=== PATIENT | female | born 1970 | race Caucasian/White ===

== ENCOUNTER 2017-10-27 02:42 | Inpatient (IN) | payer MEDICAID, MEDICARE, OTHER ==
--- NOTE | 2017-10-27 02:48 | ED PDOC ---
Arrival/HPI - General Time Seen by Provider: 10/27/17 02:43 Historian: Patient, Family (Daughter) - History of Present Illness Narrative History of Present Illness (Text): 10/27/17 02:47 Breanna Cruz is a 47 year old female, whose past medical history includes alcoholic cirrhosis, lupus, TIPS s/p hepatic encephalopathy, and seizure disorder, who presents to the Emergency department via EMS with altered mental status. Daughter states she noted patient to be altered this morning with associated weakness and reports patient has presented similarly in the past when her ammonia level becomes elevated. Daughter states patient was last seen normal at 17:00 yesterday. Daughter states patient is on the liver transplant list at [facility] and regularly takes lactulose. Patient reports neck pain. Limited HPI and ROS secondary to patient's altered mental status. PMD: Dr. Dori Guzmán Time/Duration: Other (today) Symptom Onset: Gradual Symptom Course: Unchanged Activities at Onset: Light Context: Home Past Medical History - Provider Review Nursing Documentation Reviewed: Yes - Infectious Disease Hx of Infectious Diseases: None - Tetanus Immunization Tetanus Immunization: Unknown - Cardiac Hx Cardiac Disorders: Yes Hx Hypertension: Yes - Pulmonary Hx Respiratory Disorders: No - Neurological Hx Neurological Disorder: Yes Hx Seizures: Yes - HEENT Hx HEENT Disorder: No - Renal Hx Renal Disorder: No - Endocrine/Metabolic Hx Endocrine Disorders: Yes Hx Systemic Lupus Erythematosus: Yes - Hematological/Oncological Hx Blood Disorders: No - Integumentary Hx Dermatological Disorder: No - Musculoskeletal/Rheumatological Hx Musculoskeletal Disorders: Yes Hx Falls: Yes - Gastrointestinal Hx Gastrointestinal Disorders: Yes Hx Liver Failure: Yes (on transplant list) - Genitourinary/Gynecological Hx Genitourinary Disorders: No - Psychiatric Hx Psychophysiologic Disorder: Yes Hx Anxiety: Yes Hx Substance Use: (unknown) - Past Surgical History Past Surgical History: No Previous - Surgical History Hx Orthopedic Surgery: Yes - Anesthesia Hx Anesthesia: Yes Hx Anesthesia Reactions: No Hx Malignant Hyperthermia: No - Suicidal Assessment Feels Threatened In Home Enviroment: No Family/Social History - Physician Review Nursing Documentation Reviewed: Yes Family/Social History: Unknown Family HX Smoking Status: Former Smoker Hx Alcohol Use: (unknown) Hx Substance Use: (unknown) Hx Substance Use Treatment: No Allergies/Home Meds Allergies/Adverse Reactions: Allergies No Known Allergies Allergy (Verified 10/27/17 02:47) Home Medications: Home Meds Medication Instructions Recorded Confirmed Rifaximin [Xifaxan] 550 mg PO BID 07/28/14 10/27/17 Calcium/Vitamin D [Oyster Shell 1 tab PO ACBD 10/27/17 10/27/17 Calcium/Vitamin D 500 mg-200 IU] Folic Acid 1 mg PO DAILY 10/27/17 10/27/17 Furosemide [Lasix] 20 mg PO DAILY 10/27/17 10/27/17 Hydroxychloroquine Sulfate 200 mg PO BID 10/27/17 10/27/17 Isoniazid [Niazid] 300 mg PO DAILY 10/27/17 10/27/17 Spironolactone [Aldactone] 50 mg PO DAILY 10/27/17 10/27/17 hydrOXYzine HCl [Atarax] 25 mg PO DAILY 10/27/17 10/27/17 Review of Systems - Review of Systems Systems not reviewed;Unavailable: Altered Mental Status Musculoskeletal: Neck Pain Neurological: Other (+altered mental status, +weakness) Physical Exam - Physical Exam Physical Exam Limitations: Altered Mental Status Vital Signs Reviewed: Yes Vital Signs Temp Pulse Resp BP Pulse Ox 10/27/17 05:44 72 17 126/72 100 10/27/17 04:48 78 18 95 10/27/17 04:10 84 17 138/87 95 10/27/17 02:43 98.3 F 79 18 115/76 94 L Temperature: Afebrile Blood Pressure: Normal Pulse: Regular Respiratory Rate: Normal Appearance: Positive for: Non-Toxic Pain Distress: None Mental Status: Positive for: other (Drowsy) Finger Stick Blood Glucose: 81 - Systems Exam Head: Present: Atraumatic, Normocephalic Pupils: Present: PERRL Extroacular Muscles: Present: EOMI Conjunctiva: Present: Normal Mouth: Present: Moist Mucous Membranes Neck: Present: Normal Range of Motion. No: Meningeal Signs, MIDLINE TENDERNESS , Paraspinal Tenderness Respiratory/Chest: Present: Clear to Auscultation, Good Air Exchange. No: Respiratory Distress, Accessory Muscle Use Cardiovascular: Present: Regular Rate and Rhythm, Normal S1, S2. No: Murmurs Abdomen: Present: Normal Bowel Sounds. No: Tenderness, Distention, Peritoneal Signs Back: No: CVA Tenderness, Midline Tenderness, Paraspinal Tenderness Upper Extremity: Present: NORMAL PULSES, Neurovascularly Intact, Capillary Refill < 2s, Other (Weakness in bilateral upper extremities). No: Cyanosis, Edema, Tenderness, Swelling, Erythema, Deformity Lower Extremity: Present: Other (Weakness in bilateral lower extremities). No: Edema, CALF TENDERNESS, Cyanosis Neurological: Present: GCS=15, CN II-XII Intact, Other (Weakness in all extremities) Skin: Present: Warm, Dry, Normal Color. No: Rashes Psychiatric: No: Alert (Drowsy) Medical Decision Making ED Course and Treatment: 10/27/17 03:04 Impression: 47 year old female presents to the Emergency department via EMS with an altered mental status and weakness. Plan: -- CT Head -- EKG, -- CXR -- Labs, ammonia level, alcohol level, cardiac enzymes, blood cultures -- Urinalysis, Urine Cultures, Urine Drug Screen -- Reassess and disposition Prior Visits: Notes and results from previous visits were reviewed. Patient was last seen in the emergency department on 01/05/14 for seizures. Patient was discharged home. Progress Notes: 10/27/17 03:55 Reviewed EKG, NSR at 76 bpm. Possible left atrial enalrgement. No acute changes. 10/27/17 04:27 CT Head shows: Brain: Mild atrophy. 4.7 x 1.4 x 2.7 cm hemorrhage within/about right basal ganglia. Mild surrounding edema. Grossly preserved moreira-white matter differentiation. Ventricles: No hydrocephalus. Minimal amount of hemorrhage within ventricle. Midline shift: None. Bones/joints: No acute fracture. Deformity of left mandibular condyle with subluxation of temporomandibular joint. Soft tissues: Unremarkable. Sinuses: No acute sinusitis. Mastoid air cells: No mastoid effusion. Orbits: Unremarkable as visualized. IMPRESSION: 1. Intraparenchymal hemorrhage, likely hypertensive. 2. Incidental/non-acute findings are described above. 10/27/17 04:[address] Mccall, neurosurgeon, who is aware and agrees with plan. States not a surgical case, he will consult. 10/27/17 04:[address] Quintana, service desk analyst, who is aware and agrees to evaluate pt for ICU admission. Pt will be admitted to ICU for intracerebral bleed under the hospitalist service. - Critical Care Critical Care Minutes: 30 minutes (management of intracerebral bleed) - Lab Interpretations Microbiology Results: Microbiology Results 10/27/17 03:45 Blood-Venous Blood Culture - Preliminary NO GROWTH AFTER 48 HOURS 10/27/17 03:25 Blood-Venous Blood Culture - Preliminary NO GROWTH AFTER 48 HOURS Lab Results: 10/27/17 03:45 10/27/17 03:45 Lab Results 10/27/17 04:50: Blood Type O POSITIVE, Antibody Screen Negative, BBK History Checked Patient has bt 10/27/17 03:45: Acetaminophen < 10.0 L 10/27/17 03:45: Alcohol, Quantitative < 10 10/27/17 03:45: Sodium 141, Potassium 4.1, Chloride 108 H, Carbon Dioxide 26, Anion Gap 11, BUN 12, Creatinine 0.6 L, Est GFR ( Amer) > 60, Est GFR ( Non-Af Amer) > 60, Random Glucose 81, Calcium 8.4, Phosphorus 4.1, Magnesium 1.7 , Total Bilirubin 3.3 H, AST 111 H, ALT 56, Alkaline Phosphatase 297 H, Lactate Dehydrogenase 1174 H, Total Creatine Kinase 141, Troponin I < 0.01, Total Protein 7.4, Albumin 2.4 L, Globulin 5.0, Albumin/Globulin Ratio 0.5 L 10/27/17 03:45: PT 20.5 H, INR 1.76 H, APTT 46.7 H 10/27/17 03:45: WBC 2.9 L*, RBC 2.87 L, Hgb 9.9 L, Hct 30.4 L, MCV 105.9 H, MCH 34.5, MCHC 32.6, RDW 19.7 H, Plt Count 118 L, MPV 9.3, Gran % 45.2 L, Lymph % ( Auto) 30.2, [place] % (Auto) 19.8 H, Eos % (Auto) 3.1, Baso % (Auto) 1.7, Gran # 1.30 L, Lymph # (Auto) 0.9 L, [place] # (Auto) 0.6, Eos # (Auto) 0.1, Baso # (Auto ) 0.05 10/27/17 02:15: Ammonia 45 H I have reviewed the lab results: Yes - RAD Interpretation Radiology Orders: 10/27/17 02:49 HEAD W/O CONTRAST [CT] Stat 10/27/17 02:50 CHEST TWO VIEWS (PA/LAT) [RAD] Stat [employer] Rental Clerk: Radiologist - EKG Interpretation Interpreted by ED Physician: Yes Type: 12 lead EKG - Medication Orders Current Medication Orders: Albuterol/Ipratropium (Duoneb 3 Mg/0.5 Mg (3 Ml) Ud) 3 ml IH [id number] PRN PRN Reason: Shortness of Breath Folic Acid (Folic Acid) 1 mg PO DAILY [facility] Last Admin: 10/29/17 09:17 Dose: 1 mg Sodium Chloride (Sodium Chloride 0.9%) 1,000 mls @ 100 mls/hr IV .Q10H SARKIS Last Admin: 10/28/17 12:19 Dose: 100 mls/hr eMAR Start Stop Document 10/28/17 12:19 MB (Rec: 10/28/17 12:20 MB ADMIN-PC) Intravenous Solution Start Date 10/28/17 Start Time 03:00 Ibuprofen (Motrin Tab) 400 mg PO Q6H PRN PRN Reason: Headache Last Admin: 10/29/17 09:17 Dose: 400 mg Lactulose (Enulose) 20 gm PO Q6H SARKIS Last Admin: 10/29/17 09:18 Dose: 20 gm Multivitamins/Minerals (Therapeutic-M Tab) 1 tab PO 0800 SARKIS Last Admin: 10/29/17 09:17 Dose: 1 tab Pantoprazole Sodium (Protonix Ec Tab) 40 mg PO DAILY [facility] Last Admin: 10/29/17 09:17 Dose: 40 mg Rifaximin (Xifaxan) 550 mg PO BID SARKIS PRN Reason: Protocol Last Admin: 10/28/17 18:45 Dose: 550 mg Discontinued Medications Acetaminophen (Tylenol 325mg Tab) 325 mg PO STAT STA Stop: 10/28/17 18:23 Last Admin: 10/28/17 18:42 Dose: 325 mg MAR Pain/Vitals Document 10/28/17 18:42 MB (Rec: 10/28/17 18:43 MB ADMIN-PC) Pain Reassessment Is This A Pain ReAssessment? Yes Sleep Is patient sleeping during reassessment? No Presence of Pain Presence of Pain Yes Pain Scale Used Pain Scale Used 5 Location Pain Location Body Gear Generator Set Up Operator Description Constant Scale Used Numeric Pain Behavior Moaning Crying Irritability Withdrawal from Touch Aggravating Factors ADL's Changing Position Alleviating Factors Medication Levetiracetam (Keppra 500mg Ivpb) 500 mg in 100 mls @ 460 mls/hr IV Q12 SARKIS Last Admin: 10/28/17 10:09 Dose: 460 mls/hr eMAR Start Stop Document 10/28/17 10:09 MB (Rec: 10/28/17 10:10 MB ADMIN-PC) Intravenous Solution Start Date 10/28/17 Start Time 10:10 End Date 10/28/17 End time 10:40 Total Infusion Time 30 Phytonadione 10 mg/ Sodium (Chloride) 51 mls @ 100 mls/hr IV ONCE ONE Stop: 10/27/17 09:19 Last Admin: 10/27/17 09:18 Dose: 100 mls/hr eMAR Start Stop Document 10/27/17 09:18 GLI (Rec: 10/27/17 09:19 GLI ADMIN-PC) Intravenous Solution Start Date 10/27/17 Start Time 09:19 End Date 18 Lactulose (Generlac) 200 gm NC BID SARKIS Lactulose (Enulose) 20 gm PO HS SARKIS Last Admin: 10/27/17 23:09 Dose: 20 gm Magnesium Oxide (Mag-Ox) 400 mg PO STAT STA Stop: 10/28/17 15:20 Last Admin: 10/28/17 15:36 Dose: 400 mg Morphine Sulfate (Morphine) 1 mg IVP ONCE ONE Stop: 10/28/17 07:08 Last Admin: 10/28/17 19:02 Dose: Not Given Non-Admin Reason: BP Parameters Not Met MAR Pain Assessment Document 10/28/17 19:02 MB (Rec: 10/28/17 19:02 MB ADMIN-PC) Pain Reassessment Is this a pain reassessment? Yes Sleep Is patient sleeping during reassessment? Yes Morphine Sulfate (Morphine) 1 mg IVP ONCE ONE Stop: 10/28/17 10:16 Last Admin: 10/28/17 19:02 Dose: Not Given Non-Admin Reason: BP Parameters Not Met MAR Pain Assessment Document 10/28/17 19:02 MB (Rec: 10/28/17 19:02 MB ADMIN-PC) Pain Reassessment Is this a pain reassessment? Yes Sleep Is patient sleeping during reassessment? Yes Pantoprazole Sodium (Protonix Inj) 40 mg IVP DAILY SARKIS Last Admin: 10/28/17 10:10 Dose: 40 mg IVP Administration Document 10/28/17 10:10 MB (Rec: 10/28/17 10:10 MB ADMIN-PC) Charges for Administration # of IVP Administrations 1 NIHSS Scale ([place]) Time Performed: 02:48 - How Severe is the Stoke Baseline Level of Consciousness: 1=Drowsy LOC to Questions: 2=Neither correct LOC to commands: 1=Obeys one correctly Best Gaze: 0=Normal Visual: 0=No visual loss Facial: 1=Minor asymmetry Motor Arm - Left: 3=No effort against gravity (falls immediately) Motor Arm - Right: 0=No drift Motor Leg - Left: 3=No effort against gravity (falls immediately) Motor Leg - Right: 0=No drift Limb Ataxia: 2=Present both Sensory: 1=Mild to moderate loss Best Language: 1=Mild to moderate aphasia Dysarthia: 1=Mild to moderate slurring Extinction & Inattention (Neglect): 1=Partial neglect (mild hillary-attention) Score: 17 Risk Level: Mod/Sev Stroke Risk rTPA Inclusion/Exclusion - Refusal of Treatment Patient Refused Treatment: No - Inclusion Criteria for Altepase Patient is 18 years or Older: Yes The Clinical Diagnosis of Ischemic Stroke That is Causing a Potentially Disabling Neurological Deficit: Yes Time of Onset is Well Established to be Less Than 270 Minute Before Treatment Would Begin: No Risk/Benefit Discussed With Patient/Family Member Present: Yes - Exclusion Criteria for Altepase Uncontrolled Hypertension at Time of Treatment (Systolic BP above 185 or Diastolic BP above 110 mmHg): No Active Internal Bleeding: No Known Bleeding Diathesis Including but Not Limited to: Platelets Below 100,000/ mm,PTT Above 40 sec After Heparin Use, Current Use of Oral Anitcoagulant With INR Greater Than 1.7 or PT Greater Than 15 secs: Yes Evidence of an Intracranial Hemorrhage: Yes Evidence of Major Acute Infarct With Signs Greater Than 1/3 MCA Territory: Yes Suspicion of Subarachnoid Hemorrhage on Pretreatment Evaluation Even if CT Head Negative For Hemorrhage: No - Warning to TPA With Conditions Following Conditions Weighed Against Anticipated Benefit: No - Scribe Statement The provider has reviewed the documentation as recorded by the Wilfredo Berg training under Fransisca Cody All medical record entries made by the Nicoletteibmundo were at my direction and personally dictated by me. I have reviewed the chart and agree that the record accurately reflects my personal performance of the history, physical exam, medical decision making, and the department course for this patient. I have also personally directed, reviewed, and agree with the discharge instructions and disposition. Disposition/Present on Arrival - Present on Arrival Any Indicators Present on Arrival: No History of DVT/PE: No History of Uncontrolled Diabetes: No Urinary Catheter: No History Surgical Site Infection Following: None - Disposition Have Diagnosis and Disposition been Completed?: Yes Diagnosis: Intracerebral hemorrhage Disposition: HOSPITALIZED Disposition Time: 05:00 Patient Problems: Current Active Problems Problem Status Onset Intracerebral hemorrhage Acute Condition: CRITICAL
[2017-10-27 03:58] LABS: BASO # 0.05 K/mm3 (0.0-2.0); BASO % 1.7 % (0.0-3.0); EOS # 0.1 (0.0-0.7); EOS % 3.1 % (1.5-5.0); GRAN # 1.3 (1.4-6.5); GRAN % 45.2 % (50.0-68.0); HEMOGLOBIN 9.9 g/dL (12.0-16.0); LYMPH # 0.9 (1.2-3.4); LYMPH % 30.2 % (22.0-35.0); MEAN CELL VOLUME 105.9 fl (80.0-105.0); MEAN CORPUSCULAR HEMOGLOBIN 34.5 pg (25.0-35.0); MEAN CORPUSCULAR HGB CONC 32.6 g/dl (31.0-37.0); MEAN PLATELET VOLUME 9.3 fl (7.0-11.0); MONO # 0.6 (0.1-0.6); MONO % 19.8 % (1.0-6.0); RBC 2.87 10^6/uL (3.5-6.1); RED CELL DISTRIBUTION WIDTH 19.7 % (11.5-14.5)
[2017-10-27 04:00] LABS: WHITE BLOOD COUNT 2.9 10^3/ul (4.5-11.0)
[2017-10-27 04:09] LABS: ALB/GLOB RATIO 0.5 (1.1-1.8); ALBUMIN 2.4 g/dL (3.0-4.8); ALT/SGPT 56 U/L (7-56); AST/SGOT 111 U/L (14-36); BLOOD UREA NITROGEN 12 mg/dL (7-21); CALCIUM 8.4 mg/dL (8.4-10.5); GFR AFRICAN-AMERICAN > 60; GFR NON-AFRICAN AMERICAN > 60; MAGNESIUM 1.7 mg/dL (1.7-2.2)
--- NOTE | 2017-10-27 04:18 | CT ---
EXAM: CT Head Without Intravenous Contrast CLINICAL HISTORY: 47 years old, female; Signs and symptoms; Altered mental status/memory loss; Additional info: AMS TECHNIQUE: Axial computed tomography images of the head/brain without intravenous contrast. All CT scans at this facility use one or more dose reduction techniques, viz.: automated exposure control; ma/kV adjustment per patient size (including targeted exams where dose is matched to indication; i.e. head); or iterative reconstruction technique. Coronal and sagittal reformatted images were created and reviewed. COMPARISON: No relevant prior studies available. FINDINGS: Brain: Mild atrophy. 4.7 x 1.4 x 2.7 cm hemorrhage within/about right basal ganglia. Mild surrounding edema. Grossly preserved moreira-white matter differentiation. Ventricles: No hydrocephalus. Bones/joints: No acute fracture. Deformity of left mandibular condyle with subluxation of temporomandibular joint. Soft tissues: Unremarkable. Sinuses: No acute sinusitis. Mastoid air cells: No mastoid effusion. Orbits: Unremarkable as visualized. IMPRESSION: 1. Intraparenchymal hemorrhage, likely hypertensive. 2. Incidental/non-acute findings are described above.
[2017-10-27 04:20] LABS: TROPONIN I < 0.01 ng/mL
[2017-10-27 05:15] LABS: INR 1.76 (0.93-1.08); PARTIAL THROMBOPLASTIN TIME 46.7 Seconds (25.1-36.5); PROTHROMBIN TIME 20.5 SECONDS (9.4-12.5)
[2017-10-27] MEDS ORDERED: Labetalol 5 mg/ml Inj 20ML IV PRN (06:12)
[2017-10-27] MEDS ORDERED: Lactulose 10 gm/15 ml (Rectal Use) PR ONE (06:20)
--- NOTE | 2017-10-27 06:29 | CP.PCM.HP ---
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 As per patient's daughter they last saw patient well at 4:30 pm. At 1:30 am, when daughter checked on patient patient was slumped on the sofa, and was not responding. Daughter was able to arouse patient, patient was able to say she wanted to void, however when patient tried to get up , her left upper and lower extremities were weak. Upon, evaluating patient in the ED, patient was arousable, denies headache. Patient was voluntary moving her right upper upper and lower extremities. Unable to obtain detail ROS due to mental status. In the ED, patient had CT head revealing right basal ganglia hemorrhage. PMHx: As above PSHx: tips, left knee replacement FMHx: family history of htn Social: former heavy drinker, been sober for 6 years, former tobacco abuse, no illicit drug use. Lives with her kids and boy friend Home meds: as per chart. Present on Admission - Present on Admission Any Indicators Present on Admission: No History of DVT/PE: No History of Uncontrolled Diabetes: No Urinary Catheter: No Decubitus Ulcer Present: No History Surgical Site Infection Following: None Review of Systems - Review of Systems Systems not reviewed;Unavailable: Uncooperative Review of Systems: Unable to obtain detail ROS due to mental status. Past Patient History - Infectious Disease Hx of Infectious Diseases: None - Tetanus Immunizations Tetanus Immunization: Unknown - Past Medical History & Family History Past Medical History?: Yes - Past Social History Smoking Status: Former Smoker Alcohol: Other (former heavy drinker) Drugs: Denies Home Situation {Lives}: With Family - CARDIAC Hx Cardiac Disorders: Yes Hx Hypertension: Yes - PULMONARY Hx Respiratory Disorders: No - NEUROLOGICAL Hx Neurological Disorder: Yes Hx Seizures: Yes - HEENT Hx HEENT Problems: No - RENAL Hx Chronic Kidney Disease: No - ENDOCRINE/METABOLIC Hx Endocrine Disorders: Yes Hx Systemic Lupus Erythematosus: Yes - HEMATOLOGICAL/ONCOLOGICAL Hx Blood Disorders: No - INTEGUMENTARY Hx Dermatological Problems: No - MUSCULOSKELETAL/RHEUMATOLOGICAL Hx Musculoskeletal Disorders: Yes Hx Falls: Yes - GASTROINTESTINAL Hx Gastrointestinal Disorders: Yes Hx Liver Failure: Yes (on transplant list) - GENITOURINARY/GYNECOLOGICAL Hx Genitourinary Disorders: No - PSYCHIATRIC Hx Psychophysiologic Disorder: Yes Hx Anxiety: Yes Hx Substance Use: (unknown) - SURGICAL HISTORY Hx Orthopedic Surgery: Yes - ANESTHESIA Hx Anesthesia: Yes Hx Anesthesia Reactions: No Hx Malignant Hyperthermia: No Meds Allergies/Adverse Reactions: Allergies Allergy/AdvReac Type Severity Reaction Status Date / Time No Known Allergies Allergy Verified 10/27/17 02:47 Physical Exam - Constitutional Appears: No Acute Distress - Head Exam Head Exam: ATRAUMATIC, NORMAL INSPECTION, NORMOCEPHALIC - Eye Exam Eye Exam: EOMI, Normal appearance, PERRL, Scleral icterus Pupil Exam: NORMAL ACCOMODATION, PERRL - ENT Exam ENT Exam: Mucous Membranes Moist - Neck Exam Neck exam: Positive for: Normal Inspection - Respiratory Exam Respiratory Exam: Clear to Auscultation Bilateral, NORMAL BREATHING PATTERN. absent: Rales, Rhonchi, Wheezes, Respiratory Distress, Stridor - Cardiovascular Exam Cardiovascular Exam: REGULAR RHYTHM, RRR, +S1, +S2. absent: Diastolic murmur, Gallop, Irregular Rhythm, JVD, Rubs, Systolic Murmur - GI/Abdominal Exam GI & Abdominal Exam: Normal Bowel Sounds, Soft, Tenderness (diffuse ). absent: Diminished Bowel Sounds, Distended, Firm, Guarding, Rebound, Rigid Additional comments: no fluid wave. - Extremities Exam Extremities exam: Positive for: normal inspection. Negative for: pedal edema, tenderness - Back Exam Back exam: NORMAL INSPECTION - Neurological Exam Neurological exam: Oriented x3 Additional comments: Sleepy but arousable, a&ox3 Left upper and lower extremities with flaccid paralysis. Able to earth mover toes on the left, and right 5/5 motor strength on the right upper and lower extremities left sided neglect right sided facial drooping GCS 15 - Psychiatric Exam Psychiatric exam: Agitated - Skin Skin Exam: Dry, Intact, Warm Results - Vital Signs Recent Vital Signs: Last Vital Signs Temp 98.3 F 10/27/17 02:43 Pulse 72 10/27/17 05:44 Resp 17 10/27/17 05:44 BP 126/72 10/27/17 05:44 Pulse Ox 100 10/27/17 05:44 - Labs Result Diagrams: 10/27/17 03:45 10/27/17 03:45 Labs: Laboratory Results - last 24 hr 10/27/17 10/27/17 10/27/17 02:15 03:45 03:45 WBC 2.9 L* RBC 2.87 L Hgb 9.9 L Hct 30.4 L MCV 105.9 H MCH 34.5 MCHC 32.6 RDW 19.7 H Plt Count 118 L MPV 9.3 Gran % 45.2 L Lymph % (Auto) 30.2 Hand % (Auto) 19.8 H Eos % (Auto) 3.1 Baso % (Auto) 1.7 Gran # 1.30 L Lymph # (Auto) 0.9 L Hand # (Auto) 0.6 Eos # (Auto) 0.1 Baso # (Auto) 0.05 PT 20.5 H INR 1.76 H APTT 46.7 H Sodium Potassium Chloride Carbon Dioxide Anion Gap BUN Creatinine Est GFR ( Amer) Est GFR (Non-Af Amer) Random Glucose Calcium Phosphorus Magnesium Total Bilirubin AST ALT Alkaline Phosphatase Ammonia 45 H Lactate Dehydrogenase Total Creatine Kinase Troponin I Total Protein Albumin Globulin Albumin/Globulin Ratio Acetaminophen Alcohol, Quantitative 10/27/17 10/27/17 10/27/17 03:45 03:45 03:45 WBC RBC Hgb Hct MCV MCH MCHC RDW Plt Count MPV Gran % Lymph % (Auto) Hand % (Auto) Eos % (Auto) Baso % (Auto) Gran # Lymph # (Auto) Hand # (Auto) Eos # (Auto) Baso # (Auto) PT INR APTT Sodium 141 Potassium 4.1 Chloride 108 H Carbon Dioxide 26 Anion Gap 11 BUN 12 Creatinine 0.6 L Est GFR ( Amer) > 60 Est GFR (Non-Af Amer) > 60 Random Glucose 81 Calcium 8.4 Phosphorus 4.1 Magnesium 1.7 Total Bilirubin 3.3 H AST 111 H ALT 56 Alkaline Phosphatase 297 H Ammonia Lactate Dehydrogenase 1174 H Total Creatine Kinase 141 Troponin I < 0.01 Total Protein 7.4 Albumin 2.4 L Globulin 5.0 Albumin/Globulin Ratio 0.5 L Acetaminophen < 10.0 L Alcohol, Quantitative < 10 Assessment & Plan - Assessment and Plan (Free Text) Assessment: 47 Y/O with history of decompensated liver cirrhosis and seizures due to etoh admitted with right basal ganglia hemorrhage. Plan: Neurology - Right basal ganglia hemorrhage likely due to coagulopathy induced by cirrhotic liver INR 1.76, will give 2 units of ffp, and check INR post transfusion Neurosurgery was contact, patient is not surgical candidate Neurology is consult Neuro checks/seizure precaution Head of bed elevation above 45 degrees swallow eval PT/OT Keep SBP between 120-130 - h/o seizure disorder- will resume keppra - h/o hepatic encephalopathy - ammonia is elevated, rectal lactulose to titrate bowel movement to 2-3x per day. Cardio- stable, BP management as above Pulm: stable, supplemental ogygen prn ID: No sepsis at this time, will monitor Was on isonazid for tb prophylaxis, will hold it due to npo status. GI- decompensated liver cirrhosis with elevated T bili compared to previous ( from 2 years ago), no signs of ascites on exam, will obtain abdominal u/s due to abdominal tenderness on exam Meld score 17. NPO pending swallow eval, protonix for gi prophylaxis. Endo- will maintain glucose between 80-110 Renal- stable, will continue to monitor Heme- chronic leukopenia likely due to lupus drug, will monitor for now Chronic anemia- h/h stable, will continue to monitor Lupus drug on hold DVT prophylaxis: scds Patient seen, examined and case discussed with Dr Quintana. - Date & Time Date: 10/27/17 Time: 06:50 NIHSS Stroke Scale 3 - Date/Time Evaluation Performed Date Performed: 10/27/17 Time Performed: 06:05 When Was NIHSS Performed: Baseline - How Severe is the Stroke Level of Consciousness: 1=Drowsy LOC to Questions: 0=Both comments correct LOC to commands: 0=Obeys both correctly Visual: 0=No visual loss Facial: 0=Normal Motor Arm - Left: 4=No movement Motor Arm - Right: 0=No drift Motor Leg - Left: 3=No effort against gravity (falls immediately) Motor Leg - Right: 0=No drift Limb Ataxia: 1=Present Upper or Lower Sensory: 1=Mild to moderate loss Best Language: 0=No aphasia Dysarthia: 0=Normal articulation Extinction & Inattention (Neglect): 1=Partial neglect (mild hillary-attention) Severity Of Stroke: 5-15 = Moderate Stroke <Edmundo Quintana Q - Last Filed: 10/27/17 06:59> Results - Vital Signs Recent Vital Signs: Last Vital Signs Temp 98.4 F 10/27/17 06:48 Pulse 73 10/27/17 06:40 Resp 16 10/27/17 06:40 BP 138/67 10/27/17 06:18 Pulse Ox 100 10/27/17 06:40 - Labs Result Diagrams: 10/27/17 03:45 10/27/17 03:45 Labs: Laboratory Results - last 24 hr 10/27/17 06:15 Urine Opiates Screen Negative Urine Methadone Screen Negative Ur Barbiturates Screen Negative Ur Phencyclidine Scrn Negative Ur Amphetamines Screen Negative U Benzodiazepines Scrn Negative U Oth Cocaine Metabols Negative U Cannabinoids Screen Negative Attending/Attestation - Attestation I have personally seen and examined this patient.: Yes I have fully participated in the care of the patient.: Yes I have reviewed all pertinent clinical information: Yes Notes (Text): 10/27/17 06:58 I agree with the above mentioned note and exam by the resident with the addition /exception of the followin47 y/o female with a PMHx Alcoholic liver cirrhosis, s/p TIPS, seizure disorder secondary to Etoh abuse and SLE presented to the ED via EMS secondary to altered mental status. CT of the head found to have a right basal ganglia bleed with mild edema, no midline shift. Prelim read approximates the size at 4.7x1.4x2.7cm. Patient was AAOx3 during my examination, however did appear slightly lethargic but was able to protect her airway saturating 96% on room air. 5/5 strength RUE/RLE; 0/5 strength LUE, 1/5 strength LLE; sensation intact I discussed the case with Dr. Le in the ED who stated he spoke with Dr. Mccall (NeuroSx) who stated that the patient is not a surgical candidate and recommended to reverse her elevated INR and maintain normotension. Neuro consult placed Awaiting FFP transfusion (already ordered); will repeat PT/INR after FFP is administered Elevated Ammonia; will give lactulose enema given that she will be NPO until she passes a swallow eval. All labs and images available thus far have been reviewed personally total time of care: 45 minutes
[2017-10-27 06:55] LABS: BARBITURATES, UR NEGATIVE (NEGATIVE); BENZODIAZEPINES, UR NEGATIVE (NEGATIVE); OPIATES, UR NEGATIVE (NEGATIVE); PHENCYCLIDINE, UR NEGATIVE (NEGATIVE)
[2017-10-27 07:23] LABS: URINE BILIRUBIN SMALL (NEGATIVE); URINE BLOOD SMALL (NEGATIVE); URINE GLUCOSE (UA) NEGATIVE (NEGATIVE); URINE LEUKOCYTE ESTERASE TRACE Leu/uL (NEGATIVE); URINE NITRATE NEGATIVE (NEGATIVE); URINE PROTEIN TRACE mg/dL (<30 mg/dL)
[2017-10-27 07:27] LABS: URINE APPEARANCE CLEAR (CLEAR); URINE COLOR YELLOW (YELLOW)
[2017-10-27 07:45] LABS: URINE AMORPHOUS SEDIMENT FEW; URINE BACTERIA MANY (NEG)
--- NOTE | 2017-10-27 08:08 | CP.CCUPN ---
<VanessaZaheer - Last Filed: 10/27/17 13:53> CCU Subjective - Physician Review Subjective (Free Text): Zaheer Mendez PGY [address] Arita Patient was seen and examined at bedside in ICU. Patient is arousable but wants to sleep. She is able to move her right side with ease but L leg with more difficulty and L arm none. ROS was limited due to patient's status and unwillingness for exam. Patient's daughter states that the patient's entire medical care is at [facility] and provides a number for "Caryl, the patient's coordinator" [phone]. Daughter states that she was told patient can be transferred once medically stable. A call was made to Caryl but with no response and no voicemail was left. Transfer services @ [phone] were also called and they stated that transfer would be to hepatology but that it would not be fit to transfer from ICU to hepatology The information was relayed to the daughter. CCU Objective - Vital Signs / Intake & Output Vital Signs (Last 4 hours): Vital Signs Temp Pulse Resp BP Pulse Ox 10/27/17 08:00 72 15 100 10/27/17 07:59 73 20 113/72 100 10/27/17 07:50 69 17 98 10/27/17 07:40 70 22 100 10/27/17 07:30 77 25 H 100 10/27/17 07:28 73 30 H 122/61 100 10/27/17 07:20 82 47 H 100 10/27/17 07:10 71 35 H 100 10/27/17 07:00 77 22 100 10/27/17 06:59 75 17 122/67 100 10/27/17 06:50 74 18 100 10/27/17 06:48 98.4 F 10/27/17 06:40 73 16 100 10/27/17 06:36 74 13 100 10/27/17 06:18 97.9 F 78 17 138/67 100 10/27/17 05:44 72 17 126/72 100 - Physical Exam Physical Exam Limitations: Positive for: Clinical Condition, Uncooperative Head: Positive for: Atraumatic, Normocephalic Pupils: Positive for: PERRL Conjunctiva: Positive for: Icteric Ears: Positive for: Normal Mouth: Positive for: Moist Mucous Membranes Pharnyx: Positive for: Normal Nose (Internal): Positive for: Normal Inspection Neck: Positive for: Normal Range of Motion. Negative for: Meningeal Signs, MIDLINE TENDERNESS, Paraspinal Tenderness Respiratory/Chest: Positive for: Clear to Auscultation, Good Air Exchange, Other (on NC 2L). Negative for: Respiratory Distress, Accessory Muscle Use, Wheezes, Rales, Rhonchi Cardiovascular: Positive for: Regular Rate and Rhythm, Normal S1, S2. Negative for: Murmurs Abdomen: Positive for: Normal Bowel Sounds, Mass/Organomegaly (hepatomegaly). Negative for: Tenderness, Distention, Peritoneal Signs Back: Negative for: CVA Tenderness, Midline Tenderness, Paraspinal Tenderness Upper Extremity: Positive for: NORMAL PULSES, Neurovascularly Intact, Capillary Refill < 2s, Other (Weakness in bilateral upper extremities). Negative for: Cyanosis, Edema, Tenderness, Swelling, Erythema, Deformity Lower Extremity: Positive for: Other (Weakness in bilateral lower extremities). Negative for: Edema, CALF TENDERNESS, Cyanosis Neurological: Positive for: GCS=15, CN II-XII Intact, Other (Weakness in all extremities) Skin: Positive for: Warm, Dry. Negative for: Rashes, Normal Color Psychiatric: Negative for: Alert (Drowsy) - Medications Active Medications: Active Medications Generic Name Dose Route Start Last Admin Trade Name Freq PRN Reason Stop Dose Admin Levetiracetam 500 mg in 100 mls @ 460 mls/hr 10/27/17 10:00 Keppra 500mg Ivpb IV Q12 SARKIS Lactulose 200 gm 10/27/17 10:00 Generlac CA BID SARKIS Pantoprazole Sodium 40 mg 10/27/17 10:00 Protonix Inj IVP DAILY SRAKIS - Patient Studies Lab Studies: Lab Studies 10/27/17 10/27/17 Range/Units 06:15 06:15 Urine Color Yellow (YELLOW) Urine Appearance Clear (CLEAR) Urine pH 7.0 (4.7-8.0) Ur Specific [place] 1.015 (1.005-1.035) Urine Protein Trace H (<30 mg/dL) mg/dL Urine Glucose (UA) Negative (NEGATIVE) mg/dL Urine Ketones Negative (NEGATIVE) mg/dL Urine Blood Small H (NEGATIVE) Urine Nitrate Negative (NEGATIVE) Urine Bilirubin Small H (NEGATIVE) Urine Urobilinogen 1.0 H (<1 E.U./dL) E.U./dL Ur Leukocyte Esterase Trace H (NEGATIVE) Simran/uL Urine RBC 2 - 5 (0-2) /hpf Urine WBC 1 - 3 (0-6) /hpf Ur Epithelial Cells 3 - 4 (0-5) /hpf Amorphous Sediment Few Urine Bacteria Many (NEG) Urine Opiates Screen Negative (NEGATIVE) Urine Methadone Screen Negative (NEGATIVE) Ur Barbiturates Screen Negative (NEGATIVE) Ur Phencyclidine Scrn Negative (NEGATIVE) Ur Amphetamines Screen Negative (NEGATIVE) U Benzodiazepines Scrn Negative (NEGATIVE) U Oth Cocaine Metabols Negative (NEGATIVE) U Cannabinoids Screen Negative (NEGATIVE) Laboratory Results - last 24 hr 10/27/17 10/27/17 06:15 06:15 Urine Color Yellow Urine Appearance Clear Urine pH 7.0 Ur Specific [place] 1.015 Urine Protein Trace H Urine Glucose (UA) Negative Urine Ketones Negative Urine Blood Small H Urine Nitrate Negative Urine Bilirubin Small H Urine Urobilinogen 1.0 H Ur Leukocyte Esterase Trace H Urine RBC 2 - 5 Urine WBC 1 - 3 Ur Epithelial Cells 3 - 4 Amorphous Sediment Few Urine Bacteria Many Urine Opiates Screen Negative Urine Methadone Screen Negative Ur Barbiturates Screen Negative Ur Phencyclidine Scrn Negative Ur Amphetamines Screen Negative U Benzodiazepines Scrn Negative U Oth Cocaine Metabols Negative U Cannabinoids Screen Negative Fingerstick Blood Sugar Results: 81 Review of Systems - Review of Systems Systems not reviewed;Unavailable: Uncooperative Critical Care Progress Note - Extremities/Vascular Does the Patient have a Central Venous Catheter?: No Does the Patient need a Central Venous Catheter?: No - Prophylaxis GI Prophylaxis GI: PPI - Prophylaxis DVT Prophylaxis DVT: SCDs - Nutrition Nutrition: Nutrition Category Date Time Status NPO Diet [DIET] Diets 10/27/17 Breakfast Ordered Assessment/Plan - Assessment and Plan (Free Text) Assessment: 47 y/o F with pmh of liver cirrhosis and seizures due to etoh admitted with left sided weakness found to have right basal ganglia hemorrhage on CT. Plan: Neuro: - Right basal ganglia hemorrhage likely due to coagulopathy induced by cirrhotic liver vs poorly controlled htn - Neurosurgery has seen pt (Dr. Mccall); pt not surgical candidate - Neurology is consulted; rec no need for hypertonic saline or steroids at this time, will repeat CT Head - Neuro checks - seizure precautions - aspiration precautions - Head of bed elevated above 45 degrees - Formal swallow eval recommending altered GI/dypshagia diet and monitoring while on PO intake; will advanced diet - PT/OT eval - Keep SBP b/w 140-160 - h/o seizure disorder- continue keppra ivp - h/o hepatic encephalopathy- ammonia is elevated at 45; rifaximin and lactulose started Cardio: stable - maintain MAP >65 mmHg - BP management as above to maintain cerebral perfusion Pulm: - Stable on O2 NC - monitor for signs of hypoxemia or neural changes ID: - No signs sepsis at this time, will monitor - cont to monitor for fevers or signs of infections GI: - decompensated liver cirrhosis with elevated t bili (3.3) - ABD US shows cirrhosis of liver with TIPS in place; no evidence of ascites - diet advanced from NPO - Protonix for GI ppx Endo - Maintain glucose between 80-110 as per NICE trial Renal: - Stable BUN/Cr; will continue to monitor Heme: - INR is elevated at 1.76, pt received 2 units of ffp, recheck INR post infusion - Chronic leukopenia likely due to lupus drug - Chronic macrocytic anemia- h/h stable - check vit B12 and folate DIET: mechanically altered dysphagia diet w/ thin liquids GI ppx: protonix DVT ppx: SCDs Dispo: Good prognosis; transfer to med/surg after FFP and swallow eval Patient was seen, examined and discussed with attending, Dr. Juan J Mendez PGY1 Pager # [phone] <Martinez Arita - Last Filed: 10/28/17 15:11> CCU Objective - Vital Signs / Intake & Output Intake and Output (Last 8hrs): Intake & Output 10/28/17 10/28/17 10/28/17 06:59 14:59 22:59 Intake Total 1514 Output Total 125 Balance 1389 Intake: IV 900 Left Hand 900 Oral 80 Blood Product 534 Output: Urine 125 Urine, Voided 125 Other: # Bowel Movements 0 - Medications Active Medications: Active Medications Generic Name Dose Route Start Last Admin Trade Name Freq PRN Reason Stop Dose Admin Albuterol/Ipratropium 3 ml 10/28/17 12:45 Duoneb 3 Mg/0.5 Mg (3 Ml) Ud IH [id number] PRN Shortness of Breath Folic Acid 1 mg 10/29/17 10:00 Folic Acid PO DAILY SARKIS Sodium Chloride 1,000 mls @ 100 mls/hr 10/27/17 17:30 10/28/17 12:19 Sodium Chloride 0.9% IV 100 mls/hr .Q10H SARKIS Administration Lactulose 20 gm 10/28/17 13:15 10/28/17 14:44 Enulose PO 20 gm Q6H SARKIS Administration Multivitamins/Minerals 1 tab 10/29/17 08:00 Therapeutic-M Tab PO 0800 SARKIS Pantoprazole Sodium 40 mg 10/29/17 10:00 Protonix Ec Tab PO DAILY SARKIS Rifaximin 550 mg 10/27/17 12:00 10/28/17 10:11 Xifaxan PO 550 mg BID SARKIS Administration Protocol - Patient Studies Lab Studies: Microbiology Studies 10/27/17 06:15 Urine Culture - Final Urine,Clean Catch 10-50,000 CFU/ML. MULTIPLE SPECIES. PROBABLE CONTAMINATION. Lab Studies 10/28/17 10/28/17 10/28/17 Range/Units 12:00 05:30 05:30 WBC (4.5-11.0) 10^3/ul RBC (3.5-6.1) 10^6/uL Hgb (12.0-16.0) g/dL Hct (36.0-48.0) % MCV (80.0-105.0) fl MCH (25.0-35.0) pg MCHC (31.0-37.0) g/dl RDW (11.5-14.5) % Plt Count (120.0-450.0) 10^3/uL MPV (7.0-11.0) fl Gran % (50.0-68.0) % Lymph % (Auto) (22.0-35.0) % Cobb % (Auto) (1.0-6.0) % Eos % (Auto) (1.5-5.0) % Baso % (Auto) (0.0-3.0) % Gran # (1.4-6.5) Lymph # (Auto) (1.2-3.4) Cobb # (Auto) (0.1-0.6) Eos # (Auto) (0.0-0.7) Baso # (Auto) (0.0-2.0) K/mm3 Neutrophils % (Manual) (50.0-70.0) % Lymphocytes % (Manual) (22.0-35.0) % Monocytes % (Manual) (1.0-6.0) % Eosinophils % (Manual) (0.0-3.0) % Nucleated RBC % % Platelet Evaluation (NORMAL) Poikilocytosis (manual Anisocytosis (manual) Microcytosis (manual) Macrocytosis (manual) Schistocytes PT 16.8 H (9.4-12.5) SECONDS INR 1.45 H (0.93-1.08) Sodium 142 (132-148) mmol/L Potassium 3.6 (3.6-5.0) mmol/L Chloride 109 H (98-107) mmol/L Carbon Dioxide 25 (21-33) mmol/L Anion Gap 11 (10-20) BUN 13 (7-21) mg/dL Creatinine 0.6 L (0.7-1.2) mg/dl Est GFR ( Amer) > 60 Est GFR (Non-Af Amer) > 60 Random Glucose 69 L (70-110) mg/dL Calcium 8.2 L (8.4-10.5) mg/dL Total Bilirubin 2.9 H (0.2-1.3) mg/dL AST 77 H D (14-36) U/L ALT 41 (7-56) U/L Alkaline Phosphatase 154 H D (38-126) U/L Ammonia 97 H (9-33) umol/L Total Protein 6.5 (5.8-8.3) g/dL Albumin 2.3 L (3.0-4.8) g/dL Globulin 4.3 gm/dL Albumin/Globulin Ratio 0.5 L (1.1-1.8) 10/28/17 10/27/17 Range/Units 05:30 22:29 WBC 3.4 L (4.5-11.0) 10^3/ul RBC 2.32 L (3.5-6.1) 10^6/uL Hgb 7.9 L D (12.0-16.0) g/dL Hct 24.8 L (36.0-48.0) % MCV 106.9 H (80.0-105.0) fl MCH 34.1 (25.0-35.0) pg MCHC 31.9 (31.0-37.0) g/dl RDW 20.6 H (11.5-14.5) % Plt Count 111 L (120.0-450.0) 10^3/uL MPV 9.1 (7.0-11.0) fl Gran % 31.6 L (50.0-68.0) % Lymph % (Auto) 44.3 H (22.0-35.0) % Cobb % (Auto) 21.1 H (1.0-6.0) % Eos % (Auto) 2.1 (1.5-5.0) % Baso % (Auto) 0.9 (0.0-3.0) % Gran # 1.06 L (1.4-6.5) Lymph # (Auto) 1.5 (1.2-3.4) Cobb # (Auto) 0.7 H (0.1-0.6) Eos # (Auto) 0.1 (0.0-0.7) Baso # (Auto) 0.03 (0.0-2.0) K/mm3 Neutrophils % (Manual) 45 L (50.0-70.0) % Lymphocytes % (Manual) 31 (22.0-35.0) % Monocytes % (Manual) 17 H (1.0-6.0) % Eosinophils % (Manual) 7 H (0.0-3.0) % Nucleated RBC % 1 % Platelet Evaluation Low (NORMAL) Poikilocytosis (manual 1+ Anisocytosis (manual) 1+ Microcytosis (manual) Slight Macrocytosis (manual) 1+ Schistocytes Slight PT 19.1 H (9.4-12.5) SECONDS INR 1.66 H (0.93-1.08) Sodium (132-148) mmol/L Potassium (3.6-5.0) mmol/L Chloride (98-107) mmol/L Carbon Dioxide (21-33) mmol/L Anion Gap (10-20) BUN (7-21) mg/dL Creatinine (0.7-1.2) mg/dl Est GFR ( Amer) Est GFR (Non-Af Amer) Random Glucose (70-110) mg/dL Calcium (8.4-10.5) mg/dL Total Bilirubin (0.2-1.3) mg/dL AST (14-36) U/L ALT (7-56) U/L Alkaline Phosphatase (38-126) U/L Ammonia (9-33) umol/L Total Protein (5.8-8.3) g/dL Albumin (3.0-4.8) g/dL Globulin gm/dL Albumin/Globulin Ratio (1.1-1.8) Laboratory Results - last 24 hr 10/27/17 10/28/17 10/28/17 22:29 05:30 05:30 WBC 3.4 L RBC 2.32 L Hgb 7.9 L D Hct 24.8 L MCV 106.9 H MCH 34.1 MCHC 31.9 RDW 20.6 H Plt Count 111 L MPV 9.1 Gran % 31.6 L Lymph % (Auto) 44.3 H Cobb % (Auto) 21.1 H Eos % (Auto) 2.1 Baso % (Auto) 0.9 Gran # 1.06 L Lymph # (Auto) 1.5 Cobb # (Auto) 0.7 H Eos # (Auto) 0.1 Baso # (Auto) 0.03 Neutrophils % (Manual) 45 L Lymphocytes % (Manual) 31 Monocytes % (Manual) 17 H Eosinophils % (Manual) 7 H Nucleated RBC % 1 Platelet Evaluation Low Poikilocytosis (manual 1+ Anisocytosis (manual) 1+ Microcytosis (manual) Slight Macrocytosis (manual) 1+ Schistocytes Slight PT 19.1 H INR 1.66 H Sodium 142 Potassium 3.6 Chloride 109 H Carbon Dioxide 25 Anion Gap 11 BUN 13 Creatinine 0.6 L Est GFR ( Amer) > 60 Est GFR (Non-Af Amer) > 60 Random Glucose 69 L Calcium 8.2 L Total Bilirubin 2.9 H AST 77 H D ALT 41 Alkaline Phosphatase 154 H D Ammonia Total Protein 6.5 Albumin 2.3 L Globulin 4.3 Albumin/Globulin Ratio 0.5 L 10/28/17 10/28/17 05:30 12:00 WBC RBC Hgb Hct MCV MCH MCHC RDW Plt Count MPV Gran % Lymph % (Auto) Cobb % (Auto) Eos % (Auto) Baso % (Auto) Gran # Lymph # (Auto) Cobb # (Auto) Eos # (Auto) Baso # (Auto) Neutrophils % (Manual) Lymphocytes % (Manual) Monocytes % (Manual) Eosinophils % (Manual) Nucleated RBC % Platelet Evaluation Poikilocytosis (manual Anisocytosis (manual) Microcytosis (manual) Macrocytosis (manual) Schistocytes PT 16.8 H INR 1.45 H Sodium Potassium Chloride Carbon Dioxide Anion Gap BUN Creatinine Est GFR ( Amer) Est GFR (Non-Af Amer) Random Glucose Calcium Total Bilirubin AST ALT Alkaline Phosphatase Ammonia 97 H Total Protein Albumin Globulin Albumin/Globulin Ratio Critical Care Progress Note - Nutrition Nutrition: Nutrition Category Date Time Status Dysphagia/Modified Consistency Diet [DIET] Diets 10/27/17 Lunch Ordered Attending/Attestation - Attestation I have personally seen and examined this patient.: Yes I have fully participated in the care of the patient.: Yes I have reviewed all pertinent clinical information: Yes Notes (Text): 10/28/17 15:10 47 yo female with ICH. Maintian euvolemia, euglycemia, normothermia and 02sat> 90. BPs 140-160. repeat CTH today. DVT/GI prophylaxis ccm time 40 min
[2017-10-27 08:38] LABS: INR 1.89 (0.93-1.08)
[2017-10-27 08:48] LABS: IRON 70 ug/dL (45-180)
[2017-10-27] MEDS ORDERED: Phytonadione 10 MG in Sodium Chloride 0.9% 50 ML IV ONE (08:49)
[2017-10-27 08:52] VITALS: BMI 26.1
[2017-10-27 08:58] LABS: % IRON SATURATION 21 % (20-55); TOTAL IRON BINDING CAPACITY 328 ug/dL (265-497)
[2017-10-27] MEDS ORDERED: Phytonadione 10 mg/ml Inj (Adult) ONE (09:19)
[2017-10-27] MEDS: levETIRAcetam 500mg IVPB 500 MG/100 ML BAG IV SCH ×2 (09:36→23:01)
[2017-10-27] MEDS ORDERED: Lactulose 10 gm/15 ml (Rectal Use) PR SCH ×2 (10:00)
--- NOTE | 2017-10-27 10:03 | RAD ---
HISTORY: ams COMPARISON: Portable chest 06/06/2014. TECHNIQUE: Chest PA and lateral FINDINGS: Is unable to raise her arms for the lateral view limiting that view significantly. LUNGS: No definitive infiltrate is appreciated bilaterally. PLEURA: No significant pleural effusion identified. No pneumothorax apparent. CARDIOVASCULAR: Cardiomegaly is not excluded. No pulmonary vascular derangement appreciable. OSSEOUS STRUCTURES: No significant abnormalities. VISUALIZED UPPER ABDOMEN: Normal. OTHER FINDINGS: None. IMPRESSION: No definitive infiltrate, pleural effusion or pneumothorax bilaterally. Interval cardiomegaly is suggested. Clinically correlate further.
--- NOTE | 2017-10-27 10:33 | US ---
HISTORY: Abdominal pain COMPARISON: None. TECHNIQUE: Grayscale imaging was performed. FINDINGS: LIVER: Measures 12.2 cm. Cirrhotic liver with TIPS in place. No mass. No intrahepatic bile duct dilatation. GALLBLADDER: There are no gallstones, wall thickening or pericholecystic fluid. The sonographic Nunes's sign is negative the COMMON BILE DUCT: Measures 4.5 mm. No stones. No dilatation. PANCREAS: Unremarkable as visualized. No mass. No ductal dilatation. RIGHT KIDNEY: Measures 10.3cm. Normal echogenicity. No calculus, mass, or hydronephrosis. LEFT KIDNEY: Measures 12.1cm. Normal echogenicity. No calculus, mass, or hydronephrosis. There is a 2.8 x 2.4 x 2.0 cm simple in the lower pole. SPLEEN: Normal in size and contour. No mass. AORTA: No aneurysmal dilatation. IVC: Unremarkable. OTHER FINDINGS: None. IMPRESSION: Cirrhosis of liver with TIPS in place. No evidence of significant ascites.
--- NOTE | 2017-10-27 10:35 | CARD ---
APPROVED REPORT EKG Measurement Heart [id number] <Conclusion> Normal sinus rhythm LVH by voltage NSSTW changes Mildly prolonged QTc No change
[2017-10-27 12:08] LABS: FERRITIN 36.6 ng/mL
--- NOTE | 2017-10-27 13:50 | CP.PCM.CON ---
History of Present Illness - History of Present Illness History of Present Illness: Mrs. Cruz is a 47-year-old woman with a past medical history of alcoholic liver cirrhosis, s/p TIPS, currently on liver transplant list, history of hepatic encephalopathy, seizure disorder, SLE, who was found yesterday with left side weakness, and somnolence. She was brought to the ED, and a CT scan of the head showed a right basal ganglia intraparenchymal hemorrage, without midline shift or significant edema. The patient is currently in the ICU and she continues to be somnolent. She is able to converse and follow commands. She admitted to a headache. With repeat stimulation, she became irritable and uncooperative. Review of Systems - Review of Systems Systems not reviewed;Unavailable: Altered Mental Status, Uncooperative All systems: reviewed and no additional remarkable complaints except Past Patient History - Infectious Disease Hx of Infectious Diseases: None - Tetanus Immunizations Tetanus Immunization: Unknown - Past Medical History & Family History Past Medical History?: Yes - Past Social History Smoking Status: Light Smoker < 10 Cigarettes Daily - CARDIAC Hx Cardiac Disorders: Yes Hx Hypertension: Yes - PULMONARY Hx Respiratory Disorders: No - NEUROLOGICAL Hx Neurological Disorder: Yes HX Cerebrovascular Accident: Yes Hx Seizures: Yes - HEENT Hx HEENT Problems: No - RENAL Hx Chronic Kidney Disease: No - ENDOCRINE/METABOLIC Hx Endocrine Disorders: Yes Hx Systemic Lupus Erythematosus: Yes - HEMATOLOGICAL/ONCOLOGICAL Hx Blood Disorders: No - INTEGUMENTARY Hx Dermatological Problems: No - MUSCULOSKELETAL/RHEUMATOLOGICAL Hx Falls: Yes - GASTROINTESTINAL Hx Gastrointestinal Disorders: Yes Hx Liver Failure: Yes (on transplant list) - GENITOURINARY/GYNECOLOGICAL Hx Genitourinary Disorders: No - PSYCHIATRIC Hx Psychophysiologic Disorder: Yes Hx Anxiety: Yes - SURGICAL HISTORY Hx Orthopedic Surgery: Yes - ANESTHESIA Hx Anesthesia: Yes Hx Anesthesia Reactions: No Hx Malignant Hyperthermia: No Meds Allergies/Adverse Reactions: Allergies Allergy/AdvReac Type Severity Reaction Status Date / Time No Known Allergies Allergy Verified 10/27/17 02:47 - Medications Medications: Current Medications Levetiracetam (Keppra 500mg Ivpb) 500 mg in 100 mls @ 460 mls/hr IV Q12 SARKIS Last Admin: 10/27/17 09:36 Dose: 460 mls/hr Lactulose (Enulose) 20 gm PO HS SARKIS Pantoprazole Sodium (Protonix Inj) 40 mg IVP DAILY [facility] Last Admin: 10/27/17 09:36 Dose: 40 mg Rifaximin (Xifaxan) 550 mg PO BID SARKIS PRN Reason: Protocol Physical Exam - Constitutional Appears: Combative, Confused, Chronically Ill - Head Exam Head Exam: ATRAUMATIC, NORMAL INSPECTION, NORMOCEPHALIC - Eye Exam Eye Exam: EOMI, Normal appearance, PERRL, Scleral icterus - ENT Exam ENT Exam: Mucous Membranes Moist, Normal Exam - Neck Exam Neck exam: Positive for: Normal Inspection - Respiratory Exam Respiratory Exam: Clear to Auscultation Bilateral, NORMAL BREATHING PATTERN - Cardiovascular Exam Cardiovascular Exam: REGULAR RHYTHM, +S1, +S2 - GI/Abdominal Exam GI & Abdominal Exam: Normal Bowel Sounds, Soft. absent: Tenderness - Rectal Exam Rectal Exam: Deferred - Extremities Exam Extremities exam: Positive for: normal inspection - Back Exam Back exam: NORMAL INSPECTION - Neurological Exam Neurological exam: Altered, CN II-XII Intact Additional comments: Somnolent, left facial droop, left arm proximal strength is 3/5, distal is 1/5; left leg is 2/5 proximal and distal. Reflexes are brisk on the left C5/6 and L3 /4 with upgoing plantar responses. Right side is normal in strength, sensation and reflexes with downgoing plantar response. NIHSS= 10 - Psychiatric Exam Psychiatric exam: Agitated - Skin Skin Exam: Dry, Intact, Normal Color, Warm Results - Vital Signs Recent Vital Signs: Last Vital Signs Temp 98.4 F 10/27/17 12:45 Pulse 76 10/27/17 13:00 Resp 23 10/27/17 13:00 BP 124/68 10/27/17 12:59 Pulse Ox 100 10/27/17 13:00 - Labs Result Diagrams: 10/27/17 03:45 10/27/17 03:45 Labs: Laboratory Results - last 24 hr 10/27/17 10/27/17 10/27/17 06:15 06:15 08:00 PT 22.0 H INR 1.89 H Iron TIBC % Saturation Ferritin Vitamin B12 Urine Color Yellow Urine Appearance Clear Urine pH 7.0 Ur Specific [place] 1.015 Urine Protein Trace H Urine Glucose (UA) Negative Urine Ketones Negative Urine Blood Small H Urine Nitrate Negative Urine Bilirubin Small H Urine Urobilinogen 1.0 H Ur Leukocyte Esterase Trace H Urine RBC 2 - 5 Urine WBC 1 - 3 Ur Epithelial Cells 3 - 4 Amorphous Sediment Few Urine Bacteria Many Urine Opiates Screen Negative Urine Methadone Screen Negative Ur Barbiturates Screen Negative Ur Phencyclidine Scrn Negative Ur Amphetamines Screen Negative U Benzodiazepines Scrn Negative U Oth Cocaine Metabols Negative U Cannabinoids Screen Negative 10/27/17 10/27/17 08:41 08:41 PT INR Iron 70 TIBC 328 % Saturation 21 Ferritin 36.6 Vitamin B12 993 H Urine Color Urine Appearance Urine pH Ur Specific [place] Urine Protein Urine Glucose (UA) Urine Ketones Urine Blood Urine Nitrate Urine Bilirubin Urine Urobilinogen Ur Leukocyte Esterase Urine RBC Urine WBC Ur Epithelial Cells Amorphous Sediment Urine Bacteria Urine Opiates Screen Urine Methadone Screen Ur Barbiturates Screen Ur Phencyclidine Scrn Ur Amphetamines Screen U Benzodiazepines Scrn U Oth Cocaine Metabols U Cannabinoids Screen Assessment & Plan (1) Intracerebral hemorrhage Assessment and Plan: Likely secondary to hypertension, based on location and liver disease with coagulopathy. I recommend the followin. Keep head of bed at 45 degrees 2. Maintain SBP between 100 and 150 mm Hg 3. Control serum glucose to maintain euglycemia and avoid dextrose containing fluids 4. Avoid hyperthermia 5. Treat hepatic encephalopathy 6. Repeat CT head in 12 hours, or STAT if the patient's mental status declines or there are new focal neurological deficits 7. Q 1 hour neuro-checks 8. SCD for DVT Px 9. Case management consult 10. Continue current management per the ICU team Thank you for this consultation. Status: Acute
[2017-10-27] MEDS: Sodium Chloride 0.9% 1,000 ML IV SCH (15:00)
--- NOTE | 2017-10-27 18:23 | CT ---
PROCEDURE: CT HEAD WITHOUT CONTRAST. HISTORY: f/u CVA COMPARISON: October 27, 2017. Study completed 03:30 TECHNIQUE: Axial computed tomography images were obtained through the head/brain without intravenous contrast. Coronal and sagittal reconstructed images. Radiation dose: Total exam DLP = 890.27 mGy-cm. This CT exam was performed using one or more of the following dose reduction techniques: Automated exposure control, adjustment of the mA and/or kV according to patient size, and/or use of iterative reconstruction technique. FINDINGS: HEMORRHAGE: Acute parenchymal hemorrhage right basal ganglia. No significant interval change. The overall location and appearance suggests hypertensive etiology. BRAIN: No mass effect or edema. No atrophy or chronic microvascular ischemic changes. VENTRICLES: Mild effacement of the anterior horn of the right lateral ventricle from the hemorrhagic process. No midline shift identified. CALVARIUM: Unremarkable. PARANASAL SINUSES: Unremarkable as visualized. No significant inflammatory changes. MASTOID AIR CELLS: Unremarkable as visualized. No inflammatory changes. OTHER FINDINGS: None. IMPRESSION: Stable acute right basal ganglia hemorrhage. No new additional, suspicious abnormalities.
--- NOTE | 2017-10-27 18:49 | CON ---
DATE: HISTORY OF PRESENT ILLNESS: A 47-year-old woman admitted last night with acute change in mental status, left hemiparesis. CT of the head shows moderate size right basal ganglia hemorrhage with minimal blood in the ventricles. No hydrocephalus. History of cirrhosis due to alcohol, history of hepatic encephalopathy, seizures. She was arousable in the emergency room, and there was no voluntary motion of the left upper or lower extremity; she was moving her right side well. Her medical record has been reviewed as well as the lab reports. Her PT was 20.5 on admission, elevated at 8:00 a.m. to 22. Her INR was 1.76, elevated to 1.89 at 8:00 a.m. PHYSICAL EXAMINATION: GENERAL: Currently she is awake, alert, following commands, talking appropriately. NEUROLOGIC: Pupils are equal. EOMs appear full. She has a minimal motion voluntarily of the left upper extremity. No motion in the left lower extremity. Excellent strength on the right side. Sensory exam appears intact throughout. Reflexes are 2/4 bilaterally, left toe up. ASSESSMENT AND PLAN: At this point, this is not a surgical case for intervention as deep hemorrhage is best treated medically. It is important that her INR be addressed as continued coagulopathy can cause the hemorrhage to increase, and without normalizing the INR, it would be impossible to perform any type of intervention if necessary. At this point, there is no intervention report, and if in fact there are any changes in her mental status, please contact us again. Moreno Mccall MD
[2017-10-27 22:42] LABS: INR 1.66 (0.93-1.08); PROTHROMBIN TIME 19.1 SECONDS (9.4-12.5)
[2017-10-28 07:07] LABS: BASO # 0.03 K/mm3 (0.0-2.0); BASO % 0.9 % (0.0-3.0); EOS # 0.1 (0.0-0.7); EOS % 2.1 % (1.5-5.0); GRAN # 1.06 (1.4-6.5); GRAN % 31.6 % (50.0-68.0); LYMPH # 1.5 (1.2-3.4); LYMPH % 44.3 % (22.0-35.0); MEAN CELL VOLUME 106.9 fl (80.0-105.0); MEAN CORPUSCULAR HEMOGLOBIN 34.1 pg (25.0-35.0); MEAN CORPUSCULAR HGB CONC 31.9 g/dl (31.0-37.0); MEAN PLATELET VOLUME 9.1 fl (7.0-11.0); MONO # 0.7 (0.1-0.6); MONO % 21.1 % (1.0-6.0); PLATELET COUNT 111 10^3/uL (120.0-450.0); RBC 2.32 10^6/uL (3.5-6.1); RED CELL DISTRIBUTION WIDTH 20.6 % (11.5-14.5); WHITE BLOOD COUNT 3.4 10^3/ul (4.5-11.0)
[2017-10-28] MEDS ORDERED: Morphine 2 mg/ml ISec IVP ONE ×2 (07:07→10:15)
[2017-10-28 07:16] LABS: INR 1.45 (0.93-1.08); PROTHROMBIN TIME 16.8 SECONDS (9.4-12.5)
[2017-10-28 07:23] LABS: HEMOGLOBIN 7.9 g/dL (12.0-16.0)
--- NOTE | 2017-10-28 07:27 | CP.CCUPN ---
<OraliaoscarMehreen flores - Last Filed: 10/28/17 12:02> CCU Subjective - Physician Review Subjective (Free Text): 10/28/17 08:15 Patient complained of headache overnight. Denies cp, sob, nausea or vomiting. Able to move the left upper extremity more. Somnolent but arousable. Critical Care Time Spent (in minutes): 45 CCU Objective - Vital Signs / Intake & Output Vital Signs (Last 4 hours): Vital Signs Pulse 10/28/17 06:00 98 H Intake and Output (Last 8hrs): Intake & Output 10/27/17 10/28/17 10/28/17 22:59 06:59 14:59 Intake Total 1220 Output Total 400 Balance 820 Intake: IV 500 Left Hand 500 Oral 120 Blood Product 600 Output: Urine 400 Urine, Voided 400 Stool 0 Other: # Voids Urine, Voided 3 - Physical Exam Head: Positive for: Atraumatic, Normocephalic Pupils: Positive for: PERRL Extroacular Muscles: Positive for: EOMI Conjunctiva: Positive for: Icteric Ears: Positive for: Normal Mouth: Positive for: Moist Mucous Membranes Pharnyx: Positive for: Normal Nose (Internal): Positive for: Normal Inspection Neck: Positive for: Normal Range of Motion. Negative for: Meningeal Signs, MIDLINE TENDERNESS, Paraspinal Tenderness Respiratory/Chest: Positive for: Clear to Auscultation, Good Air Exchange, Other (on NC 2L). Negative for: Respiratory Distress, Accessory Muscle Use, Wheezes, Rales, Rhonchi Cardiovascular: Positive for: Regular Rate and Rhythm, Normal S1, S2. Negative for: Murmurs Abdomen: Positive for: Normal Bowel Sounds, Mass/Organomegaly (hepatomegaly). Negative for: Tenderness, Distention, Peritoneal Signs Back: Negative for: CVA Tenderness, Midline Tenderness, Paraspinal Tenderness Upper Extremity: Positive for: NORMAL PULSES, Neurovascularly Intact, Capillary Refill < 2s, Other (Weakness in bilateral upper extremities). Negative for: Cyanosis, Edema, Tenderness, Swelling, Erythema, Deformity Lower Extremity: Positive for: Other (Weakness in bilateral lower extremities). Negative for: Edema, CALF TENDERNESS, Cyanosis Neurological: Positive for: GCS=15, CN II-XII Intact, Other (Weakness left upper and lower extremities. ) Skin: Positive for: Warm, Dry. Negative for: Rashes, Normal Color Psychiatric: Positive for: Oriented x 3 (but somnolent) - Medications Active Medications: Active Medications Generic Name Dose Route Start Last Admin Trade Name Wayne PRN Reason Stop Dose Admin Levetiracetam 500 mg in 100 mls @ 460 mls/hr 10/27/17 10:00 10/27/17 23:01 Keppra 500mg Ivpb IV 460 mls/hr Q12 SARKIS Administration Sodium Chloride 1,000 mls @ 100 mls/hr 10/27/17 17:30 10/27/17 15:00 Sodium Chloride 0.9% IV 100 mls/hr .Q10H SARKIS Administration Lactulose 20 gm 10/27/17 22:00 10/27/17 23:09 Enulose PO 20 gm HS SARKIS Administration Pantoprazole Sodium 40 mg 10/27/17 10:00 10/27/17 09:36 Protonix Inj IVP 40 mg DAILY SARKIS Administration Rifaximin 550 mg 10/27/17 12:00 10/27/17 18:46 Xifaxan PO 550 mg BID SARKIS Administration Protocol - Patient Studies Lab Studies: Lab Studies 10/28/17 10/28/17 10/27/17 Range/Units 05:30 05:30 22:29 WBC 3.4 L (4.5-11.0) 10^3/ul RBC 2.32 L (3.5-6.1) 10^6/uL Hgb 7.9 L D (12.0-16.0) g/dL Hct 24.8 L (36.0-48.0) % MCV 106.9 H (80.0-105.0) fl MCH 34.1 (25.0-35.0) pg MCHC 31.9 (31.0-37.0) g/dl RDW 20.6 H (11.5-14.5) % Plt Count 111 L (120.0-450.0) 10^3/uL MPV 9.1 (7.0-11.0) fl Gran % 31.6 L (50.0-68.0) % Lymph % (Auto) 44.3 H (22.0-35.0) % [place] % (Auto) 21.1 H (1.0-6.0) % Eos % (Auto) 2.1 (1.5-5.0) % Baso % (Auto) 0.9 (0.0-3.0) % Gran # 1.06 L (1.4-6.5) Lymph # (Auto) 1.5 (1.2-3.4) [place] # (Auto) 0.7 H (0.1-0.6) Eos # (Auto) 0.1 (0.0-0.7) Baso # (Auto) 0.03 (0.0-2.0) K/mm3 PT 16.8 H 19.1 H (9.4-12.5) SECONDS INR 1.45 H 1.66 H (0.93-1.08) Iron (45-180) ug/dL TIBC (265-497) ug/dL % Saturation (20-55) % Ferritin ng/mL Vitamin B12 (239-931) pg/mL Urine Color (YELLOW) Urine Appearance (CLEAR) Urine pH (4.7-8.0) Ur Specific [place] (1.005-1.035) Urine Protein (<30 mg/dL) mg/dL Urine Glucose (UA) (NEGATIVE) mg/dL Urine Ketones (NEGATIVE) mg/dL Urine Blood (NEGATIVE) Urine Nitrate (NEGATIVE) Urine Bilirubin (NEGATIVE) Urine Urobilinogen (<1 E.U./dL) E.U./dL Ur Leukocyte Esterase (NEGATIVE) Simran/uL Urine RBC (0-2) /hpf Urine WBC (0-6) /hpf Ur Epithelial Cells (0-5) /hpf Amorphous Sediment Urine Bacteria (NEG) 10/27/17 10/27/17 10/27/17 Range/Units 08:41 08:41 08:00 WBC (4.5-11.0) 10^3/ul RBC (3.5-6.1) 10^6/uL Hgb (12.0-16.0) g/dL Hct (36.0-48.0) % MCV (80.0-105.0) fl MCH (25.0-35.0) pg MCHC (31.0-37.0) g/dl RDW (11.5-14.5) % Plt Count (120.0-450.0) 10^3/uL MPV (7.0-11.0) fl Gran % (50.0-68.0) % Lymph % (Auto) (22.0-35.0) % [place] % (Auto) (1.0-6.0) % Eos % (Auto) (1.5-5.0) % Baso % (Auto) (0.0-3.0) % Gran # (1.4-6.5) Lymph # (Auto) (1.2-3.4) [place] # (Auto) (0.1-0.6) Eos # (Auto) (0.0-0.7) Baso # (Auto) (0.0-2.0) K/mm3 PT 22.0 H (9.4-12.5) SECONDS INR 1.89 H (0.93-1.08) Iron 70 (45-180) ug/dL TIBC 328 (265-497) ug/dL % Saturation 21 (20-55) % Ferritin 36.6 ng/mL Vitamin B12 993 H (239-931) pg/mL Urine Color (YELLOW) Urine Appearance (CLEAR) Urine pH (4.7-8.0) Ur Specific [place] (1.005-1.035) Urine Protein (<30 mg/dL) mg/dL Urine Glucose (UA) (NEGATIVE) mg/dL Urine Ketones (NEGATIVE) mg/dL Urine Blood (NEGATIVE) Urine Nitrate (NEGATIVE) Urine Bilirubin (NEGATIVE) Urine Urobilinogen (<1 E.U./dL) E.U./dL Ur Leukocyte Esterase (NEGATIVE) Simran/uL Urine RBC (0-2) /hpf Urine WBC (0-6) /hpf Ur Epithelial Cells (0-5) /hpf Amorphous Sediment Urine Bacteria (NEG) 10/27/17 Range/Units 06:15 WBC (4.5-11.0) 10^3/ul RBC (3.5-6.1) 10^6/uL Hgb (12.0-16.0) g/dL Hct (36.0-48.0) % MCV (80.0-105.0) fl MCH (25.0-35.0) pg MCHC (31.0-37.0) g/dl RDW (11.5-14.5) % Plt Count (120.0-450.0) 10^3/uL MPV (7.0-11.0) fl Gran % (50.0-68.0) % Lymph % (Auto) (22.0-35.0) % [place] % (Auto) (1.0-6.0) % Eos % (Auto) (1.5-5.0) % Baso % (Auto) (0.0-3.0) % Gran # (1.4-6.5) Lymph # (Auto) (1.2-3.4) [place] # (Auto) (0.1-0.6) Eos # (Auto) (0.0-0.7) Baso # (Auto) (0.0-2.0) K/mm3 PT (9.4-12.5) SECONDS INR (0.93-1.08) Iron (45-180) ug/dL TIBC (265-497) ug/dL % Saturation (20-55) % Ferritin ng/mL Vitamin B12 (239-931) pg/mL Urine Color Yellow (YELLOW) Urine Appearance Clear (CLEAR) Urine pH 7.0 (4.7-8.0) Ur Specific [place] 1.015 (1.005-1.035) Urine Protein Trace H (<30 mg/dL) mg/dL Urine Glucose (UA) Negative (NEGATIVE) mg/dL Urine Ketones Negative (NEGATIVE) mg/dL Urine Blood Small H (NEGATIVE) Urine Nitrate Negative (NEGATIVE) Urine Bilirubin Small H (NEGATIVE) Urine Urobilinogen 1.0 H (<1 E.U./dL) E.U./dL Ur Leukocyte Esterase Trace H (NEGATIVE) Simran/uL Urine RBC 2 - 5 (0-2) /hpf Urine WBC 1 - 3 (0-6) /hpf Ur Epithelial Cells 3 - 4 (0-5) /hpf Amorphous Sediment Few Urine Bacteria Many (NEG) Laboratory Results - last 24 hr 10/27/17 10/27/17 10/27/17 06:15 08:00 08:41 WBC RBC Hgb Hct MCV MCH MCHC RDW Plt Count MPV Gran % Lymph % (Auto) [place] % (Auto) Eos % (Auto) Baso % (Auto) Gran # Lymph # (Auto) [place] # (Auto) Eos # (Auto) Baso # (Auto) PT 22.0 H INR 1.89 H Iron TIBC % Saturation Ferritin 36.6 Vitamin B12 993 H Urine Color Yellow Urine Appearance Clear Urine pH 7.0 Ur Specific [place] 1.015 Urine Protein Trace H Urine Glucose (UA) Negative Urine Ketones Negative Urine Blood Small H Urine Nitrate Negative Urine Bilirubin Small H Urine Urobilinogen 1.0 H Ur Leukocyte Esterase Trace H Urine RBC 2 - 5 Urine WBC 1 - 3 Ur Epithelial Cells 3 - 4 Amorphous Sediment Few Urine Bacteria Many 10/27/17 10/27/17 10/28/17 08:41 22:29 05:30 WBC 3.4 L RBC 2.32 L Hgb 7.9 L D Hct 24.8 L MCV 106.9 H MCH 34.1 MCHC 31.9 RDW 20.6 H Plt Count 111 L MPV 9.1 Gran % 31.6 L Lymph % (Auto) 44.3 H [place] % (Auto) 21.1 H Eos % (Auto) 2.1 Baso % (Auto) 0.9 Gran # 1.06 L Lymph # (Auto) 1.5 [place] # (Auto) 0.7 H Eos # (Auto) 0.1 Baso # (Auto) 0.03 PT 19.1 H INR 1.66 H Iron 70 TIBC 328 % Saturation 21 Ferritin Vitamin B12 Urine Color Urine Appearance Urine pH Ur Specific [place] Urine Protein Urine Glucose (UA) Urine Ketones Urine Blood Urine Nitrate Urine Bilirubin Urine Urobilinogen Ur Leukocyte Esterase Urine RBC Urine WBC Ur Epithelial Cells Amorphous Sediment Urine Bacteria 10/28/17 05:30 WBC RBC Hgb Hct MCV MCH MCHC RDW Plt Count MPV Gran % Lymph % (Auto) [place] % (Auto) Eos % (Auto) Baso % (Auto) Gran # Lymph # (Auto) [place] # (Auto) Eos # (Auto) Baso # (Auto) PT 16.8 H INR 1.45 H Iron TIBC % Saturation Ferritin Vitamin B12 Urine Color Urine Appearance Urine pH Ur Specific [place] Urine Protein Urine Glucose (UA) Urine Ketones Urine Blood Urine Nitrate Urine Bilirubin Urine Urobilinogen Ur Leukocyte Esterase Urine RBC Urine WBC Ur Epithelial Cells Amorphous Sediment Urine Bacteria Fingerstick Blood Sugar Results: 81 Critical Care Progress Note - Ventilator Checklist Head of Bed 30 Degrees: Yes - Prophylaxis GI Prophylaxis GI: PPI - Prophylaxis DVT Prophylaxis DVT: SCDs - Nutrition Nutrition: Nutrition Category Date Time Status Dysphagia/Modified Consistency Diet [DIET] Diets 10/27/17 Lunch Ordered Assessment/Plan - Assessment and Plan (Free Text) Assessment: 47 Y/O with history of decompensated liver cirrhosis and seizures due to etoh admitted with right basal ganglia hemorrhage. Plan: Neurology - Cerebral hemorrhage - Right basal ganglia hemorrhage likely due to coagulopathy induced by cirrhotic liver, sle INR 1.45, s/p 2 unit ffp and vit k yesterday No surgical intervention as per neurosurgeon Neurology following, recommending magnesium oxide 400 mg q12 for headache. Neuro checks/seizure precaution Head of bed elevation above 45 degrees passed swallow eval Continue PT/OT Continue to monitor BP - h/o seizure disorder- continue keppra - h/o hepatic encephalopathy - ammonia is elevated, continue rectal lactulose to titrate bowel movement to 2-3x per day. Cardio- stable, BP management as above Pulm: stable, supplemental ogygen prn ID: No sepsis at this time, will monitor GI- decompensated liver cirrhosis with elevated T bili compared to previous ( from 2 years ago), no signs of ascites on exam Meld score 17 on admission U/S with liver cirrhosis and tips, no ascites. on xifaxan and lactulose on ppi for gi prophyalxis. Endo- will maintain glucose between 80-110 Renal- stable, will continue to monitor Heme- chronic leukopenia likely due to lupus drug, will monitor for now Chronic anemia- h/h stable, will continue to monitor Lupus drug on hold DVT prophylaxis: scds Patient seen, examined and case discussed with Dr Arita. - Date & Time Date: 10/28/17 Time: 09:25 <Martinez Arita - Last Filed: 10/28/17 16:52> CCU Objective - Vital Signs / Intake & Output Vital Signs (Last 4 hours): Vital Signs Pulse Resp BP Pulse Ox 10/28/17 15:10 89 13 100 10/28/17 15:00 88 14 98 10/28/17 14:50 84 13 99 10/28/17 14:40 89 13 99 10/28/17 14:39 88 12 128/61 96 10/28/17 14:30 96 H 14 90 L 10/28/17 14:20 95 H 21 90 L 10/28/17 14:10 95 H 12 90 L 10/28/17 14:00 92 H 18 94 L 10/28/17 13:50 88 14 100 02/16/18 13:40 86 12 100 10/28/17 13:39 89 13 139/70 100 10/28/17 13:38 85 10/28/17 13:32 82 12 134/53 L 100 10/28/17 13:31 83 12 135/61 99 10/28/17 13:30 86 13 133/60 97 10/28/17 13:29 85 12 135/70 99 10/28/17 13:28 86 13 136/74 98 10/28/17 13:20 85 12 100 10/28/17 13:10 84 13 100 10/28/17 13:00 89 14 99 Intake and Output (Last 8hrs): Intake & Output 10/28/17 10/28/17 10/28/17 06:59 14:59 22:59 Intake Total 1514 Output Total 125 Balance 1389 Intake: IV 900 Left Hand 900 Oral 80 Blood Product 534 Output: Urine 125 Urine, Voided 125 Other: # Bowel Movements 0 - Medications Active Medications: Active Medications Generic Name Dose Route Start Last Admin Trade Name Freq PRN Reason Stop Dose Admin Albuterol/Ipratropium 3 ml 10/28/17 12:45 Duoneb 3 Mg/0.5 Mg (3 Ml) Ud IH [id number] PRN Shortness of Breath Folic Acid 1 mg 10/29/17 10:00 Folic Acid PO DAILY SARKIS Sodium Chloride 1,000 mls @ 100 mls/hr 10/27/17 17:30 10/28/17 12:19 Sodium Chloride 0.9% IV 100 mls/hr .Q10H SARKIS Administration Lactulose 20 gm 10/28/17 13:15 10/28/17 14:44 Enulose PO 20 gm Q6H SARKIS Administration Multivitamins/Minerals 1 tab 10/29/17 08:00 Therapeutic-M Tab PO 0800 SARKIS Pantoprazole Sodium 40 mg 10/29/17 10:00 Protonix Ec Tab PO DAILY SARKIS Rifaximin 550 mg 10/27/17 12:00 10/28/17 10:11 Xifaxan PO 550 mg BID SARKIS Administration Protocol - Patient Studies Lab Studies: Microbiology Studies 10/27/17 06:15 Urine Culture - Final Urine,Clean Catch 10-50,000 CFU/ML. MULTIPLE SPECIES. PROBABLE CONTAMINATION. Lab Studies 10/28/17 10/28/17 10/28/17 Range/Units 12:00 05:30 05:30 WBC (4.5-11.0) 10^3/ul RBC (3.5-6.1) 10^6/uL Hgb (12.0-16.0) g/dL Hct (36.0-48.0) % MCV (80.0-105.0) fl MCH (25.0-35.0) pg MCHC (31.0-37.0) g/dl RDW (11.5-14.5) % Plt Count (120.0-450.0) 10^3/uL MPV (7.0-11.0) fl Gran % (50.0-68.0) % Lymph % (Auto) (22.0-35.0) % [place] % (Auto) (1.0-6.0) % Eos % (Auto) (1.5-5.0) % Baso % (Auto) (0.0-3.0) % Gran # (1.4-6.5) Lymph # (Auto) (1.2-3.4) [place] # (Auto) (0.1-0.6) Eos # (Auto) (0.0-0.7) Baso # (Auto) (0.0-2.0) K/mm3 Neutrophils % (Manual) (50.0-70.0) % Lymphocytes % (Manual) (22.0-35.0) % Monocytes % (Manual) (1.0-6.0) % Eosinophils % (Manual) (0.0-3.0) % Nucleated RBC % % Platelet Evaluation (NORMAL) Poikilocytosis (manual Anisocytosis (manual) Microcytosis (manual) Macrocytosis (manual) Schistocytes PT 16.8 H (9.4-12.5) SECONDS INR 1.45 H (0.93-1.08) Sodium 142 (132-148) mmol/L Potassium 3.6 (3.6-5.0) mmol/L Chloride 109 H (98-107) mmol/L Carbon Dioxide 25 (21-33) mmol/L Anion Gap 11 (10-20) BUN 13 (7-21) mg/dL Creatinine 0.6 L (0.7-1.2) mg/dl Est GFR ( Amer) > 60 Est GFR (Non-Af Amer) > 60 Random Glucose 69 L (70-110) mg/dL Calcium 8.2 L (8.4-10.5) mg/dL Total Bilirubin 2.9 H (0.2-1.3) mg/dL AST 77 H D (14-36) U/L ALT 41 (7-56) U/L Alkaline Phosphatase 154 H D (38-126) U/L Ammonia 97 H (9-33) umol/L Total Protein 6.5 (5.8-8.3) g/dL Albumin 2.3 L (3.0-4.8) g/dL Globulin 4.3 gm/dL Albumin/Globulin Ratio 0.5 L (1.1-1.8) 10/28/17 10/27/17 Range/Units 05:30 22:29 WBC 3.4 L (4.5-11.0) 10^3/ul RBC 2.32 L (3.5-6.1) 10^6/uL Hgb 7.9 L D (12.0-16.0) g/dL Hct 24.8 L (36.0-48.0) % MCV 106.9 H (80.0-105.0) fl MCH 34.1 (25.0-35.0) pg MCHC 31.9 (31.0-37.0) g/dl RDW 20.6 H (11.5-14.5) % Plt Count 111 L (120.0-450.0) 10^3/uL MPV 9.1 (7.0-11.0) fl Gran % 31.6 L (50.0-68.0) % Lymph % (Auto) 44.3 H (22.0-35.0) % [place] % (Auto) 21.1 H (1.0-6.0) % Eos % (Auto) 2.1 (1.5-5.0) % Baso % (Auto) 0.9 (0.0-3.0) % Gran # 1.06 L (1.4-6.5) Lymph # (Auto) 1.5 (1.2-3.4) [place] # (Auto) 0.7 H (0.1-0.6) Eos # (Auto) 0.1 (0.0-0.7) Baso # (Auto) 0.03 (0.0-2.0) K/mm3 Neutrophils % (Manual) 45 L (50.0-70.0) % Lymphocytes % (Manual) 31 (22.0-35.0) % Monocytes % (Manual) 17 H (1.0-6.0) % Eosinophils % (Manual) 7 H (0.0-3.0) % Nucleated RBC % 1 % Platelet Evaluation Low (NORMAL) Poikilocytosis (manual 1+ Anisocytosis (manual) 1+ Microcytosis (manual) Slight Macrocytosis (manual) 1+ Schistocytes Slight PT 19.1 H (9.4-12.5) SECONDS INR 1.66 H (0.93-1.08) Sodium (132-148) mmol/L Potassium (3.6-5.0) mmol/L Chloride (98-107) mmol/L Carbon Dioxide (21-33) mmol/L Anion Gap (10-20) BUN (7-21) mg/dL Creatinine (0.7-1.2) mg/dl Est GFR ( Amer) Est GFR (Non-Af Amer) Random Glucose (70-110) mg/dL Calcium (8.4-10.5) mg/dL Total Bilirubin (0.2-1.3) mg/dL AST (14-36) U/L ALT (7-56) U/L Alkaline Phosphatase (38-126) U/L Ammonia (9-33) umol/L Total Protein (5.8-8.3) g/dL Albumin (3.0-4.8) g/dL Globulin gm/dL Albumin/Globulin Ratio (1.1-1.8) Laboratory Results - last 24 hr 10/27/17 10/28/17 10/28/17 22:29 05:30 05:30 WBC 3.4 L RBC 2.32 L Hgb 7.9 L D Hct 24.8 L MCV 106.9 H MCH 34.1 MCHC 31.9 RDW 20.6 H Plt Count 111 L MPV 9.1 Gran % 31.6 L Lymph % (Auto) 44.3 H [place] % (Auto) 21.1 H Eos % (Auto) 2.1 Baso % (Auto) 0.9 Gran # 1.06 L Lymph # (Auto) 1.5 [place] # (Auto) 0.7 H Eos # (Auto) 0.1 Baso # (Auto) 0.03 Neutrophils % (Manual) 45 L Lymphocytes % (Manual) 31 Monocytes % (Manual) 17 H Eosinophils % (Manual) 7 H Nucleated RBC % 1 Platelet Evaluation Low Poikilocytosis (manual 1+ Anisocytosis (manual) 1+ Microcytosis (manual) Slight Macrocytosis (manual) 1+ Schistocytes Slight PT 19.1 H INR 1.66 H Sodium 142 Potassium 3.6 Chloride 109 H Carbon Dioxide 25 Anion Gap 11 BUN 13 Creatinine 0.6 L Est GFR ( Amer) > 60 Est GFR (Non-Af Amer) > 60 Random Glucose 69 L Calcium 8.2 L Total Bilirubin 2.9 H AST 77 H D ALT 41 Alkaline Phosphatase 154 H D Ammonia Total Protein 6.5 Albumin 2.3 L Globulin 4.3 Albumin/Globulin Ratio 0.5 L 10/28/17 10/28/17 05:30 12:00 WBC RBC Hgb Hct MCV MCH MCHC RDW Plt Count MPV Gran % Lymph % (Auto) [place] % (Auto) Eos % (Auto) Baso % (Auto) Gran # Lymph # (Auto) [place] # (Auto) Eos # (Auto) Baso # (Auto) Neutrophils % (Manual) Lymphocytes % (Manual) Monocytes % (Manual) Eosinophils % (Manual) Nucleated RBC % Platelet Evaluation Poikilocytosis (manual Anisocytosis (manual) Microcytosis (manual) Macrocytosis (manual) Schistocytes PT 16.8 H INR 1.45 H Sodium Potassium Chloride Carbon Dioxide Anion Gap BUN Creatinine Est GFR ( Amer) Est GFR (Non-Af Amer) Random Glucose Calcium Total Bilirubin AST ALT Alkaline Phosphatase Ammonia 97 H Total Protein Albumin Globulin Albumin/Globulin Ratio Critical Care Progress Note - Nutrition Nutrition: Nutrition Category Date Time Status Dysphagia/Modified Consistency Diet [DIET] Diets 10/27/17 Lunch Ordered Attending/Attestation - Attestation I have personally seen and examined this patient.: Yes I have fully participated in the care of the patient.: Yes I have reviewed all pertinent clinical information: Yes Notes (Text): 10/28/17 16:50 47 yo female with end stage liver disease presented with intrathalamic bleed, stable: no hematoma expansion on CTH, BP stable, passed swallow eval. Maintain euvolemia, euglycemia, normothermia and 02sat>90%. Discussed with Dr. Bradley--> ok to downgrade to [facility] ccm time 40 min
[2017-10-28 07:40] LABS: ALB/GLOB RATIO 0.5 (1.1-1.8); ALBUMIN 2.3 g/dL (3.0-4.8); ALT/SGPT 41 U/L (7-56); AST/SGOT 77 U/L (14-36); BLOOD UREA NITROGEN 13 mg/dL (7-21); CALCIUM 8.2 mg/dL (8.4-10.5); GFR AFRICAN-AMERICAN > 60; GFR NON-AFRICAN AMERICAN > 60
[2017-10-28 08:31] LABS: EOSINOPHIL 7 % (0.0-3.0); LYMPHOCYTE 31 % (22.0-35.0); MONOCYTE 17 % (1.0-6.0); NEUTROPHIL 45 % (50.0-70.0); NUCLEATED RED BLOOD CELL 1 %
[2017-10-28 08:33] LABS: ANISOCYTOSIS 1+; MICROCYTOSIS SLIGHT; POIKILOCYTOSIS 1+
[2017-10-28 08:34] LABS: PLATELET ESTIMATE LOW (NORMAL); SCHISTOCYTES SLIGHT
--- NOTE | 2017-10-28 08:36 | CON ---
DATE: 10/27/2017 HISTORY OF PRESENT ILLNESS: The patient is seen and examined at the bedside. This is a 47-year-old lady with history of hypertension, decompensated liver cirrhosis due to alcohol abuse, status post TIPS, history of hepatic encephalopathy, seizure disorder, lupus, on liver transplant placement at [facility], who was brought in by her daughter due to altered mental status. Reportedly, the patient was seen by her family at 04:30 p.m. last evening. At 01:30 a.m., the patient was found to be slumped on the sofa and was not responding. Even though, the patient was able to arouse, she could not talk and the patient was brought into [facility] ER for further management and evaluation. No fever, no chills, no sweats. No nausea, no vomiting, no diarrhea, no constipation. CAT scan in emergency room revealed right basal ganglia hemorrhage. PAST MEDICAL HISTORY: Decompensated liver cirrhosis due to alcohol abuse, TIPS, history of hepatic encephalopathy, seizure disorder, and lupus. PAST SURGICAL HISTORY: TIPS and left knee replacement. FAMILY HISTORY: Noncontributory. SOCIAL HISTORY: The patient is a former heavy drinker, however, been sober for 6 years. Also, history of prior tobacco abuse. No illicit drug abuse. The patient lives with her kids and boyfriend. HOME MEDICATIONS: Folic acid, isoniazid, hydroxychloroquine, Lasix, Atarax, spironolactone, vitamin D and calcium, Keppra, and rifaximin. REVIEW OF SYSTEMS: Review of 12-organ system other than mentioned in history of present illness is negative. PHYSICAL EXAMINATION: VITAL SIGNS: Heart rate 69, blood pressure 120/68, respiratory rate 17, oxygen saturation 100% on room air, and temperature 98.3. HEENT: Head and neck atraumatic. LUNGS: Clear auscultation bilaterally. HEART: Regular rate and rhythm. S1, S2 normal. ABDOMEN: Soft, nontender, nondistended. MUSCULOSKELETAL: No C/C/E. NEUROLOGIC: The patient is able to smile without any facial asymmetry. She is able to stick out her tongue without any deviation. She is able to raise up her eyebrows without asymmetry. The patient is able to shrug her shoulders with some weakness on the left side. There is dense paresis on the left upper extremity. The patient cannot move up her upper extremity on the left side against gravity. However, she is able to move her toes and leg on the left side. Right side appears to have preserved motor strength, 5/5 upper and lower extremities. SKIN: Moist. PSYCHIATRIC: The patient is alert, awake, and oriented x3. LABORATORY DATA: Sodium 141, potassium 4.1, chloride 108, carbon dioxide 26, BUN 12, creatinine 0.6, glucose 81. AST 111, ALT 56, total bilirubin 3.3, ammonia level 45, lactate dehydrogenase 1174. Total CPK 141. WBC 2.9, hemoglobin 9.9, platelet count 118. INR 1.89. Urine is negative for nitrites, however, positive for traces of leukocyte esterase. Urine tox screen is negative for opiates, barbiturates, methadone, PCP, amphetamine, benzodiazepines, cocaine, and cannabinoids. Alcohol and acetaminophen level less than 10. CAT scan of the head showed intraparenchymal hemorrhage, likely hypertensive, no hydrocephalus, 4.7 x 1.4 x 2.7 cm hemorrhage within right basal ganglia, mild surrounding edema, grossly preserved moreira and white matter differentiation. Chest x-ray, no active pulmonary disease. ASSESSMENT AND PLAN: This is a 47-year-old lady who presented with right basal ganglia hemorrhage with left upper extremity paresis. At present time, we will maintain blood pressure systolic within 140-160 range. We will maintain euvolemia, euglycemia, normothermia, and oxygen saturation more than 90%. We will reverse coagulopathy, which most likely related to her liver disease with vitamin K and fresh frozen plasma. Neurology consult is pending. Neurosurgical team was contacted, however, was deemed not to be a good candidate for neurosurgical intervention. The hemorrhage was deemed not to amenable to a neurosurgical intervention at present time. We will repeat CAT scan of the head in 12 hours. ccm time 40 min Martinez Arita MD ROSEMARIE
--- NOTE | 2017-10-28 09:00 | CARD ---
APPROVED REPORT EXAM: Two-dimensional and M-mode echocardiogram with Doppler and color Doppler. Other Information Quality : GoodRhythm : INDICATION INTRACRANIAL HEMORRAGE/LVFX 2D DIMENSIONS Left Atrium (2D)4.0 (1.6-4.0cm)IVSd1.2 (0.7-1.1cm) LVDd4.4 (3.9-5.9cm)PWd1.2 (0.7-1.1cm) LVDs2.8 (2.5-4.0cm)FS (%) 36.4 % LVEF (%)66.0 (>50%) M-Mode DIMENSIONS Aortic Root3.50 (2.2-3.7cm)Aortic Cusp Exc.2.00 (1.5-2.0cm) Aortic Valve AoV Peak Oythdprd630.0cm/sLVOT Peak Wilvilpp398.0cm/sLVOT VTI29.00cm AI P 1/2 Hzhm055or Mitral Valve MV E Usiejcgf410.0cm/sMV A Xiuesbql44.8cm/sE/A ratio1.5 TDI Lateral E' Peak V10.80cm/sMedial E' Peak V9.65cm/sE/Lateral E'12.5 E/Medial E'14.0 Pulmonary Valve PV Peak Ppawcksh68.9cm/sPV Peak Grad.3mmHg Tricuspid Valve TR Peak Qiupffqo186tm/sRAP SWQTSWST34gjXjRC Peak Gr.37mmHg PVBF78gsEb LEFT VENTRICLE The left ventricle is normal size. There is normal left ventricular wall thickness. The left ventricular function is normal. The left ventricular ejection fraction is within the normal range. There is normal LV segmental wall motion. RIGHT VENTRICLE The right ventricle is normal size. ATRIA The left atrium size is normal. The right atrium size is normal. The interatrial septum is intact with no evidence for an atrial septal defect. AORTIC VALVE The aortic valve is normal in structure. MITRAL VALVE The mitral valve is normal in structure. TRICUSPID VALVE The tricuspid valve is normal in structure. There is trace to mild tricuspid regurgitation. PULMONIC VALVE The pulmonic valve is not well visualized. GREAT VESSELS The aortic root is normal in size. PERICARDIAL EFFUSION There is no pericardial effusion. <Conclusion> The left ventricle is normal size. There is normal left ventricular wall thickness. The left ventricular function is normal.
--- NOTE | 2017-10-28 09:28 | US ---
PROCEDURE: Bilateral carotid artery duplex ultrasound HISTORY: Carotid stenosis intracranial hemorrhage P PHYSICIAN(S): Chucho Price MD. TECHNIQUE: Duplex sonography and color-flow Doppler were used to evaluate the carotid bifurcations and limited segments of the vertebral arteries bilaterally. FINDINGS: There is mild intimal- medial thickening noted at the carotid bifurcations bilaterally. The peak systolic velocity in the proximal right internal carotid artery is 65 cm/sec. This corresponds to a 0-19 percent proximal right ICA stenosis. Normal systolic velocities are noted in the proximal right external carotid artery. There is antegrade flow in the right vertebral artery. The peak systolic velocity in the proximal left internal carotid artery is 101 cm/sec. This corresponds to a 0-19 percent proximal left ICA stenosis. Normal systolic velocities are noted in the proximal left external carotid artery. There is antegrade flow in the left vertebral artery. IMPRESSION: 1. Bilateral 0-19 percent proximal ICA stenoses. 2. Antegrade flow in both vertebral arteries.
[2017-10-28] MEDS: levETIRAcetam 500mg IVPB 500 MG/100 ML BAG IV SCH (10:09)
--- NOTE | 2017-10-28 11:52 | CP.PCM.PN ---
Subjective - Date & Time of Evaluation Date of Evaluation: 10/28/17 Time of Evaluation: 09:50 - Subjective Subjective: Neuro progress note: Pt seen and examined at bedside. No acute events overnight. Pt states that her L sided weakness has improved. She continues to be somnolent but is able to converse and follow commands. No complaints at this time. 12 Point ROS performed and negative other than stated above. Objective - Vital Signs/Intake and Output Vital Signs (last 24 hours): Temp Pulse Resp BP Pulse Ox 98.4 F 104 H 17 140/74 90 L 10/27/17 20:00 10/28/17 09:52 10/28/17 09:52 10/28/17 09:52 10/28/17 09:52 Intake and Output: 10/28/17 10/28/17 06:59 18:59 Intake Total 1514 Output Total 125 Balance 1389 - Medications Medications: Current Medications Levetiracetam (Keppra 500mg Ivpb) 500 mg in 100 mls @ 460 mls/hr IV Q12 [facility] Last Admin: 10/28/17 10:09 Dose: 460 mls/hr Sodium Chloride (Sodium Chloride 0.9%) 1,000 mls @ 100 mls/hr IV .Q10H [facility] Last Admin: 10/27/17 15:00 Dose: 100 mls/hr Lactulose (Enulose) 20 gm PO HS [facility] Last Admin: 10/27/17 23:09 Dose: 20 gm Pantoprazole Sodium (Protonix Inj) 40 mg IVP DAILY [facility] Last Admin: 10/28/17 10:10 Dose: 40 mg Rifaximin (Xifaxan) 550 mg PO BID [facility] PRN Reason: Protocol Last Admin: 10/28/17 10:11 Dose: 550 mg - Labs Labs: 10/28/17 05:30 10/28/17 05:30 PT 16.8 SECONDS (9.4-12.5) H 10/28/17 05:30 INR 1.45 (0.93-1.08) H 10/28/17 05:30 APTT 46.7 Seconds (25.1-36.5) H 10/27/17 03:45 - Constitutional Appears: No Acute Distress - Neurological Exam Neurological Exam: Alert, Awake, Oriented x3 Neuro motor strength exam: Left Upper Extremity: 4, Right Upper Extremity: 5, Left Lower Extremity: 4, Right Lower Extremity: 5 Assessment and Plan - Assessment and Plan (Free Text) Assessment: 47-year-old woman with a past medical history of alcoholic liver cirrhosis, s/p TIPS, currently on liver transplant list, history of hepatic encephalopathy, seizure disorder, SLE, who was found yesterday with left side weakness, and somnolence. Pateint found to have intracrebral hemorrhage likely secondary to hypertension and liver disease with coagulopathy. - D/manjinder Keppra which can be adding to patients somnolence - HOB elevation at 45 degrees - Maintain SBP between 100 and 150 mm Hg - Control serum glucose to maintain euglycemia blood sugars 140-180 and avoid dextrose containing fluids - Avoid hyperthermia - Repeat CT head at 12 hours showed stable intracrebral hemorrhage - CT head STAT if the patient's mental status declines or there are new focal neurological deficits - Q 1 hour neuro-checks - Continue current management per the ICU team - Neuro surg consult - No intervention at this time Case and plan was reviewed and discussed in detail with Dr Bradley.
--- NOTE | 2017-10-28 11:59 | CP.PCM.PN ---
<Alejandro Morrissey - Last Filed: 10/28/17 13:57> Subjective - Date & Time of Evaluation Date of Evaluation: 10/28/17 Time of Evaluation: 07:40 - Subjective Subjective: Medicine progress note for Dr. Garry Tan Hospitalist Service Patient seen and examined. Patient remains lethargic and somnolent. Patient was only able to tell me that she was doing fine before nodding off to sleep. Could not obtain ROS. Objective - Vital Signs/Intake and Output Vital Signs (last 24 hours): Temp Pulse Resp BP Pulse Ox 98.4 F 104 H 17 140/74 90 L 10/27/17 20:00 10/28/17 09:52 10/28/17 09:52 10/28/17 09:52 10/28/17 09:52 Intake and Output: 10/28/17 10/28/17 06:59 18:59 Intake Total 1514 Output Total 125 Balance 1389 - Medications Medications: Current Medications Folic Acid (Folic Acid) 1 mg PO DAILY [facility] Levetiracetam (Keppra 500mg Ivpb) 500 mg in 100 mls @ 460 mls/hr IV Q12 [facility] Last Admin: 10/28/17 10:09 Dose: 460 mls/hr Sodium Chloride (Sodium Chloride 0.9%) 1,000 mls @ 100 mls/hr IV .Q10H [facility] Last Admin: 10/27/17 15:00 Dose: 100 mls/hr Lactulose (Enulose) 20 gm PO HS [facility] Last Admin: 10/27/17 23:09 Dose: 20 gm Multivitamins/Minerals (Therapeutic-M Tab) 1 tab PO 0800 [facility] Pantoprazole Sodium (Protonix Inj) 40 mg IVP DAILY [facility] Last Admin: 10/28/17 10:10 Dose: 40 mg Rifaximin (Xifaxan) 550 mg PO BID [facility] PRN Reason: Protocol Last Admin: 10/28/17 10:11 Dose: 550 mg - Labs Labs: 10/28/17 05:30 10/28/17 05:30 PT 16.8 SECONDS (9.4-12.5) H 10/28/17 05:30 INR 1.45 (0.93-1.08) H 10/28/17 05:30 APTT 46.7 Seconds (25.1-36.5) H 10/27/17 03:45 - Constitutional Appears: No Acute Distress - Head Exam Head Exam: ATRAUMATIC, NORMOCEPHALIC - Eye Exam Eye Exam: Normal appearance - ENT Exam ENT Exam: Mucous Membranes Moist - Respiratory Exam Respiratory Exam: Clear to Ausculation Bilateral, NORMAL BREATHING PATTERN. absent: Rales, Rhonchi, Wheezes - Cardiovascular Exam Cardiovascular Exam: REGULAR RHYTHM, +S1, +S2 - GI/Abdominal Exam GI & Abdominal Exam: Soft, Normal Bowel Sounds. absent: Distended, Guarding, Tenderness - Extremities Exam Extremities Exam: absent: Pedal Edema - Neurological Exam Additional comments: Lethargic and somnolent so was unable to cooperate with physical exam. Left upper extremity: was able to squeeze my fingers and flex her elbow but did not extend as asked. At that point she went back to sleep. - Skin Skin Exam: Dry, Warm Assessment and Plan - Assessment and Plan (Free Text) Assessment: This is a 47 year old female with PMHx decompensated cirrhosis (due to former ETOH abuse), lupus, seizure disorder who presented with altered mental status due to right basal ganglia hemorrhage and metabolic encephalopathy. Right Basal Ganglia Hemorrhage As evidenced by MRI Neurology consulted Stable per repeat head CT Per neurology recommendations, keep patient normotensive On NS 100 cc/hr s/p 2 units of FFP and Vitamin K on 10/27 History of Seizure Disorder IV Keppra History of Decompensated Cirrhosis Initial ammonia 45 Repeat ammonia 97 Lactulose 20 mg PO Q6H with holding parameters to titrate to 2-3 bowel movements daily Xifaximin 550 mg PO BID PPX GI: Protonix DVT: SCDs. Chemical VTE contraindicated Disposition: Need to adjust lactulose to allow for 2-3 bowel movements daily. Patient likely will go to [facility] upon discharge. Seen and discussed with Dr. Garry Tan <Garry Tan - Last Filed: 10/28/17 17:36> Objective - Vital Signs/Intake and Output Vital Signs (last 24 hours): Temp Pulse Resp BP Pulse Ox 98.4 F 89 13 128/61 100 10/27/17 20:00 10/28/17 15:10 10/28/17 15:10 10/28/17 14:39 10/28/17 15:10 Intake and Output: 10/28/17 10/28/17 06:59 18:59 Intake Total 1514 Output Total 125 Balance 1389 - Medications Medications: Current Medications Albuterol/Ipratropium (Duoneb 3 Mg/0.5 Mg (3 Ml) Ud) 3 ml IH [id number] PRN PRN Reason: Shortness of Breath Folic Acid (Folic Acid) 1 mg PO DAILY [facility] Sodium Chloride (Sodium Chloride 0.9%) 1,000 mls @ 100 mls/hr IV .Q10H [facility] Last Admin: 10/28/17 12:19 Dose: 100 mls/hr Lactulose (Enulose) 20 gm PO Q6H [facility] Last Admin: 10/28/17 14:44 Dose: 20 gm Multivitamins/Minerals (Therapeutic-M Tab) 1 tab PO 0800 [facility] Pantoprazole Sodium (Protonix Ec Tab) 40 mg PO DAILY [facility] Rifaximin (Xifaxan) 550 mg PO BID [facility] PRN Reason: Protocol Last Admin: 10/28/17 10:11 Dose: 550 mg - Labs Labs: 10/28/17 05:30 10/28/17 05:30 PT 16.8 SECONDS (9.4-12.5) H 10/28/17 05:30 INR 1.45 (0.93-1.08) H 10/28/17 05:30 APTT 46.7 Seconds (25.1-36.5) H 10/27/17 03:45 Attending/Attestation - Attestation I have personally seen and examined this patient.: Yes I have fully participated in the care of the patient.: Yes I have reviewed all pertinent clinical information, including history, physical exam and plan: Yes Notes (Text): I have seen and examined the patient at bedside. Agree with the above note with the following additions/ exceptions: Briefly this is 47 year old female with history of alcoholic liver cirrhosis, S/P TIPS, currently on transplant list in [facility], hepatic encephalopathy, seizure disorder, SLE who was admitted for evaluation of left sided weakness, somnolence and found to have intracerebral hemorrhage most likley due to coagulopathy secondar to liver cirrhosis. Patient appears somnolent today. She was given morphine an hour ago. Will check ammonia level as she was refusing to take lactulose yesterday. Will increase lactulose frequency of she continues to have hyperammonemia. Keppra was stopped today by Neurologist. No intervention planned as per NS. Maintain euvolemia, euglycemia and normotension. Patient has iron deficiency anemia. Will start IV iron. Upon discharge patient will follow up with Dr Guzmán. Dr Garry Tan
[2017-10-28] MEDS: Sodium Chloride 0.9% 1,000 ML IV SCH (12:19)
[2017-10-28] MEDS ORDERED: Albuterol-Ipratrop 3 mg / 0.5 (3 ml) UD IH PRN (12:45)
[2017-10-28] MEDS ORDERED: Magnesium Oxide 400 mg Tab UD PO STA (15:19)
[2017-10-29 05:35] LABS: BASO # 0.02 K/mm3 (0.0-2.0); BASO % 0.5 % (0.0-3.0); EOS # 0.1 (0.0-0.7); EOS % 3.4 % (1.5-5.0); GRAN # 1.17 (1.4-6.5); GRAN % 31.1 % (50.0-68.0); HEMOGLOBIN 7.9 g/dL (12.0-16.0); LYMPH # 1.8 (1.2-3.4); LYMPH % 46.7 % (22.0-35.0); MEAN CELL VOLUME 107.8 fl (80.0-105.0); MEAN CORPUSCULAR HEMOGLOBIN 34.2 pg (25.0-35.0); MEAN CORPUSCULAR HGB CONC 31.7 g/dl (31.0-37.0); MEAN PLATELET VOLUME 10.1 fl (7.0-11.0); MONO # 0.7 (0.1-0.6); MONO % 18.3 % (1.0-6.0); RBC 2.31 10^6/uL (3.5-6.1); RED CELL DISTRIBUTION WIDTH 19.9 % (11.5-14.5); WHITE BLOOD COUNT 3.8 10^3/ul (4.5-11.0)
[2017-10-29 06:03] LABS: INR 1.74 (0.93-1.08); PROTHROMBIN TIME 20.1 SECONDS (9.4-12.5)
[2017-10-29 06:22] LABS: ALB/GLOB RATIO 0.5 (1.1-1.8); ALBUMIN 2.2 g/dL (3.0-4.8); ALT/SGPT 43 U/L (7-56); AST/SGOT 77 U/L (14-36); BLOOD UREA NITROGEN 10 mg/dL (7-21); CALCIUM 7.7 mg/dL (8.4-10.5); GFR AFRICAN-AMERICAN > 60; GFR NON-AFRICAN AMERICAN > 60
[2017-10-29] MEDS: Pantoprazole 40 mg EC Tab PO SCH (09:17)
[2017-10-29] MEDS: Multivitamin With Minerals Tab PO SCH (09:17)
--- NOTE | 2017-10-29 09:51 | CP.PCM.PN ---
<Nasir Carlson - Last Filed: 10/29/17 09:47> Subjective - Date & Time of Evaluation Date of Evaluation: 10/29/17 Time of Evaluation: 09:47 - Subjective Subjective: Patient seen and examined at bedside. Patient with no acute events overnight. Patient is more alert today than yesterday. Patient complaining of headache. Patient remains with slurred speech. Denies chest pain, shortness of breath, nausea, vomiting, diarrhea, fever, chills, changes in vision. Objective - Vital Signs/Intake and Output Vital Signs (last 24 hours): Temp Pulse Resp BP Pulse Ox 99.5 F 88 16 149/78 93 L 10/29/17 00:00 10/29/17 06:50 10/29/17 06:50 10/29/17 01:39 10/29/17 07:00 - Medications Medications: Current Medications Albuterol/Ipratropium (Duoneb 3 Mg/0.5 Mg (3 Ml) Ud) 3 ml IH [id number] PRN PRN Reason: Shortness of Breath Folic Acid (Folic Acid) 1 mg PO DAILY [facility] Last Admin: 10/29/17 09:17 Dose: 1 mg Sodium Chloride (Sodium Chloride 0.9%) 1,000 mls @ 100 mls/hr IV .Q10H [facility] Last Admin: 10/28/17 12:19 Dose: 100 mls/hr Iron Sucrose 200 mg/ Sodium (Chloride) 110 mls @ 110 mls/hr IVPB ONCE ONE Stop: 10/29/17 10:38 Lactulose (Enulose) 20 gm PO Q6H [facility] Last Admin: 10/29/17 09:18 Dose: 20 gm Multivitamins/Minerals (Therapeutic-M Tab) 1 tab PO 0800 [facility] Last Admin: 10/29/17 09:17 Dose: 1 tab Pantoprazole Sodium (Protonix Ec Tab) 40 mg PO DAILY [facility] Last Admin: 10/29/17 09:17 Dose: 40 mg Rifaximin (Xifaxan) 550 mg PO BID [facility] PRN Reason: Protocol Last Admin: 10/28/17 18:45 Dose: 550 mg - Labs Labs: 10/29/17 05:15 10/29/17 05:15 PT 20.1 SECONDS (9.4-12.5) H 10/29/17 05:15 INR 1.74 (0.93-1.08) H 10/29/17 05:15 APTT 46.7 Seconds (25.1-36.5) H 10/27/17 03:45 - Constitutional Appears: Non-toxic, No Acute Distress - Head Exam Head Exam: ATRAUMATIC, NORMAL INSPECTION, NORMOCEPHALIC - Eye Exam Eye Exam: EOMI, Normal appearance - ENT Exam ENT Exam: Mucous Membranes Moist, Normal Exam - Respiratory Exam Respiratory Exam: Clear to Ausculation Bilateral, NORMAL BREATHING PATTERN. absent: Rhonchi, Wheezes - Cardiovascular Exam Cardiovascular Exam: RRR, +S1, +S2 - GI/Abdominal Exam GI & Abdominal Exam: Soft, Normal Bowel Sounds. absent: Tenderness - Extremities Exam Extremities Exam: Normal Inspection. absent: Calf Tenderness, Pedal Edema - Neurological Exam Neurological Exam: Alert, Awake, Oriented x3 Neuro motor strength exam: Left Upper Extremity: 5, Left Lower Extremity: 4, Right Lower Extremity: 5 Additional comments: Slurred speech - Psychiatric Exam Psychiatric exam: Normal Affect, Normal Mood - Skin Skin Exam: Intact, Normal Color, Warm Assessment and Plan - Assessment and Plan (Free Text) Plan: 47 year old female with PMHx of decompensated cirrhosis secondary to EtOH abuse , lupus, and seizure disorder who initially presented with altered mental status due to right basal ganglia hemorrhage and metabolic encephalopathy. Patient with elevated ammonia levels, will continue Rifaximin and Lactulose, titrating bowel movements for 2-3 per day. Will obtain ammonia levels daily. Patient will also receive 2 units of FFP to due to increasing INR in the setting of intracerebral hemorrhage. Patient will require subacute rehab upon discharge. 1. Right Basal Ganglia Hemorrhage Stable per repeat head CT Per neurology recommendations, keep patient normotensive NS 100 cc/hr 2 units of FFP ordered 2. History of Seizure Disorder Keppra held at this time secondary to somnolence yesterday 3. History of Decompensated Cirrhosis Ammonia elevated, repeat levels daily Continue Lactulose 20 mg PO Q6H with holding parameters to titrate to 2-3 bowel movements daily Continue Xifaximin 550 mg PO BID 4. PPX Protonix SCDs Aldo, PGY-2 <Garry Tan B - Last Filed: 10/29/17 14:37> Objective - Vital Signs/Intake and Output Vital Signs (last 24 hours): Temp Pulse Resp BP Pulse Ox 99.5 F 88 27 H 149/78 93 L 10/29/17 00:00 10/29/17 12:22 10/29/17 12:22 10/29/17 01:39 10/29/17 07:00 - Medications Medications: Current Medications Albuterol/Ipratropium (Duoneb 3 Mg/0.5 Mg (3 Ml) Ud) 3 ml IH [id number] PRN PRN Reason: Shortness of Breath Folic Acid (Folic Acid) 1 mg PO DAILY [facility] Last Admin: 10/29/17 09:17 Dose: 1 mg Sodium Chloride (Sodium Chloride 0.9%) 1,000 mls @ 100 mls/hr IV .Q10H [facility] Last Admin: 10/28/17 12:19 Dose: 100 mls/hr Lactulose (Enulose) 20 gm PO Q6H [facility] Last Admin: 10/29/17 09:18 Dose: 20 gm Multivitamins/Minerals (Therapeutic-M Tab) 1 tab PO 0800 [facility] Last Admin: 10/29/17 09:17 Dose: 1 tab Pantoprazole Sodium (Protonix Ec Tab) 40 mg PO DAILY [facility] Last Admin: 10/29/17 09:17 Dose: 40 mg Rifaximin (Xifaxan) 550 mg PO BID [facility] PRN Reason: Protocol Last Admin: 10/29/17 11:25 Dose: 550 mg - Labs Labs: 10/29/17 05:15 10/29/17 05:15 PT 20.1 SECONDS (9.4-12.5) H 10/29/17 05:15 INR 1.74 (0.93-1.08) H 10/29/17 05:15 APTT 46.7 Seconds (25.1-36.5) H 10/27/17 03:45 Attending/Attestation - Attestation I have personally seen and examined this patient.: Yes I have fully participated in the care of the patient.: Yes I have reviewed all pertinent clinical information, including history, physical exam and plan: Yes Notes (Text): have seen and examined the patient at bedside. Agree with the above note with the following additions/ exceptions: Briefly this is 47 year old female with history of alcoholic liver cirrhosis, S/P TIPS, currently on transplant list in [place], hepatic encephalopathy, seizure disorder, SLE who was admitted for evaluation of left sided weakness, somnolence and found to have intracerebral hemorrhage most likely due to coagulopathy secondary to liver cirrhosis. Patient appears more awake and alert today. Slurred speech has improved somewhat however she continues to have left sided facial motor weakness and LUE/ LLE weakness. No new weakness or focal deficit noted. Coagulopathy was noted. INR is 1.7. Will give 2 units of FFP. Maintain euvolemia, euglycemia and normotension. Patient has iron deficiency anemia. Will start IV iron. Upon discharge patient will follow up with Dr Guzmán. Dr Garry Tan
[2017-10-29] MEDS ORDERED: Magnesium Oxide 400 mg Tab UD PO ONE (20:14)
[2017-10-30 05:32] LABS: INR 1.71 (0.93-1.08); PROTHROMBIN TIME 19.9 SECONDS (9.4-12.5)
[2017-10-30] MEDS ORDERED: Magnesium Sulfate 2 GM in Sodium Chloride 0.9% 100 ML IVPB ONE (06:16)
[2017-10-30] MEDS ORDERED: Valproate 0 MG in Sodium Chloride 0.9% 100 ML IVPB SCH (06:30)
--- NOTE | 2017-10-30 06:33 | CP.PCM.PN ---
Subjective - Date & Time of Evaluation Date of Evaluation: 10/30/17 Time of Evaluation: 06:21 - Subjective Subjective: Ms. Cruz was seen and examined at the bedside in ICU. She is alert, oriented, claims of experiencing generalized headache since last night. She further describe it as pressure-like, pain scale of 10/10, but denies any blurred vision , diplopia, nausea, or vomiting. Latest blood pressure ,160/90, 80. She remains with left side weakness. She is able to follow simple commands. There was no untoward events overnight. Objective - Vital Signs/Intake and Output Vital Signs (last 24 hours): Temp Pulse Resp BP Pulse Ox 98.7 F 87 20 140/80 98 10/30/17 00:00 10/30/17 02:00 10/30/17 00:00 10/30/17 00:00 10/30/17 00:00 Intake and Output: 10/29/17 10/30/17 18:59 06:59 Intake Total 100 Output Total 300 Balance -200 - Medications Medications: Current Medications Albuterol/Ipratropium (Duoneb 3 Mg/0.5 Mg (3 Ml) Ud) 3 ml IH [id number] PRN PRN Reason: Shortness of Breath Dexamethasone (Decadron Inj) 10 mg IVP ONCE ONE Stop: 10/30/17 06:21 Folic Acid (Folic Acid) 1 mg PO DAILY [facility] Last Admin: 10/29/17 09:17 Dose: 1 mg Sodium Chloride (Sodium Chloride 0.9%) 1,000 mls @ 100 mls/hr IV .Q10H [facility] Last Admin: 10/28/17 12:19 Dose: 100 mls/hr Magnesium Sulfate 2 gm/ Sodium (Chloride) 104 mls @ 102 mls/hr IVPB ONCE ONE Stop: 10/30/17 07:17 Lactulose (Enulose) 20 gm PO Q6H [facility] Last Admin: 10/30/17 00:27 Dose: 20 gm Magnesium Oxide (Mag-Ox) 400 mg PO BID [facility] Multivitamins/Minerals (Therapeutic-M Tab) 1 tab PO 0800 [facility] Last Admin: 10/29/17 09:17 Dose: 1 tab Pantoprazole Sodium (Protonix Ec Tab) 40 mg PO DAILY [facility] Last Admin: 10/29/17 09:17 Dose: 40 mg Rifaximin (Xifaxan) 550 mg PO BID [facility] PRN Reason: Protocol Last Admin: 10/29/17 18:05 Dose: 550 mg - Labs Labs: 10/29/17 05:15 10/29/17 05:15 PT 19.9 SECONDS (9.4-12.5) H 10/30/17 05:00 INR 1.71 (0.93-1.08) H 10/30/17 05:00 APTT 46.7 Seconds (25.1-36.5) H 10/27/17 03:45 - Constitutional Appears: No Acute Distress - Head Exam Head Exam: NORMAL INSPECTION - Neurological Exam Neurological Exam: Alert, Awake Neuro motor strength exam: Left Upper Extremity: 3, Right Upper Extremity: 5, Left Lower Extremity: 3, Right Lower Extremity: 5 Additional comments: She is able to answer questions and follow simple commands. Assessment and Plan (1) Intracerebral hemorrhage Assessment & Plan: Case discussed with Dr. Bradley, continue all current medical, physical, and occupational therapies. Recommend to repeat CT of the head without contrast. Status: Acute (2) Head ache Assessment & Plan: Case discussed with Dr. Bradley, recommend magnesium 2 gms IVPB for one dose, Magnesium oxide 400 mg PO BID, and decadron 10 mg Iv for one dose. Status: Acute
[2017-10-30 08:14] LABS: BASO # 0.05 K/mm3 (0.0-2.0); BASO % 1.3 % (0.0-3.0); EOS # 0.2 (0.0-0.7); EOS % 4.1 % (1.5-5.0); GRAN # 2.03 (1.4-6.5); GRAN % 51.7 % (50.0-68.0); HEMOGLOBIN 7.8 g/dL (12.0-16.0); LYMPH # 1.1 (1.2-3.4); LYMPH % 29.1 % (22.0-35.0); MEAN CELL VOLUME 108.1 fl (80.0-105.0); MEAN CORPUSCULAR HGB CONC 32.4 g/dl (31.0-37.0); MEAN PLATELET VOLUME 9.7 fl (7.0-11.0); MONO # 0.5 (0.1-0.6); MONO % 13.8 % (1.0-6.0); RBC 2.23 10^6/uL (3.5-6.1); RED CELL DISTRIBUTION WIDTH 19.7 % (11.5-14.5); WHITE BLOOD COUNT 3.9 10^3/ul (4.5-11.0)
[2017-10-30 08:26] LABS: ALB/GLOB RATIO 0.5 (1.1-1.8); ALBUMIN 2.2 g/dL (3.0-4.8); ALT/SGPT 39 U/L (7-56); AST/SGOT 66 U/L (14-36); BLOOD UREA NITROGEN 7 mg/dL (7-21); CALCIUM 8.3 mg/dL (8.4-10.5); GFR AFRICAN-AMERICAN > 60; GFR NON-AFRICAN AMERICAN > 60
--- NOTE | 2017-10-30 09:31 | CT ---
PROCEDURE: CT HEAD WITHOUT CONTRAST. HISTORY: ICH, headache COMPARISON: None available. TECHNIQUE: Axial computed tomography images were obtained through the head/brain without intravenous contrast. Radiation dose: Total exam DLP = comparison made with CT scan brain 10/27/2017. MGy-cm. This CT exam was performed using one or more of the following dose reduction techniques: Automated exposure control, adjustment of the mA and/or kV according to patient size, and/or use of iterative reconstruction technique. FINDINGS: HEMORRHAGE: Re- demonstrated is a relatively large elliptical shaped right lateral. Which exhibits a thin rim of low-attenuation edema and or necrotic brain tissue which has increased in size slightly. . . The hemorrhage and surrounding low-attenuation exert mild mass effect with compression of the right lateral ventricle and right temporal horn. There is also mild overlying sulcal effacement. . . BRAIN: Suspect minimal chronic periventricular white matter ischemic changes. VENTRICLES: Small amount of intraventricular hemorrhage has diminished. No obstructive hydrocephalus. CALVARIUM: Unremarkable. PARANASAL SINUSES: Unremarkable as visualized. No significant inflammatory changes. MASTOID AIR CELLS: Unremarkable as visualized. No inflammatory changes. OTHER FINDINGS: None. IMPRESSION: Re- demonstrated is a relatively large elliptical shaped hemorrhage on. There is a thin rim of surrounding low-attenuation edema or necrotic brain tissue which has increased in size. Persistent surrounding mild mass-effect. . There has been interval decrease in the amount of intraventricular hemorrhage. No obstructive hydrocephalus. Suspect minimal chronic periventricular white matter ischemic changes. Mild generalized volume loss Mild generalized volume loss.
--- NOTE | 2017-10-30 10:00 | CP.PCM.PN ---
<Nasir Carlson - Last Filed: 10/30/17 10:08> Subjective - Date & Time of Evaluation Date of Evaluation: 10/30/17 Time of Evaluation: 09:54 - Subjective Subjective: Patient seen and examined at bedside. Patient is more lethargic and somnolent than previous day. Patient does respond appropriately to commands. She is still complaining of a headache and difficulty speaking. Denies chest pain, nausea, vomiting, shortness of breath, fever, chills. Objective - Vital Signs/Intake and Output Vital Signs (last 24 hours): Temp Pulse Resp BP Pulse Ox 98.7 F 90 13 137/69 99 10/30/17 00:00 10/30/17 06:33 10/30/17 06:33 10/30/17 06:42 10/30/17 04:00 Intake and Output: 10/30/17 10/30/17 06:59 18:59 Intake Total 1200 Output Total 450 Balance 750 - Medications Medications: Current Medications Albuterol/Ipratropium (Duoneb 3 Mg/0.5 Mg (3 Ml) Ud) 3 ml IH [id number] PRN PRN Reason: Shortness of Breath Folic Acid (Folic Acid) 1 mg PO DAILY [facility] Last Admin: 10/29/17 09:17 Dose: 1 mg Lactulose (Enulose) 20 gm PO Q6H [facility] Last Admin: 10/30/17 06:37 Dose: 20 gm Magnesium Oxide (Mag-Ox) 400 mg PO BID [facility] Multivitamins/Minerals (Therapeutic-M Tab) 1 tab PO 0800 [facility] Last Admin: 10/29/17 09:17 Dose: 1 tab Pantoprazole Sodium (Protonix Ec Tab) 40 mg PO DAILY [facility] Last Admin: 10/29/17 09:17 Dose: 40 mg Rifaximin (Xifaxan) 550 mg PO BID [facility] PRN Reason: Protocol Last Admin: 10/29/17 18:05 Dose: 550 mg - Labs Labs: 10/30/17 05:30 10/30/17 05:30 PT 19.9 SECONDS (9.4-12.5) H 10/30/17 05:00 INR 1.71 (0.93-1.08) H 10/30/17 05:00 APTT 46.7 Seconds (25.1-36.5) H 10/27/17 03:45 - Constitutional Appears: Non-toxic, No Acute Distress, Agitated - Head Exam Head Exam: ATRAUMATIC, NORMAL INSPECTION, NORMOCEPHALIC - ENT Exam ENT Exam: Mucous Membranes Moist - Respiratory Exam Respiratory Exam: Clear to Ausculation Bilateral, NORMAL BREATHING PATTERN - Cardiovascular Exam Cardiovascular Exam: RRR, +S1, +S2 - GI/Abdominal Exam GI & Abdominal Exam: Soft, Normal Bowel Sounds. absent: Tenderness - Extremities Exam Extremities Exam: Normal Inspection. absent: Calf Tenderness, Pedal Edema - Neurological Exam Neurological Exam: Alert, Awake, Oriented x3 Neuro motor strength exam: Left Upper Extremity: 3, Right Upper Extremity: 5, Left Lower Extremity: 3, Right Lower Extremity: 5 - Psychiatric Exam Psychiatric exam: Agitated, Normal Affect - Skin Skin Exam: Intact, Warm Additional comments: Jaundiced Assessment and Plan - Assessment and Plan (Free Text) Plan: 47 year old female with PMHx of decompensated cirrhosis secondary to EtOH abuse , lupus, and seizure disorder who initially presented with altered mental status due to right basal ganglia hemorrhage and metabolic encephalopathy. Ammonia level has come down to normal, but will continue Rifaximin and Lactulose , titrating bowel movements for 2-3 per day. Patient received Decadron and Magnesium this morning from neurology for headache. Repeat head CT shows increase in edema or necrotic tissue around hemorrhage. INR also remains elevated s/p 2 units of FFP. Neurology recommends starting Decadron 10 mg q12h. 1. Right Basal Ganglia Hemorrhage Repeat Head CT demonstrates worsening edema/necrotic tissue Decadron 10 mg q12mg started as per Neurology Per neurology recommendations, keep patient normotensive Will stop IVF to avoid hypertension Will monitor INR closely 2. History of Seizure Disorder Continue to hold Keppra held 3. History of Decompensated Cirrhosis Ammonia within normal limits Continue Lactulose 20 mg PO Q6H with holding parameters to titrate to 2-3 bowel movements daily Continue Xifaximin 550 mg PO BID 4. PPX Protonix SCDs Aldo, PGY-2 <Garry Tan B - Last Filed: 10/30/17 15:26> Objective - Vital Signs/Intake and Output Vital Signs (last 24 hours): Temp Pulse Resp BP Pulse Ox 98.7 F 89 13 137/69 99 10/30/17 00:00 10/30/17 10:11 10/30/17 06:33 10/30/17 06:42 10/30/17 04:00 Intake and Output: 10/30/17 10/30/17 06:59 18:59 Intake Total 1200 Output Total 450 Balance 750 - Medications Medications: Current Medications Albuterol/Ipratropium (Duoneb 3 Mg/0.5 Mg (3 Ml) Ud) 3 ml IH [id number] PRN PRN Reason: Shortness of Breath Dexamethasone (Decadron Inj) 10 mg IVP Q12 [facility] Folic Acid (Folic Acid) 1 mg PO DAILY [facility] Last Admin: 10/30/17 10:09 Dose: 1 mg Lactulose (Enulose) 20 gm PO Q6H [facility] Last Admin: 10/30/17 13:48 Dose: 20 gm Magnesium Oxide (Mag-Ox) 400 mg PO BID [facility] Last Admin: 10/30/17 10:09 Dose: 400 mg Multivitamins/Minerals (Therapeutic-M Tab) 1 tab PO 0800 [facility] Last Admin: 10/30/17 10:09 Dose: 1 tab Pantoprazole Sodium (Protonix Ec Tab) 40 mg PO DAILY [facility] Last Admin: 10/30/17 10:09 Dose: 40 mg Rifaximin (Xifaxan) 550 mg PO BID [facility] PRN Reason: Protocol Last Admin: 10/30/17 10:09 Dose: 550 mg - Labs Labs: 10/30/17 05:30 10/30/17 05:30 PT 19.9 SECONDS (9.4-12.5) H 10/30/17 05:00 INR 1.71 (0.93-1.08) H 10/30/17 05:00 APTT 46.7 Seconds (25.1-36.5) H 10/27/17 03:45 Attending/Attestation - Attestation I have personally seen and examined this patient.: Yes I have fully participated in the care of the patient.: Yes I have reviewed all pertinent clinical information, including history, physical exam and plan: Yes Notes (Text): I have seen and examined the patient at bedside. Agree with the above note with the following additions/ exceptions: Briefly this is 47 year old female with history of alcoholic liver cirrhosis, S/P TIPS, currently on transplant list in [facility], hepatic encephalopathy, seizure disorder, SLE who was admitted for evaluation of left sided weakness, somnolence and found to have intracerebral hemorrhage most likely due to coagulopathy secondary to liver cirrhosis. Patient was reported somnolent earlier however later on she was awake and oriented x3. Reported headache. Slurred speech has improved somewhat however she continues to have left sided facial motor weakness and LUE/LLE weakness. No new weakness or focal deficit noted. Ammonia level has improved. She did have a repeat CT head today. Findings of which were noted. As there is an increase in edema and decrease in hemorrhage, decadron was given. Coagulopathy was again noted. INR is still 1.7. She was given 2 units of FFP yesterday and 6 units total since admission. We will hold off on giving more FFP at this time. Discussed with neuro team. Maintain euvolemia, euglycemia and normotension. Patient has iron deficiency anemia. Will start PO iron upon discharge. Upon discharge patient will follow up with Dr Guzmán. Dr Garry Tan
[2017-10-30] MEDS: Pantoprazole 40 mg EC Tab PO SCH (10:09)
[2017-10-30] MEDS: Magnesium Oxide 400 mg Tab UD PO SCH ×2 (10:09→17:24)
[2017-10-30] MEDS: Multivitamin With Minerals Tab PO SCH (10:09)
[2017-10-31 07:13] LABS: HEMOGLOBIN 8.7 g/dL (12.0-16.0); MEAN CELL VOLUME 107.1 fl (80.0-105.0); MEAN CORPUSCULAR HEMOGLOBIN 34.5 pg (25.0-35.0); MEAN CORPUSCULAR HGB CONC 32.2 g/dl (31.0-37.0); MEAN PLATELET VOLUME 10.8 fl (7.0-11.0); RBC 2.52 10^6/uL (3.5-6.1); RED CELL DISTRIBUTION WIDTH 19.8 % (11.5-14.5); WHITE BLOOD COUNT 9.6 10^3/ul (4.5-11.0)
[2017-10-31 07:26] LABS: INR 1.96 (0.93-1.08); PROTHROMBIN TIME 22.9 SECONDS (9.4-12.5)
[2017-10-31 07:32] LABS: ALB/GLOB RATIO 0.5 (1.1-1.8); ALBUMIN 2.4 g/dL (3.0-4.8); ALT/SGPT 32 U/L (7-56); AST/SGOT 63 U/L (14-36); BLOOD UREA NITROGEN 13 mg/dL (7-21); CALCIUM 8.5 mg/dL (8.4-10.5); GFR AFRICAN-AMERICAN > 60; GFR NON-AFRICAN AMERICAN > 60
[2017-10-31] MEDS: Multivitamin With Minerals Tab PO SCH (08:10)
[2017-10-31] MEDS: Pantoprazole 40 mg EC Tab PO SCH (09:20)
[2017-10-31] MEDS: Magnesium Oxide 400 mg Tab UD PO SCH ×2 (09:21→17:25)
--- NOTE | 2017-10-31 12:25 | CP.PCM.PN ---
Subjective - Date & Time of Evaluation Date of Evaluation: 10/31/17 Time of Evaluation: 09:50 - Subjective Subjective: Neuro progress note: Pt seen and examined at bedside. No acute events overnight. Pt states that her headaches as much improved. Denies any visual changes. Pt is able to follow commands. Mild L sided weakness. 12 Point ROS performed and negative other than stated above. Objective - Vital Signs/Intake and Output Vital Signs (last 24 hours): Temp Pulse Resp BP Pulse Ox 98.2 F 80 47 H 124/70 99 10/31/17 11:21 10/30/17 18:00 10/30/17 13:40 10/31/17 06:14 10/30/17 04:00 Intake and Output: 10/31/17 10/31/17 06:59 18:59 Intake Total 500 Balance 500 - Medications Medications: Current Medications Albuterol/Ipratropium (Duoneb 3 Mg/0.5 Mg (3 Ml) Ud) 3 ml IH [id number] PRN PRN Reason: Shortness of Breath Dexamethasone (Decadron Inj) 10 mg IVP Q12 [facility] Last Admin: 10/31/17 09:20 Dose: 10 mg Folic Acid (Folic Acid) 1 mg PO DAILY [facility] Last Admin: 10/31/17 09:21 Dose: 1 mg Lactulose (Enulose) 20 gm PO Q6H [facility] Last Admin: 10/31/17 08:10 Dose: 20 gm Magnesium Oxide (Mag-Ox) 400 mg PO BID [facility] Last Admin: 10/31/17 09:21 Dose: 400 mg Multivitamins/Minerals (Therapeutic-M Tab) 1 tab PO 0800 [facility] Last Admin: 10/31/17 08:10 Dose: 1 tab Pantoprazole Sodium (Protonix Ec Tab) 40 mg PO DAILY [facility] Last Admin: 10/31/17 09:20 Dose: 40 mg Rifaximin (Xifaxan) 550 mg PO BID [facility] PRN Reason: Protocol Last Admin: 10/31/17 09:25 Dose: 550 mg - Labs Labs: 10/31/17 05:30 10/31/17 05:30 PT 22.9 SECONDS (9.4-12.5) H 10/31/17 05:30 INR 1.96 (0.93-1.08) H 10/31/17 05:30 APTT 46.7 Seconds (25.1-36.5) H 10/27/17 03:45 - Constitutional Appears: No Acute Distress - Eye Exam Eye Exam: EOMI Pupil Exam: NORMAL ACCOMODATION - Neurological Exam Neurological Exam: Alert, Awake, Oriented x3 Neuro motor strength exam: Left Upper Extremity: 4, Right Upper Extremity: 5, Left Lower Extremity: 4, Right Lower Extremity: 5 Assessment and Plan - Assessment and Plan (Free Text) Assessment: 47 year old female with PMHx of decompensated cirrhosis secondary to EtOH abuse , lupus, and seizure disorder who initially presented with altered mental status due to Intracerebral hemorrhage. - CT head w/o contrast tomorrow morning - HOB elevation at 45 degrees - Maintain SBP between 100 and 150 mm Hg - Control serum glucose to maintain euglycemia blood sugars 140-180 - Neuro-checks - Continue current management per the ICU team Case and plan was reviewed and discussed in detail with Dr Naik.
--- NOTE | 2017-10-31 13:02 | CT ---
PROCEDURE: CT HEAD WITHOUT CONTRAST. HISTORY: CVA COMPARISON: 10/30/2017 CT TECHNIQUE: Axial computed tomography images were obtained through the head/brain without intravenous contrast. Radiation dose: Total exam DLP = 900 mGy-cm. This CT exam was performed using one or more of the following dose reduction techniques: Automated exposure control, adjustment of the mA and/or kV according to patient size, and/or use of iterative reconstruction technique. FINDINGS: HEMORRHAGE: There is no change in the appearance of the acute hemorrhage in the right basal ganglia this measures 13 x 51 mm. There is a small amount of surrounding edema. BRAIN: No midline shift No atrophy or chronic microvascular ischemic changes. VENTRICLES: Unremarkable. No hydrocephalus. CALVARIUM: Unremarkable. PARANASAL SINUSES: Unremarkable as visualized. No significant inflammatory changes. MASTOID AIR CELLS: Unremarkable as visualized. No inflammatory changes. OTHER FINDINGS: None. IMPRESSION: Stable appearance of acute hemorrhage in the right basal ganglia
--- NOTE | 2017-10-31 15:23 | CP.PCM.PN ---
<Alejandro Morrissey - Last Filed: 10/31/17 15:35> Subjective - Date & Time of Evaluation Date of Evaluation: 10/31/17 Time of Evaluation: 07:50 - Subjective Subjective: Medicine progress note for Dr. Martin Hospitalist Service Patient seen and examined at bedside. Patient states that she is doing well this morning and is tolerating her diet. Patient denies headache at this time. Patient is in good spirits and is wondering about discharge planning. At this time, she denies fever, chills, changes in vision, headache, chest pain, dyspnea , abdominal pain, dysuria. Objective - Vital Signs/Intake and Output Vital Signs (last 24 hours): Temp Pulse Resp BP Pulse Ox 98.2 F 80 47 H 124/70 99 10/31/17 11:21 10/30/17 18:00 10/30/17 13:40 10/31/17 06:14 10/30/17 04:00 Intake and Output: 10/31/17 10/31/17 06:59 18:59 Intake Total 500 Balance 500 - Medications Medications: Current Medications Albuterol/Ipratropium (Duoneb 3 Mg/0.5 Mg (3 Ml) Ud) 3 ml IH [id number] PRN PRN Reason: Shortness of Breath Dexamethasone (Decadron Inj) 10 mg IVP Q12 [facility] Last Admin: 10/31/17 09:20 Dose: 10 mg Folic Acid (Folic Acid) 1 mg PO DAILY [facility] Last Admin: 10/31/17 09:21 Dose: 1 mg Lactulose (Enulose) 20 gm PO Q6H [facility] Last Admin: 10/31/17 12:42 Dose: 20 gm Magnesium Oxide (Mag-Ox) 400 mg PO BID [facility] Last Admin: 10/31/17 09:21 Dose: 400 mg Multivitamins/Minerals (Therapeutic-M Tab) 1 tab PO 0800 [facility] Last Admin: 10/31/17 08:10 Dose: 1 tab Pantoprazole Sodium (Protonix Ec Tab) 40 mg PO DAILY [facility] Last Admin: 10/31/17 09:20 Dose: 40 mg Rifaximin (Xifaxan) 550 mg PO BID [facility] PRN Reason: Protocol Last Admin: 10/31/17 09:25 Dose: 550 mg - Labs Labs: 10/31/17 05:30 10/31/17 05:30 PT 22.9 SECONDS (9.4-12.5) H 10/31/17 05:30 INR 1.96 (0.93-1.08) H 10/31/17 05:30 APTT 46.7 Seconds (25.1-36.5) H 10/27/17 03:45 - Constitutional Appears: No Acute Distress, Chronically Ill - Head Exam Head Exam: ATRAUMATIC, NORMOCEPHALIC - Eye Exam Eye Exam: EOMI, Normal appearance - ENT Exam ENT Exam: Mucous Membranes Moist - Respiratory Exam Respiratory Exam: Clear to Ausculation Bilateral, NORMAL BREATHING PATTERN. absent: Rales, Rhonchi, Wheezes - Cardiovascular Exam Cardiovascular Exam: REGULAR RHYTHM, +S1, +S2 - GI/Abdominal Exam GI & Abdominal Exam: Soft, Normal Bowel Sounds. absent: Distended, Firm, Guarding, Tenderness - Extremities Exam Extremities Exam: absent: Pedal Edema, Tenderness - Neurological Exam Neurological Exam: Alert, Awake, CN II-XII Intact (with the exception of left facial droop and slurring of the speech), Oriented x3 Neuro motor strength exam: Left Upper Extremity: 5, Right Upper Extremity: 5, Left Lower Extremity: 4, Right Lower Extremity: 5 - Psychiatric Exam Psychiatric exam: Normal Affect, Normal Mood - Skin Skin Exam: Dry, Warm Assessment and Plan - Assessment and Plan (Free Text) Assessment: 47 year old female with PMHx of decompensated cirrhosis secondary to EtOH abuse , lupus, and seizure disorder who initially presented with altered mental status due to right basal ganglia hemorrhage and metabolic encephalopathy. Ammonia level has come down to normal, but will continue Rifaximin and Lactulose , titrating bowel movements for 2-3 per day. Patient received Decadron and Magnesium this morning from neurology for headache. Repeat head CT shows increase in edema or necrotic tissue around hemorrhage. INR also remains elevated s/p 2 units of FFP. Neurology recommends starting Decadron 10 mg q12h. Plan: 1. Right Basal Ganglia Hemorrhage Repeat Head CT demonstrates worsening edema/necrotic tissue Decadron 10 mg q12mg started as per Neurology Per neurology recommendations, keep patient normotensive IVF were stopped to avoid hypertension Will monitor INR closely Another Repeat Head CT was done on 10/31/17 which showed stability of right basal ganglia hemorrhage 2. History of Seizure Disorder Continue to hold Keppra per neurology 3. History of Decompensated Cirrhosis Ammonia within normal limits Continue Lactulose 20 mg PO Q6H with holding parameters to titrate to 2-3 bowel movements daily Continue Xifaximin 550 mg PO BID 4. Prophylaxis Protonix SCDs Disposition: Pending rehab placement. Options being presented to patient and daughter at bedside. Follow up with case management. Patient seen and discussed with Dr. Martin <Cornelio Martin - Last Filed: 10/31/17 16:34> Objective - Vital Signs/Intake and Output Vital Signs (last 24 hours): Temp Pulse Resp BP Pulse Ox 98.2 F 80 47 H 124/70 99 10/31/17 11:21 10/30/17 18:00 10/30/17 13:40 10/31/17 06:14 10/30/17 04:00 Intake and Output: 10/31/17 10/31/17 06:59 18:59 Intake Total 500 Balance 500 - Medications Medications: Current Medications Albuterol/Ipratropium (Duoneb 3 Mg/0.5 Mg (3 Ml) Ud) 3 ml IH [id number] PRN PRN Reason: Shortness of Breath Dexamethasone (Decadron Inj) 10 mg IVP Q12 [facility] Last Admin: 10/31/17 09:20 Dose: 10 mg Folic Acid (Folic Acid) 1 mg PO DAILY [facility] Last Admin: 10/31/17 09:21 Dose: 1 mg Lactulose (Enulose) 20 gm PO Q6H [facility] Last Admin: 10/31/17 12:42 Dose: 20 gm Magnesium Oxide (Mag-Ox) 400 mg PO BID [facility] Last Admin: 10/31/17 09:21 Dose: 400 mg Multivitamins/Minerals (Therapeutic-M Tab) 1 tab PO 0800 [facility] Last Admin: 10/31/17 08:10 Dose: 1 tab Pantoprazole Sodium (Protonix Ec Tab) 40 mg PO DAILY [facility] Last Admin: 10/31/17 09:20 Dose: 40 mg Rifaximin (Xifaxan) 550 mg PO BID [facility] PRN Reason: Protocol Last Admin: 10/31/17 09:25 Dose: 550 mg - Labs Labs: 10/31/17 05:30 10/31/17 05:30 PT 22.9 SECONDS (9.4-12.5) H 10/31/17 05:30 INR 1.96 (0.93-1.08) H 10/31/17 05:30 APTT 46.7 Seconds (25.1-36.5) H 10/27/17 03:45 Attending/Attestation - Attestation I have personally seen and examined this patient.: Yes I have fully participated in the care of the patient.: Yes I have reviewed all pertinent clinical information, including history, physical exam and plan: Yes Notes (Text): 10/31/17 16:29 attending note; Patient seen and examined with resident in ICU. Patient's daughter by the bedside. Patient is a 47 year old female with history of alcoholic liver cirrhosis, S/P TIPS, currently on transplant list in [facility], hepatic encephalopathy, seizure disorder, Lupus is admitted for evaluation of left sided weakness, somnolence and found to have intracerebral hemorrhage most likely due to coagulopathy secondary to liver cirrhosis. currently patient is alert, awake. Slurred speech has improved. patient is able to tolerate diet. she continues to have left sided facial motor weakness and Left upper and lower extremity weakness. encephalopathy;Ammonia level has improved.Continue lactulose and rifaximin. Repeat CT showed stable hemorrhage in the right basal ganglia with mild edema. Physical therapy evaluation appreciated. acute rehabilitation recommended. Case discussed with social media director in detail. [place] versus [place] rehabilitation option given. Plan discussed with patient's daughter in detail. Upon discharge patient will follow up with Dr Guzmán. needs close follow-up with [facility] upon discharge.
[2017-11-01 07:16] LABS: HEMOGLOBIN 8.8 g/dL (12.0-16.0); MEAN CELL VOLUME 108.4 fl (80.0-105.0); MEAN CORPUSCULAR HEMOGLOBIN 35.1 pg (25.0-35.0); MEAN CORPUSCULAR HGB CONC 32.4 g/dl (31.0-37.0); MEAN PLATELET VOLUME 10.6 fl (7.0-11.0); RBC 2.51 10^6/uL (3.5-6.1); RED CELL DISTRIBUTION WIDTH 20.3 % (11.5-14.5); WHITE BLOOD COUNT 13.2 10^3/ul (4.5-11.0)
[2017-11-01 07:40] LABS: INR 1.99 (0.93-1.08); PROTHROMBIN TIME 23.2 SECONDS (9.4-12.5)
[2017-11-01 08:03] LABS: ALB/GLOB RATIO 0.5 (1.1-1.8); ALBUMIN 2.3 g/dL (3.0-4.8); ALT/SGPT 39 U/L (7-56); AST/SGOT 63 U/L (14-36); BLOOD UREA NITROGEN 17 mg/dL (7-21); CALCIUM 8.6 mg/dL (8.4-10.5); GFR AFRICAN-AMERICAN > 60; GFR NON-AFRICAN AMERICAN > 60
[2017-11-01] MEDS: Multivitamin With Minerals Tab PO SCH (08:08)
--- NOTE | 2017-11-01 10:07 | RAD ---
PROCEDURE: CHEST RADIOGRAPH, 1 VIEW HISTORY: r/o aspiration COMPARISON: 10/27/2017 FINDINGS: LUNGS: There is a new infiltrate in the right upper lobe PLEURA: No pneumothorax or pleural fluid seen. CARDIOVASCULAR: Mild cardiomegaly OSSEOUS STRUCTURES: No significant abnormalities. VISUALIZED UPPER ABDOMEN: Normal. OTHER FINDINGS: None. IMPRESSION: Right upper lobe pneumonia
--- NOTE | 2017-11-01 10:12 | CT ---
PROCEDURE: CT HEAD WITHOUT CONTRAST. HISTORY: Intracerebral hemorrhage COMPARISON: Unenhanced head CT 10/31/2017 TECHNIQUE: Axial computed tomography images were obtained through the head/brain without intravenous contrast. Radiation dose: Total exam DLP = 890.93 mGy-cm. This CT exam was performed using one or more of the following dose reduction techniques: Automated exposure control, adjustment of the mA and/or kV according to patient size, and/or use of iterative reconstruction technique. FINDINGS: HEMORRHAGE: Intraparenchymal hemorrhage at the right basal ganglia is not significantly changed, measuring 1.4 x 5.1 x 2 point 8 cm compared to 1.3 x 5.1 x 2.8 cm. No definite midline shift is appreciable although the right lateral ventricle is partially effaced at the frontal horn and anterior body segments. Limited local edema is associated with the periphery of the hemorrhage. No new intra or extra-axial hemorrhage is seen above or below the tentorium. BRAIN: No disturbance in the corticomedullary differentiation is appreciated otherwise and a stable appearance of the supra and infratentorial brain parenchyma is appreciated throughout. No suspicious extra-axial collection is identified. Midline brain anatomy remains unremarkable. VENTRICLES: As above. No hydrocephalus. CALVARIUM: Unremarkable. PARANASAL SINUSES: Unremarkable as visualized. No significant inflammatory changes. MASTOID AIR CELLS: Unremarkable as visualized. No inflammatory changes. OTHER FINDINGS: None. IMPRESSION: Stable right basal ganglia intraparenchymal hemorrhage without in interval increase or decrease in volume. No midline shift though local edema remains limited surrounding the hemorrhagic collection. No new hemorrhage is seen separate from this location.
[2017-11-01] MEDS: Magnesium Oxide 400 mg Tab UD PO SCH ×2 (10:48→18:28)
[2017-11-01] MEDS: Pantoprazole 40 mg EC Tab PO SCH (10:49)
[2017-11-01] MEDS: levoFLOXacin 750 MG TAB PO SCH (12:17)
--- NOTE | 2017-11-01 13:18 | CP.PCM.PN ---
Subjective - Date & Time of Evaluation Date of Evaluation: 11/01/17 Time of Evaluation: 09:55 - Subjective Subjective: Neuro progress note: Pt seen and examined at bedside. No acute events overnight. Pt is able to follow commands. Still has mild L sided weakness. 12 Point ROS performed and negative other than stated above. Objective - Vital Signs/Intake and Output Vital Signs (last 24 hours): Temp Pulse Resp BP Pulse Ox 98.4 F 74 20 158/90 H 96 11/01/17 07:30 11/01/17 07:30 11/01/17 07:30 11/01/17 10:48 11/01/17 07:30 Intake and Output: 11/01/17 11/01/17 06:59 18:59 Intake Total 240 Balance 240 - Medications Medications: Current Medications Albuterol/Ipratropium (Duoneb 3 Mg/0.5 Mg (3 Ml) Ud) 3 ml IH [id number] PRN PRN Reason: Shortness of Breath Dexamethasone (Decadron) 4 mg PO BID [facility] Last Admin: 11/01/17 10:48 Dose: 4 mg Folic Acid (Folic Acid) 1 mg PO DAILY [facility] Last Admin: 11/01/17 10:48 Dose: 1 mg Furosemide (Lasix) 20 mg PO DAILY [facility] Last Admin: 11/01/17 10:48 Dose: 20 mg Lactulose (Enulose) 20 gm PO Q6H [facility] Last Admin: 11/01/17 12:17 Dose: 20 gm Levofloxacin (Levaquin) 750 mg PO DAILY [facility] Stop: 11/07/17 10:01 Last Admin: 11/01/17 12:17 Dose: 750 mg Magnesium Oxide (Mag-Ox) 400 mg PO BID [facility] Last Admin: 11/01/17 10:48 Dose: 400 mg Multivitamins/Minerals (Therapeutic-M Tab) 1 tab PO 0800 [facility] Last Admin: 11/01/17 08:08 Dose: 1 tab Pantoprazole Sodium (Protonix Ec Tab) 40 mg PO DAILY [facility] Last Admin: 11/01/17 10:49 Dose: 40 mg Rifaximin (Xifaxan) 550 mg PO BID [facility] PRN Reason: Protocol Last Admin: 11/01/17 10:49 Dose: 550 mg Spironolactone (Aldactone) 50 mg PO DAILY [facility] Last Admin: 11/01/17 10:47 Dose: 50 mg - Labs Labs: 11/01/17 06:45 11/01/17 06:45 PT 23.2 SECONDS (9.4-12.5) H 11/01/17 06:45 INR 1.99 (0.93-1.08) H 11/01/17 06:45 APTT 46.7 Seconds (25.1-36.5) H 10/27/17 03:45 - Constitutional Appears: No Acute Distress - Eye Exam Eye Exam: EOMI, PERRL Pupil Exam: NORMAL ACCOMODATION - Neurological Exam Neurological Exam: Alert, Awake, CN II-XII Intact, Oriented x3 Neuro motor strength exam: Left Upper Extremity: 4, Right Upper Extremity: 5, Left Lower Extremity: 4, Right Lower Extremity: 5 Assessment and Plan - Assessment and Plan (Free Text) Assessment: 47 year old female with PMHx of decompensated cirrhosis secondary to EtOH abuse , lupus, and seizure disorder who initially presented with altered mental status due to Intracerebral hemorrhage. - CT head w/o contrast - stable intracerebral hemorrhage - HOB elevation at 45 degrees - Maintain SBP between 100 and 150 mm Hg - Control serum glucose to maintain euglycemia blood sugars 140-180 - Neuro-checks - Continue current management per the ICU team - Rehab once patient medically optimized Case and plan was reviewed and discussed in detail with Dr Naik.
--- NOTE | 2017-11-01 17:26 | CP.PCM.PN ---
<Alejandro Morrissey - Last Filed: 11/01/17 17:23> Subjective - Date & Time of Evaluation Date of Evaluation: 11/01/17 Time of Evaluation: 07:50 - Subjective Subjective: Medicine progress note for Dr. Martin Hospitalist Service Patient seen and examined at bedside. Patient states that she is upset this morning about being stuck with needles for blood work. Patient states that she still feels weak at this time. Currently, she denies fever, chills, changes in vision, headache, chest pain, dyspnea, abdominal pain, dysuria. Objective - Vital Signs/Intake and Output Vital Signs (last 24 hours): Temp Pulse Resp BP Pulse Ox 98.4 F 74 20 158/90 H 96 11/01/17 07:30 11/01/17 07:30 11/01/17 07:30 11/01/17 10:48 11/01/17 07:30 Intake and Output: 11/01/17 11/01/17 06:59 18:59 Intake Total 240 480 Balance 240 480 - Medications Medications: Current Medications Albuterol/Ipratropium (Duoneb 3 Mg/0.5 Mg (3 Ml) Ud) 3 ml IH [id number] PRN PRN Reason: Shortness of Breath Dexamethasone (Decadron) 4 mg PO BID [facility] Last Admin: 11/01/17 10:48 Dose: 4 mg Folic Acid (Folic Acid) 1 mg PO DAILY [facility] Last Admin: 11/01/17 10:48 Dose: 1 mg Furosemide (Lasix) 20 mg PO DAILY [facility] Last Admin: 11/01/17 10:48 Dose: 20 mg Lactulose (Enulose) 20 gm PO Q6H [facility] Last Admin: 11/01/17 12:17 Dose: 20 gm Levofloxacin (Levaquin) 750 mg PO DAILY [facility] Stop: 11/07/17 10:01 Last Admin: 11/01/17 12:17 Dose: 750 mg Magnesium Oxide (Mag-Ox) 400 mg PO BID [facility] Last Admin: 11/01/17 10:48 Dose: 400 mg Multivitamins/Minerals (Therapeutic-M Tab) 1 tab PO 0800 [facility] Last Admin: 11/01/17 08:08 Dose: 1 tab Pantoprazole Sodium (Protonix Ec Tab) 40 mg PO DAILY [facility] Last Admin: 11/01/17 10:49 Dose: 40 mg Rifaximin (Xifaxan) 550 mg PO BID [facility] PRN Reason: Protocol Last Admin: 11/01/17 10:49 Dose: 550 mg Spironolactone (Aldactone) 50 mg PO DAILY [facility] Last Admin: 11/01/17 10:47 Dose: 50 mg - Labs Labs: 11/01/17 06:45 11/01/17 06:45 PT 23.2 SECONDS (9.4-12.5) H 11/01/17 06:45 INR 1.99 (0.93-1.08) H 11/01/17 06:45 APTT 46.7 Seconds (25.1-36.5) H 10/27/17 03:45 - Constitutional Appears: No Acute Distress, Chronically Ill - Head Exam Head Exam: ATRAUMATIC, NORMOCEPHALIC - Eye Exam Eye Exam: EOMI, Normal appearance - ENT Exam ENT Exam: Mucous Membranes Moist - Respiratory Exam Respiratory Exam: Clear to Ausculation Bilateral, NORMAL BREATHING PATTERN. absent: Rales, Rhonchi, Wheezes - Cardiovascular Exam Cardiovascular Exam: REGULAR RHYTHM, +S1, +S2 - GI/Abdominal Exam GI & Abdominal Exam: Soft, Normal Bowel Sounds. absent: Distended, Guarding, Tenderness - Extremities Exam Extremities Exam: absent: Pedal Edema, Tenderness - Neurological Exam Neurological Exam: Alert, Awake, CN II-XII Intact (with the exception of left facial droop and slurring of the speech), Oriented x3 Neuro motor strength exam: Left Upper Extremity: 4, Right Upper Extremity: 5, Left Lower Extremity: 4, Right Lower Extremity: 5 - Psychiatric Exam Psychiatric exam: Anxious - Skin Skin Exam: Dry, Warm Assessment and Plan - Assessment and Plan (Free Text) Assessment: 47 year old female with PMHx of decompensated cirrhosis secondary to EtOH abuse , lupus, and seizure disorder who initially presented with altered mental status due to right basal ganglia hemorrhage and metabolic encephalopathy. Ammonia level has come down to normal, but will continue Rifaximin and Lactulose , titrating bowel movements for 2-3 per day. Serial repeat head CT imaging have shown stability in right basal ganglia hemorrhage. INR also remains elevated s/ p 2 units of FFP. Patient found to have aspiration pneumonia. Plan: 1. Right Basal Ganglia Hemorrhage Repeat Head CT demonstrates worsening edema/necrotic tissue Decadron 10 mg q12mg started as per Neurology--switched to PO decadron 4 mg BID on 11/01/17 Per neurology recommendations, keep patient normotensive IVF were stopped to avoid hypertension Will monitor INR closely Repeat Head CT on 10/31/17 and 11/01/17 which showed stability of right basal ganglia hemorrhage 2. Aspiration Pneumonia As evidenced by Chest x-ray on 11/01/17 Likely due to patient's poor eating habits Levaquin 750 mg PO for 7 days started on 11/01/17 3. History of Seizure Disorder Continue to hold Keppra per neurology 4. History of Decompensated Cirrhosis Ammonia within normal limits Continue Lactulose 20 mg PO Q6H with holding parameters to titrate to 2-3 bowel movements daily Continue Xifaximin 550 mg PO BID 5. History of Hypertension Home medications Lasix and Aldactone were restarted due to elevated blood pressure today 6. Prophylaxis Protonix SCDs Disposition: Pending insurance authorization for rehab placement. Follow up with social work and case management. Patient seen and discussed with Dr. Martin <Cornelio Martin - Last Filed: 11/01/17 18:37> Objective - Vital Signs/Intake and Output Vital Signs (last 24 hours): Temp Pulse Resp BP Pulse Ox 98.4 F 74 20 158/90 H 96 11/01/17 07:30 11/01/17 07:30 11/01/17 07:30 11/01/17 10:48 11/01/17 07:30 Intake and Output: 11/01/17 11/01/17 06:59 18:59 Intake Total 240 480 Balance 240 480 - Medications Medications: Current Medications Albuterol/Ipratropium (Duoneb 3 Mg/0.5 Mg (3 Ml) Ud) 3 ml IH [id number] PRN PRN Reason: Shortness of Breath Dexamethasone (Decadron) 4 mg PO BID [facility] Last Admin: 11/01/17 18:28 Dose: 4 mg Folic Acid (Folic Acid) 1 mg PO DAILY [facility] Last Admin: 11/01/17 10:48 Dose: 1 mg Furosemide (Lasix) 20 mg PO DAILY [facility] Last Admin: 11/01/17 10:48 Dose: 20 mg Lactulose (Enulose) 20 gm PO Q6H [facility] Last Admin: 11/01/17 12:17 Dose: 20 gm Levofloxacin (Levaquin) 750 mg PO DAILY [facility] Stop: 11/07/17 10:01 Last Admin: 11/01/17 12:17 Dose: 750 mg Magnesium Oxide (Mag-Ox) 400 mg PO BID [facility] Last Admin: 11/01/17 18:28 Dose: 400 mg Multivitamins/Minerals (Therapeutic-M Tab) 1 tab PO 0800 [facility] Last Admin: 11/01/17 08:08 Dose: 1 tab Pantoprazole Sodium (Protonix Ec Tab) 40 mg PO DAILY [facility] Last Admin: 11/01/17 10:49 Dose: 40 mg Rifaximin (Xifaxan) 550 mg PO BID [facility] PRN Reason: Protocol Last Admin: 11/01/17 18:28 Dose: 550 mg Spironolactone (Aldactone) 50 mg PO DAILY [facility] Last Admin: 11/01/17 10:47 Dose: 50 mg - Labs Labs: 11/01/17 06:45 11/01/17 06:45 PT 23.2 SECONDS (9.4-12.5) H 11/01/17 06:45 INR 1.99 (0.93-1.08) H 11/01/17 06:45 APTT 46.7 Seconds (25.1-36.5) H 10/27/17 03:45 Attending/Attestation - Attestation I have personally seen and examined this patient.: Yes I have fully participated in the care of the patient.: Yes I have reviewed all pertinent clinical information, including history, physical exam and plan: Yes Notes (Text): 11/01/17 18:34 attending note; Patient seen and examined with resident. Patient is a 47 year old female with history of alcoholic liver cirrhosis, S/P TIPS, currently on transplant list in [facility], hepatic encephalopathy, seizure disorder, Lupus is admitted for evaluation of left sided weakness, somnolence and found to have intracerebral hemorrhage most likely due to coagulopathy secondary to liver cirrhosis. currently patient is alert, awake. Slurred speech has improved. patient is able to tolerate diet. speech and swallow evaluation appreciated. she continues to have left sided facial motor weakness and Left upper and lower extremity weakness. aspiration precautions explained to the family in detail. chest x-ray showed pneumonia. Started on levofloxacin. Patient is clinically stable. Afebrile and nontoxic. encephalopathy;Ammonia level has improved.Continue lactulose and rifaximin. Repeat CT showed stable hemorrhage in the right basal ganglia with mild edema. Physical therapy evaluation appreciated. plan to transfer to acute rehabilitation once approved. Upon discharge patient will follow up with .
[2017-11-02] MEDS: Multivitamin With Minerals Tab PO SCH (08:30)
[2017-11-02] MEDS: Pantoprazole 40 mg EC Tab PO SCH (10:39)
[2017-11-02] MEDS: levoFLOXacin 750 MG TAB PO SCH (10:39)
[2017-11-02] MEDS: Magnesium Oxide 400 mg Tab UD PO SCH ×2 (10:39→17:37)
--- NOTE | 2017-11-02 13:37 | CP.PCM.DIS ---
Provider - Provider Date of Admission: 10/27/17 04:59 Attending physician: Cornelio Martin MD Primary care physician: Gurjit Guzmán MD Hospital Course - Lab Results Lab Results: Micro Results 10/27/17 06:15 Urine,Clean Catch Urine Culture - Final 10-50,000 CFU/ML. MULTIPLE SPECIES. PROBABLE CONTAMINATION. Most Recent Lab Values WBC 13.2 10^3/ul (4.5-11.0) H D 11/01/17 06:45 RBC 2.51 10^6/uL (3.5-6.1) L 11/01/17 06:45 Hgb 8.8 g/dL (12.0-16.0) L 11/01/17 06:45 Hct 27.2 % (36.0-48.0) L 11/01/17 06:45 MCV 108.4 fl (80.0-105.0) H 11/01/17 06:45 MCH 35.1 pg (25.0-35.0) H 11/01/17 06:45 MCHC 32.4 g/dl (31.0-37.0) 11/01/17 06:45 RDW 20.3 % (11.5-14.5) H 11/01/17 06:45 Plt Count 113 10^3/uL (120.0-450.0) L 11/01/17 06:45 MPV 10.6 fl (7.0-11.0) 11/01/17 06:45 Gran % 51.7 % (50.0-68.0) 10/30/17 05:30 Lymph % (Auto) 29.1 % (22.0-35.0) 10/30/17 05:30 [place] % (Auto) 13.8 % (1.0-6.0) H 10/30/17 05:30 Eos % (Auto) 4.1 % (1.5-5.0) 10/30/17 05:30 Baso % (Auto) 1.3 % (0.0-3.0) 10/30/17 05:30 Gran # 2.03 (1.4-6.5) 10/30/17 05:30 Lymph # (Auto) 1.1 (1.2-3.4) L 10/30/17 05:30 [place] # (Auto) 0.5 (0.1-0.6) 10/30/17 05:30 Eos # (Auto) 0.2 (0.0-0.7) 10/30/17 05:30 Baso # (Auto) 0.05 K/mm3 (0.0-2.0) 10/30/17 05:30 Neutrophils % (Manual) 45 % (50.0-70.0) L 10/28/17 05:30 Lymphocytes % (Manual) 31 % (22.0-35.0) 10/28/17 05:30 Monocytes % (Manual) 17 % (1.0-6.0) H 10/28/17 05:30 Eosinophils % (Manual) 7 % (0.0-3.0) H 10/28/17 05:30 Nucleated RBC % 1 % 10/28/17 05:30 Platelet Evaluation Low (NORMAL) 10/28/17 05:30 Poikilocytosis (manual 1+ 10/28/17 05:30 Anisocytosis (manual) 1+ 10/28/17 05:30 Microcytosis (manual) Slight 10/28/17 05:30 Macrocytosis (manual) 1+ 10/28/17 05:30 Schistocytes Slight 10/28/17 05:30 PT 23.2 SECONDS (9.4-12.5) H 11/01/17 06:45 INR 1.99 (0.93-1.08) H 11/01/17 06:45 APTT 46.7 Seconds (25.1-36.5) H 10/27/17 03:45 Sodium 142 mmol/L (132-148) 11/01/17 06:45 Potassium 4.6 mmol/L (3.6-5.0) 11/01/17 06:45 Chloride 111 mmol/L (98-107) H 11/01/17 06:45 Carbon Dioxide 25 mmol/L (21-33) 11/01/17 06:45 Anion Gap 11 (10-20) 11/01/17 06:45 BUN 17 mg/dL (7-21) 11/01/17 06:45 Creatinine 0.6 mg/dl (0.7-1.2) L 11/01/17 06:45 Est GFR ( Amer) > 60 11/01/17 06:45 Est GFR (Non-Af Amer) > 60 11/01/17 06:45 Random Glucose 115 mg/dL (70-110) H 11/01/17 06:45 Calcium 8.6 mg/dL (8.4-10.5) 11/01/17 06:45 Phosphorus 4.1 mg/dL (2.5-4.5) 10/27/17 03:45 Magnesium 1.7 mg/dL (1.7-2.2) 10/27/17 03:45 Iron 70 ug/dL (45-180) 10/27/17 08:41 TIBC 328 ug/dL (265-497) 10/27/17 08:41 % Saturation 21 % (20-55) 10/27/17 08:41 Ferritin 36.6 ng/mL 10/27/17 08:41 Total Bilirubin 2.3 mg/dL (0.2-1.3) H 11/01/17 06:45 AST 63 U/L (14-36) H 11/01/17 06:45 ALT 39 U/L (7-56) 11/01/17 06:45 Alkaline Phosphatase 166 U/L (38-126) H 11/01/17 06:45 Ammonia 65 umol/L (9-33) H 10/31/17 05:30 Lactate Dehydrogenase 1174 U/L (333-699) H 10/27/17 03:45 Total Creatine Kinase 141 U/L (35-230) 10/27/17 03:45 Troponin I < 0.01 ng/mL 10/27/17 03:45 Total Protein 6.8 g/dL (5.8-8.3) 11/01/17 06:45 Albumin 2.3 g/dL (3.0-4.8) L 11/01/17 06:45 Globulin 4.5 gm/dL 11/01/17 06:45 Albumin/Globulin Ratio 0.5 (1.1-1.8) L 11/01/17 06:45 Vitamin B12 993 pg/mL (239-931) H 10/27/17 08:41 RBC Folate 855 ng/mL RBC (>280) 10/27/17 08:30 Urine Color Yellow (YELLOW) 10/27/17 06:15 Urine Appearance Clear (CLEAR) 10/27/17 06:15 Urine pH 7.0 (4.7-8.0) 10/27/17 06:15 Ur Specific [place] 1.015 (1.005-1.035) 10/27/17 06:15 Urine Protein Trace mg/dL (<30 mg/dL) H 10/27/17 06:15 Urine Glucose (UA) Negative mg/dL (NEGATIVE) 10/27/17 06:15 Urine Ketones Negative mg/dL (NEGATIVE) 10/27/17 06:15 Urine Blood Small (NEGATIVE) H 10/27/17 06:15 Urine Nitrate Negative (NEGATIVE) 10/27/17 06:15 Urine Bilirubin Small (NEGATIVE) H 10/27/17 06:15 Urine Urobilinogen 1.0 E.U./dL (<1 E.U./dL) H 10/27/17 06:15 Ur Leukocyte Esterase Trace Simran/uL (NEGATIVE) H 10/27/17 06:15 Urine RBC 2 - 5 /hpf (0-2) 10/27/17 06:15 Urine WBC 1 - 3 /hpf (0-6) 10/27/17 06:15 Ur Epithelial Cells 3 - 4 /hpf (0-5) 10/27/17 06:15 Amorphous Sediment Few 10/27/17 06:15 Urine Bacteria Many (NEG) 10/27/17 06:15 Urine Opiates Screen Negative (NEGATIVE) 10/27/17 06:15 Urine Methadone Screen Negative (NEGATIVE) 10/27/17 06:15 Acetaminophen < 10.0 ug/ml (10.0-20.0) L 10/27/17 03:45 Ur Barbiturates Screen Negative (NEGATIVE) 10/27/17 06:15 Ur Phencyclidine Scrn Negative (NEGATIVE) 10/27/17 06:15 Ur Amphetamines Screen Negative (NEGATIVE) 10/27/17 06:15 U Benzodiazepines Scrn Negative (NEGATIVE) 10/27/17 06:15 U Oth Cocaine Metabols Negative (NEGATIVE) 10/27/17 06:15 U Cannabinoids Screen Negative (NEGATIVE) 10/27/17 06:15 Alcohol, Quantitative < 10 mg/dL (0-10) 10/27/17 03:45 Blood Type O POSITIVE 10/27/17 04:50 Antibody Screen Negative 10/27/17 04:50 BBK History Checked Patient has bt 10/27/17 04:50 Discharge Exam - Head Exam Head Exam: ATRAUMATIC, NORMOCEPHALIC Discharge Plan - Discharge Medications Prescriptions: Dexamethasone [Decadron] 4 mg PO BID #10 tab levoFLOXacin [Levaquin] 750 mg PO DAILY #7 tab - Follow Up Plan Condition: CRITICAL Disposition: REHAB FACILITY/REHAB UNIT Referrals: Gurjit Guzmán [Primary Care Provider] -
--- NOTE | 2017-11-02 14:42 | CP.PCM.PN ---
Subjective - Date & Time of Evaluation Date of Evaluation: 11/02/17 Time of Evaluation: 09:30 - Subjective Subjective: Neuro progress note: Pt seen and examined at bedside. No acute events overnight. Pt has some facial droop and slurred speech. She is able to follow commands. Still has mild L sided weakness. 12 Point ROS performed and negative other than stated above. Objective - Vital Signs/Intake and Output Vital Signs (last 24 hours): Temp Pulse Resp BP Pulse Ox 98 F 76 20 134/72 94 L 11/02/17 08:08 11/02/17 08:08 11/02/17 08:08 11/02/17 10:38 11/02/17 08:08 Intake and Output: 11/02/17 11/02/17 06:59 18:59 Intake Total 240 Balance 240 - Medications Medications: Current Medications Albuterol/Ipratropium (Duoneb 3 Mg/0.5 Mg (3 Ml) Ud) 3 ml IH [id number] PRN PRN Reason: Shortness of Breath Dexamethasone (Decadron) 4 mg PO BID [facility] Last Admin: 11/02/17 10:38 Dose: 4 mg Folic Acid (Folic Acid) 1 mg PO DAILY [facility] Last Admin: 11/02/17 10:38 Dose: 1 mg Furosemide (Lasix) 20 mg PO DAILY [facility] Last Admin: 11/02/17 10:38 Dose: 20 mg Lactulose (Enulose) 20 gm PO Q6H [facility] Last Admin: 11/02/17 12:48 Dose: Not Given Levofloxacin (Levaquin) 750 mg PO DAILY [facility] Stop: 11/07/17 10:01 Last Admin: 11/02/17 10:39 Dose: 750 mg Magnesium Oxide (Mag-Ox) 400 mg PO BID [facility] Last Admin: 11/02/17 10:39 Dose: 400 mg Multivitamins/Minerals (Therapeutic-M Tab) 1 tab PO 0800 [facility] Last Admin: 11/02/17 08:30 Dose: Not Given Pantoprazole Sodium (Protonix Ec Tab) 40 mg PO DAILY [facility] Last Admin: 11/02/17 10:39 Dose: 40 mg Rifaximin (Xifaxan) 550 mg PO BID [facility] PRN Reason: Protocol Last Admin: 11/02/17 10:39 Dose: 550 mg Spironolactone (Aldactone) 50 mg PO DAILY [facility] Last Admin: 11/02/17 10:37 Dose: 50 mg - Labs Labs: 11/01/17 06:45 11/01/17 06:45 PT 23.2 SECONDS (9.4-12.5) H 11/01/17 06:45 INR 1.99 (0.93-1.08) H 11/01/17 06:45 APTT 46.7 Seconds (25.1-36.5) H 10/27/17 03:45 - Constitutional Appears: No Acute Distress - Eye Exam Eye Exam: EOMI, PERRL Pupil Exam: NORMAL ACCOMODATION - Neurological Exam Neurological Exam: Alert, Awake, CN II-XII Intact, Oriented x3 Neuro motor strength exam: Left Upper Extremity: 4, Right Upper Extremity: 5, Left Lower Extremity: 4, Right Lower Extremity: 5 Assessment and Plan - Assessment and Plan (Free Text) Assessment: 47 year old female with PMHx of decompensated cirrhosis secondary to EtOH abuse , lupus, and seizure disorder who initially presented with altered mental status due to Intracerebral hemorrhage. - Cont Decadron 4mg BID - taper - CT head w/o contrast - stable intracerebral hemorrhage - HOB elevation at 45 degrees - Maintain SBP between 100 and 150 mm Hg - Rehab - at [facility] - once patient medically optimized Case and plan was reviewed and discussed in detail with Dr Naik.
--- NOTE | 2017-11-02 15:37 | CP.PCM.PN ---
<Alejandro Morrissey - Last Filed: 11/02/17 15:34> Subjective - Date & Time of Evaluation Date of Evaluation: 11/02/17 Time of Evaluation: 07:30 - Subjective Subjective: Medicine progress note for Dr. Martin Hospitalist Service Patient seen and examined at bedside. Patient is upset this morning and is insisting on going to rehab or going home. Currently, she denies fever, chills, changes in vision, headache, chest pain, dyspnea, abdominal pain, dysuria. Objective - Vital Signs/Intake and Output Vital Signs (last 24 hours): Temp Pulse Resp BP Pulse Ox 98 F 76 20 134/72 94 L 11/02/17 08:08 11/02/17 08:08 11/02/17 08:08 11/02/17 10:38 11/02/17 08:08 Intake and Output: 11/02/17 11/02/17 06:59 18:59 Intake Total 240 500 Balance 240 500 - Medications Medications: Current Medications Albuterol/Ipratropium (Duoneb 3 Mg/0.5 Mg (3 Ml) Ud) 3 ml IH [id number] PRN PRN Reason: Shortness of Breath Dexamethasone (Decadron) 4 mg PO BID [facility] Last Admin: 11/02/17 10:38 Dose: 4 mg Folic Acid (Folic Acid) 1 mg PO DAILY [facility] Last Admin: 11/02/17 10:38 Dose: 1 mg Furosemide (Lasix) 20 mg PO DAILY [facility] Last Admin: 11/02/17 10:38 Dose: 20 mg Lactulose (Enulose) 20 gm PO Q6H [facility] Last Admin: 11/02/17 12:48 Dose: Not Given Levofloxacin (Levaquin) 750 mg PO DAILY [facility] Stop: 11/07/17 10:01 Last Admin: 11/02/17 10:39 Dose: 750 mg Magnesium Oxide (Mag-Ox) 400 mg PO BID [facility] Last Admin: 11/02/17 10:39 Dose: 400 mg Multivitamins/Minerals (Therapeutic-M Tab) 1 tab PO 0800 [facility] Last Admin: 11/02/17 08:30 Dose: Not Given Pantoprazole Sodium (Protonix Ec Tab) 40 mg PO DAILY [facility] Last Admin: 11/02/17 10:39 Dose: 40 mg Rifaximin (Xifaxan) 550 mg PO BID [facility] PRN Reason: Protocol Last Admin: 11/02/17 10:39 Dose: 550 mg Spironolactone (Aldactone) 50 mg PO DAILY [facility] Last Admin: 11/02/17 10:37 Dose: 50 mg - Labs Labs: 11/01/17 06:45 11/01/17 06:45 PT 23.2 SECONDS (9.4-12.5) H 11/01/17 06:45 INR 1.99 (0.93-1.08) H 11/01/17 06:45 APTT 46.7 Seconds (25.1-36.5) H 10/27/17 03:45 - Constitutional Appears: No Acute Distress, Chronically Ill - Head Exam Head Exam: ATRAUMATIC, NORMOCEPHALIC - Eye Exam Eye Exam: EOMI, Normal appearance - ENT Exam ENT Exam: Mucous Membranes Moist - Respiratory Exam Respiratory Exam: Clear to Ausculation Bilateral, NORMAL BREATHING PATTERN. absent: Rales, Rhonchi, Wheezes - Cardiovascular Exam Cardiovascular Exam: REGULAR RHYTHM, +S1, +S2 - GI/Abdominal Exam GI & Abdominal Exam: Soft, Normal Bowel Sounds. absent: Distended, Guarding, Tenderness - Extremities Exam Extremities Exam: Pedal Edema - Neurological Exam Neurological Exam: Alert, Awake, Oriented x3 - Psychiatric Exam Psychiatric exam: Anxious - Skin Skin Exam: Dry, Warm Assessment and Plan - Assessment and Plan (Free Text) Assessment: 47 year old female with PMHx of decompensated cirrhosis secondary to EtOH abuse , lupus, and seizure disorder who initially presented with altered mental status due to right basal ganglia hemorrhage and metabolic encephalopathy. Ammonia level has come down to normal, but will continue Rifaximin and Lactulose , titrating bowel movements for 2-3 per day. Serial repeat head CT imaging have shown stability in right basal ganglia hemorrhage. INR also remains elevated s/ p 2 units of FFP. Patient found to have aspiration pneumonia. Patient has been accepted to [facility] for acute rehab and will be transferred tomorrow. Plan: 1. Right Basal Ganglia Hemorrhage Repeat Head CT demonstrates worsening edema/necrotic tissue Decadron 10 mg q12mg started as per Neurology--switched to PO decadron 4 mg BID on 11/01/17 Per neurology recommendations, keep patient normotensive IVF were stopped to avoid hypertension Will monitor INR closely Repeat Head CT on 10/31/17 and 11/01/17 which showed stability of right basal ganglia hemorrhage 2. Aspiration Pneumonia As evidenced by Chest x-ray on 11/01/17 Likely due to patient's poor eating habits Levaquin 750 mg PO for 7 days started on 11/01/17 3. History of Seizure Disorder Continue to hold Keppra per neurology 4. History of Decompensated Cirrhosis Ammonia within normal limits Continue Lactulose 20 mg PO Q6H with holding parameters to titrate to 2-3 bowel movements daily Continue Xifaximin 550 mg PO BID 5. History of Hypertension Home medications Lasix and Aldactone 6. Prophylaxis Protonix SCDs Disposition: Patient accepted for 7 days of acute rehab at [facility] and is pending transfer tomorrow. Patient seen and discussed with Dr. Martin <Cornelio Martin - Last Filed: 11/02/17 18:44> Objective - Vital Signs/Intake and Output Vital Signs (last 24 hours): Temp Pulse Resp BP Pulse Ox 97.3 F L 78 18 139/82 93 L 11/02/17 16:00 11/02/17 16:00 11/02/17 16:00 11/02/17 16:00 11/02/17 16:00 Intake and Output: 11/02/17 11/02/17 06:59 18:59 Intake Total 240 500 Balance 240 500 - Medications Medications: Current Medications Albuterol/Ipratropium (Duoneb 3 Mg/0.5 Mg (3 Ml) Ud) 3 ml IH [id number] PRN PRN Reason: Shortness of Breath Dexamethasone (Decadron) 4 mg PO BID [facility] Last Admin: 11/02/17 17:37 Dose: 4 mg Folic Acid (Folic Acid) 1 mg PO DAILY [facility] Last Admin: 11/02/17 10:38 Dose: 1 mg Furosemide (Lasix) 20 mg PO DAILY [facility] Last Admin: 11/02/17 10:38 Dose: 20 mg Lactulose (Enulose) 20 gm PO Q6H [facility] Last Admin: 11/02/17 12:48 Dose: Not Given Levofloxacin (Levaquin) 750 mg PO DAILY [facility] Stop: 11/07/17 10:01 Last Admin: 11/02/17 10:39 Dose: 750 mg Magnesium Oxide (Mag-Ox) 400 mg PO BID [facility] Last Admin: 11/02/17 17:37 Dose: 400 mg Multivitamins/Minerals (Therapeutic-M Tab) 1 tab PO 0800 [facility] Last Admin: 11/02/17 08:30 Dose: Not Given Pantoprazole Sodium (Protonix Ec Tab) 40 mg PO DAILY [facility] Last Admin: 11/02/17 10:39 Dose: 40 mg Rifaximin (Xifaxan) 550 mg PO BID [facility] PRN Reason: Protocol Last Admin: 11/02/17 17:37 Dose: 550 mg Spironolactone (Aldactone) 50 mg PO DAILY [facility] Last Admin: 11/02/17 10:37 Dose: 50 mg - Labs Labs: 11/01/17 06:45 11/01/17 06:45 PT 23.2 SECONDS (9.4-12.5) H 11/01/17 06:45 INR 1.99 (0.93-1.08) H 11/01/17 06:45 APTT 46.7 Seconds (25.1-36.5) H 10/27/17 03:45 Attending/Attestation - Attestation I have personally seen and examined this patient.: Yes I have fully participated in the care of the patient.: Yes I have reviewed all pertinent clinical information, including history, physical exam and plan: Yes Notes (Text): 11/02/17 18:43 attending note; Patient seen and examined with resident. Patient is a 47 year old female with history of alcoholic liver cirrhosis, S/P TIPS, currently on transplant list in [facility], hepatic encephalopathy, seizure disorder, Lupus is admitted for evaluation of left sided weakness, somnolence and found to have intracerebral hemorrhage most likely due to coagulopathy secondary to liver cirrhosis. currently patient is alert, awake. Slurred speech has improved. patient is able to tolerate diet. speech and swallow evaluation appreciated. she continues to have left sided facial motor weakness and Left upper and lower extremity weakness. aspiration precautions explained to the family in detail. chest x-ray showed pneumonia. Started on levofloxacin. Patient is clinically stable. Afebrile and nontoxic. Repeat CT showed stable hemorrhage in the right basal ganglia with mild edema. Physical therapy evaluation appreciated. plan to transfer to acute rehabilitation once approved. Patient refused rehabilitation. Patient was educated in detail about the need for aggressive physical therapy. Pending rehabilitation acceptance. Upon discharge patient will follow up with .
[2017-11-03] MEDS: Multivitamin With Minerals Tab PO SCH (07:35)
[2017-11-03 08:20] VITALS: PULSE 66; RESP 20; TEMP 98.6; O2SAT 100
[2017-11-03] MEDS: Pantoprazole 40 mg EC Tab PO SCH (11:01)
[2017-11-03] MEDS: levoFLOXacin 750 MG TAB PO SCH (11:01)
[2017-11-03] MEDS: Magnesium Oxide 400 mg Tab UD PO SCH (11:02)
[2017-11-03 11:14] VITALS: BP 170/66
--- NOTE | 2017-11-03 11:15 | CP.PCM.DIS ---
<Alejandro Morrissey - Last Filed: 11/03/17 11:09> Provider - Provider Date of Admission: 10/27/17 04:59 Attending physician: Cornelio Martin MD Primary care physician: Gurjit Guzmán MD Consults: Neurology: Dr. Bradley Neurosurgery: Dr. Mccall Time Spent in preparation of Discharge (in minutes): 40 Diagnosis - Discharge Diagnosis (1) Nontraumatic intracerebral hemorrhage of basal ganglia Status: Acute Priority: High (2) Hepatic encephalopathy Status: Acute Priority: High (3) Aspiration pneumonia Status: Acute Priority: High (4) History of seizure disorder Status: Chronic Priority: Medium (5) Decompensated hepatic cirrhosis Status: Chronic Priority: Medium (6) History of hypertension Status: Chronic Priority: Medium (7) History of lupus Status: Chronic Priority: Medium Hospital Course - Lab Results Lab Results: Micro Results 10/27/17 06:15 Urine,Clean Catch Urine Culture - Final 10-50,000 CFU/ML. MULTIPLE SPECIES. PROBABLE CONTAMINATION. Most Recent Lab Values WBC 13.2 10^3/ul (4.5-11.0) H D 11/01/17 06:45 RBC 2.51 10^6/uL (3.5-6.1) L 11/01/17 06:45 Hgb 8.8 g/dL (12.0-16.0) L 11/01/17 06:45 Hct 27.2 % (36.0-48.0) L 11/01/17 06:45 MCV 108.4 fl (80.0-105.0) H 11/01/17 06:45 MCH 35.1 pg (25.0-35.0) H 11/01/17 06:45 MCHC 32.4 g/dl (31.0-37.0) 11/01/17 06:45 RDW 20.3 % (11.5-14.5) H 11/01/17 06:45 Plt Count 113 10^3/uL (120.0-450.0) L 11/01/17 06:45 MPV 10.6 fl (7.0-11.0) 11/01/17 06:45 Gran % 51.7 % (50.0-68.0) 10/30/17 05:30 Lymph % (Auto) 29.1 % (22.0-35.0) 10/30/17 05:30 [place] % (Auto) 13.8 % (1.0-6.0) H 10/30/17 05:30 Eos % (Auto) 4.1 % (1.5-5.0) 10/30/17 05:30 Baso % (Auto) 1.3 % (0.0-3.0) 10/30/17 05:30 Gran # 2.03 (1.4-6.5) 10/30/17 05:30 Lymph # (Auto) 1.1 (1.2-3.4) L 10/30/17 05:30 [place] # (Auto) 0.5 (0.1-0.6) 10/30/17 05:30 Eos # (Auto) 0.2 (0.0-0.7) 10/30/17 05:30 Baso # (Auto) 0.05 K/mm3 (0.0-2.0) 10/30/17 05:30 Neutrophils % (Manual) 45 % (50.0-70.0) L 10/28/17 05:30 Lymphocytes % (Manual) 31 % (22.0-35.0) 10/28/17 05:30 Monocytes % (Manual) 17 % (1.0-6.0) H 10/28/17 05:30 Eosinophils % (Manual) 7 % (0.0-3.0) H 10/28/17 05:30 Nucleated RBC % 1 % 10/28/17 05:30 Platelet Evaluation Low (NORMAL) 10/28/17 05:30 Poikilocytosis (manual 1+ 10/28/17 05:30 Anisocytosis (manual) 1+ 10/28/17 05:30 Microcytosis (manual) Slight 10/28/17 05:30 Macrocytosis (manual) 1+ 10/28/17 05:30 Schistocytes Slight 10/28/17 05:30 PT 23.2 SECONDS (9.4-12.5) H 11/01/17 06:45 INR 1.99 (0.93-1.08) H 11/01/17 06:45 APTT 46.7 Seconds (25.1-36.5) H 10/27/17 03:45 Sodium 142 mmol/L (132-148) 11/01/17 06:45 Potassium 4.6 mmol/L (3.6-5.0) 11/01/17 06:45 Chloride 111 mmol/L (98-107) H 11/01/17 06:45 Carbon Dioxide 25 mmol/L (21-33) 11/01/17 06:45 Anion Gap 11 (10-20) 11/01/17 06:45 BUN 17 mg/dL (7-21) 11/01/17 06:45 Creatinine 0.6 mg/dl (0.7-1.2) L 11/01/17 06:45 Est GFR ( Amer) > 60 11/01/17 06:45 Est GFR (Non-Af Amer) > 60 11/01/17 06:45 Random Glucose 115 mg/dL (70-110) H 11/01/17 06:45 Calcium 8.6 mg/dL (8.4-10.5) 11/01/17 06:45 Phosphorus 4.1 mg/dL (2.5-4.5) 10/27/17 03:45 Magnesium 1.7 mg/dL (1.7-2.2) 10/27/17 03:45 Iron 70 ug/dL (45-180) 10/27/17 08:41 TIBC 328 ug/dL (265-497) 10/27/17 08:41 % Saturation 21 % (20-55) 10/27/17 08:41 Ferritin 36.6 ng/mL 10/27/17 08:41 Total Bilirubin 2.3 mg/dL (0.2-1.3) H 11/01/17 06:45 AST 63 U/L (14-36) H 11/01/17 06:45 ALT 39 U/L (7-56) 11/01/17 06:45 Alkaline Phosphatase 166 U/L (38-126) H 11/01/17 06:45 Ammonia 65 umol/L (9-33) H 10/31/17 05:30 Lactate Dehydrogenase 1174 U/L (333-699) H 10/27/17 03:45 Total Creatine Kinase 141 U/L (35-230) 10/27/17 03:45 Troponin I < 0.01 ng/mL 10/27/17 03:45 Total Protein 6.8 g/dL (5.8-8.3) 11/01/17 06:45 Albumin 2.3 g/dL (3.0-4.8) L 11/01/17 06:45 Globulin 4.5 gm/dL 11/01/17 06:45 Albumin/Globulin Ratio 0.5 (1.1-1.8) L 11/01/17 06:45 Vitamin B12 993 pg/mL (239-931) H 10/27/17 08:41 RBC Folate 855 ng/mL RBC (>280) 10/27/17 08:30 Urine Color Yellow (YELLOW) 10/27/17 06:15 Urine Appearance Clear (CLEAR) 10/27/17 06:15 Urine pH 7.0 (4.7-8.0) 10/27/17 06:15 Ur Specific [place] 1.015 (1.005-1.035) 10/27/17 06:15 Urine Protein Trace mg/dL (<30 mg/dL) H 10/27/17 06:15 Urine Glucose (UA) Negative mg/dL (NEGATIVE) 10/27/17 06:15 Urine Ketones Negative mg/dL (NEGATIVE) 10/27/17 06:15 Urine Blood Small (NEGATIVE) H 10/27/17 06:15 Urine Nitrate Negative (NEGATIVE) 10/27/17 06:15 Urine Bilirubin Small (NEGATIVE) H 10/27/17 06:15 Urine Urobilinogen 1.0 E.U./dL (<1 E.U./dL) H 10/27/17 06:15 Ur Leukocyte Esterase Trace Simran/uL (NEGATIVE) H 10/27/17 06:15 Urine RBC 2 - 5 /hpf (0-2) 10/27/17 06:15 Urine WBC 1 - 3 /hpf (0-6) 10/27/17 06:15 Ur Epithelial Cells 3 - 4 /hpf (0-5) 10/27/17 06:15 Amorphous Sediment Few 10/27/17 06:15 Urine Bacteria Many (NEG) 10/27/17 06:15 Urine Opiates Screen Negative (NEGATIVE) 10/27/17 06:15 Urine Methadone Screen Negative (NEGATIVE) 10/27/17 06:15 Acetaminophen < 10.0 ug/ml (10.0-20.0) L 10/27/17 03:45 Ur Barbiturates Screen Negative (NEGATIVE) 10/27/17 06:15 Ur Phencyclidine Scrn Negative (NEGATIVE) 10/27/17 06:15 Ur Amphetamines Screen Negative (NEGATIVE) 10/27/17 06:15 U Benzodiazepines Scrn Negative (NEGATIVE) 10/27/17 06:15 U Oth Cocaine Metabols Negative (NEGATIVE) 10/27/17 06:15 U Cannabinoids Screen Negative (NEGATIVE) 10/27/17 06:15 Alcohol, Quantitative < 10 mg/dL (0-10) 10/27/17 03:45 Blood Type O POSITIVE 10/27/17 04:50 Antibody Screen Negative 10/27/17 04:50 BBK History Checked Patient has bt 10/27/17 04:50 - Hospital Course Hospital Course: Initial History of Present Illness on 10/27/17: "Patient is a 47 y/o with PMHx of 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 As per patient's daughter they last saw patient well at 4:30 pm. At 1:30 am, when daughter checked on patient patient was slumped on the sofa, and was not responding. Daughter was able to arouse patient, patient was able to say she wanted to void, however when patient tried to get up , her left upper and lower extremities were weak. Upon, evaluating patient in the ED, patient was arousable, denies headache. Patient was voluntary moving her right upper upper and lower extremities." Hospital Course: Patient admitted for altered mental status due to right basal ganglia hemorrhage. Hemorrhage likely due to coagulopathies stemming from the patient's cirrhosis. Patient presented with left sided facial droop and left sided weakness which has improved since admission. Serial CT imaging has shown stability of the intracranial hemorrhage. Patient is on Decadron and Magnesium oxide for headaches secondary to the intracranial hemorrhage. Patient was also with hepatic encephalopathy which has improved since initiating Lactulose and Rifaximin. Patient with poor adherence to speech/dietary recommendations for eating her finely chopped diet. Family has also been bringing food for the patient. Patient diagnosed with aspiration pneumonia for which she is being treated with Levaquin. Patient discharged to [facility] for acute rehabilitation. This is a summary of the hospital course. For more information, refer to the medical records. Discharge Exam - Head Exam Head Exam: ATRAUMATIC, NORMOCEPHALIC - Eye Exam Eye Exam: EOMI, Normal appearance - ENT Exam ENT Exam: Mucous Membranes Moist - Respiratory Exam Respiratory Exam: Clear to PA & Lateral, NORMAL BREATHING PATTERN. absent: Rales, Rhonchi, Wheezes - Cardiovascular Exam Cardiovascular Exam: REGULAR RHYTHM, +S1, +S2 - GI/Abdominal Exam GI & Abdominal Exam: Normal Bowel Sounds, Soft. absent: Distended, Guarding, Tenderness - Extremities Exam Extremities exam: pedal edema, pedal pulses present - Neurological Exam Neurological exam: Alert, Oriented x3 Additional comments: Left sided facial droop Manual muscle strength testing: Left upper extremity: 4/5 Left lower extremity: 4/5 Right upper extremity: 5/5 Right lower extremity: 5/5 - Psychiatric Exam Psychiatric exam: Anxious - Skin Skin Exam: Dry, Warm Discharge Plan - Discharge Medications Prescriptions: Dexamethasone [Decadron] 4 mg PO BID #10 tab levoFLOXacin [Levaquin] 750 mg PO DAILY #7 tab - Follow Up Plan Condition: STABLE Disposition: TRANSF TO SNF Instructions: Hemorrhagic Stroke, Performing Self-Care Activities When You Have Weakness on One Side Additional Instructions: Transferred to [place] acute rehabilitation today. 1. follow-up with PMD Dr. Guzmán. 2. Aspiration precautions. 3. continue aggressive physical therapy. 4.follow-up with [facility] transplant clinic. Referrals: Gurjit Guzmán [Primary Care Provider] - <Cornelio Martin - Last Filed: 11/03/17 15:54> Provider - Provider Date of Admission: 10/27/17 04:59 Attending physician: Cornelio Martin MD Primary care physician: Gurjit Guzmán MD Hospital Course - Lab Results Lab Results: Micro Results 10/27/17 06:15 Urine,Clean Catch Urine Culture - Final 10-50,000 CFU/ML. MULTIPLE SPECIES. PROBABLE CONTAMINATION. Most Recent Lab Values WBC 13.2 10^3/ul (4.5-11.0) H D 11/01/17 06:45 RBC 2.51 10^6/uL (3.5-6.1) L 11/01/17 06:45 Hgb 8.8 g/dL (12.0-16.0) L 11/01/17 06:45 Hct 27.2 % (36.0-48.0) L 11/01/17 06:45 MCV 108.4 fl (80.0-105.0) H 11/01/17 06:45 MCH 35.1 pg (25.0-35.0) H 11/01/17 06:45 MCHC 32.4 g/dl (31.0-37.0) 11/01/17 06:45 RDW 20.3 % (11.5-14.5) H 11/01/17 06:45 Plt Count 113 10^3/uL (120.0-450.0) L 11/01/17 06:45 MPV 10.6 fl (7.0-11.0) 11/01/17 06:45 Gran % 51.7 % (50.0-68.0) 10/30/17 05:30 Lymph % (Auto) 29.1 % (22.0-35.0) 10/30/17 05:30 [place] % (Auto) 13.8 % (1.0-6.0) H 10/30/17 05:30 Eos % (Auto) 4.1 % (1.5-5.0) 10/30/17 05:30 Baso % (Auto) 1.3 % (0.0-3.0) 10/30/17 05:30 Gran # 2.03 (1.4-6.5) 10/30/17 05:30 Lymph # (Auto) 1.1 (1.2-3.4) L 10/30/17 05:30 [place] # (Auto) 0.5 (0.1-0.6) 10/30/17 05:30 Eos # (Auto) 0.2 (0.0-0.7) 10/30/17 05:30 Baso # (Auto) 0.05 K/mm3 (0.0-2.0) 10/30/17 05:30 Neutrophils % (Manual) 45 % (50.0-70.0) L 10/28/17 05:30 Lymphocytes % (Manual) 31 % (22.0-35.0) 10/28/17 05:30 Monocytes % (Manual) 17 % (1.0-6.0) H 10/28/17 05:30 Eosinophils % (Manual) 7 % (0.0-3.0) H 10/28/17 05:30 Nucleated RBC % 1 % 10/28/17 05:30 Platelet Evaluation Low (NORMAL) 10/28/17 05:30 Poikilocytosis (manual 1+ 10/28/17 05:30 Anisocytosis (manual) 1+ 10/28/17 05:30 Microcytosis (manual) Slight 10/28/17 05:30 Macrocytosis (manual) 1+ 10/28/17 05:30 Schistocytes Slight 10/28/17 05:30 PT 23.2 SECONDS (9.4-12.5) H 11/01/17 06:45 INR 1.99 (0.93-1.08) H 11/01/17 06:45 APTT 46.7 Seconds (25.1-36.5) H 10/27/17 03:45 Sodium 142 mmol/L (132-148) 11/01/17 06:45 Potassium 4.6 mmol/L (3.6-5.0) 11/01/17 06:45 Chloride 111 mmol/L (98-107) H 11/01/17 06:45 Carbon Dioxide 25 mmol/L (21-33) 11/01/17 06:45 Anion Gap 11 (10-20) 11/01/17 06:45 BUN 17 mg/dL (7-21) 11/01/17 06:45 Creatinine 0.6 mg/dl (0.7-1.2) L 11/01/17 06:45 Est GFR ( Amer) > 60 11/01/17 06:45 Est GFR (Non-Af Amer) > 60 11/01/17 06:45 Random Glucose 115 mg/dL (70-110) H 11/01/17 06:45 Calcium 8.6 mg/dL (8.4-10.5) 11/01/17 06:45 Phosphorus 4.1 mg/dL (2.5-4.5) 10/27/17 03:45 Magnesium 1.7 mg/dL (1.7-2.2) 10/27/17 03:45 Iron 70 ug/dL (45-180) 10/27/17 08:41 TIBC 328 ug/dL (265-497) 10/27/17 08:41 % Saturation 21 % (20-55) 10/27/17 08:41 Ferritin 36.6 ng/mL 10/27/17 08:41 Total Bilirubin 2.3 mg/dL (0.2-1.3) H 11/01/17 06:45 AST 63 U/L (14-36) H 11/01/17 06:45 ALT 39 U/L (7-56) 11/01/17 06:45 Alkaline Phosphatase 166 U/L (38-126) H 11/01/17 06:45 Ammonia 65 umol/L (9-33) H 10/31/17 05:30 Lactate Dehydrogenase 1174 U/L (333-699) H 10/27/17 03:45 Total Creatine Kinase 141 U/L (35-230) 10/27/17 03:45 Troponin I < 0.01 ng/mL 10/27/17 03:45 Total Protein 6.8 g/dL (5.8-8.3) 11/01/17 06:45 Albumin 2.3 g/dL (3.0-4.8) L 11/01/17 06:45 Globulin 4.5 gm/dL 11/01/17 06:45 Albumin/Globulin Ratio 0.5 (1.1-1.8) L 11/01/17 06:45 Vitamin B12 993 pg/mL (239-931) H 10/27/17 08:41 RBC Folate 855 ng/mL RBC (>280) 10/27/17 08:30 Urine Color Yellow (YELLOW) 10/27/17 06:15 Urine Appearance Clear (CLEAR) 10/27/17 06:15 Urine pH 7.0 (4.7-8.0) 10/27/17 06:15 Ur Specific [place] 1.015 (1.005-1.035) 10/27/17 06:15 Urine Protein Trace mg/dL (<30 mg/dL) H 10/27/17 06:15 Urine Glucose (UA) Negative mg/dL (NEGATIVE) 10/27/17 06:15 Urine Ketones Negative mg/dL (NEGATIVE) 10/27/17 06:15 Urine Blood Small (NEGATIVE) H 10/27/17 06:15 Urine Nitrate Negative (NEGATIVE) 10/27/17 06:15 Urine Bilirubin Small (NEGATIVE) H 10/27/17 06:15 Urine Urobilinogen 1.0 E.U./dL (<1 E.U./dL) H 10/27/17 06:15 Ur Leukocyte Esterase Trace Simran/uL (NEGATIVE) H 10/27/17 06:15 Urine RBC 2 - 5 /hpf (0-2) 10/27/17 06:15 Urine WBC 1 - 3 /hpf (0-6) 10/27/17 06:15 Ur Epithelial Cells 3 - 4 /hpf (0-5) 10/27/17 06:15 Amorphous Sediment Few 10/27/17 06:15 Urine Bacteria Many (NEG) 10/27/17 06:15 Urine Opiates Screen Negative (NEGATIVE) 10/27/17 06:15 Urine Methadone Screen Negative (NEGATIVE) 10/27/17 06:15 Acetaminophen < 10.0 ug/ml (10.0-20.0) L 10/27/17 03:45 Ur Barbiturates Screen Negative (NEGATIVE) 10/27/17 06:15 Ur Phencyclidine Scrn Negative (NEGATIVE) 10/27/17 06:15 Ur Amphetamines Screen Negative (NEGATIVE) 10/27/17 06:15 U Benzodiazepines Scrn Negative (NEGATIVE) 10/27/17 06:15 U Oth Cocaine Metabols Negative (NEGATIVE) 10/27/17 06:15 U Cannabinoids Screen Negative (NEGATIVE) 10/27/17 06:15 Alcohol, Quantitative < 10 mg/dL (0-10) 10/27/17 03:45 Blood Type O POSITIVE 10/27/17 04:50 Antibody Screen Negative 10/27/17 04:50 BBK History Checked Patient has bt 10/27/17 04:50 Attending/Attestation - Attestation I have personally seen and examined this patient.: Yes I have fully participated in the care of the patient.: Yes I have reviewed all pertinent clinical information, including history, physical exam and plan: Yes Notes (Text): 11/03/17 15:53 attending note; Patient seen and examined with resident. Patient is a 47 year old female with history of alcoholic liver cirrhosis, S/P TIPS, currently on transplant list in [facility], hepatic encephalopathy, seizure disorder, Lupus is admitted for evaluation of left sided weakness, somnolence and found to have intracerebral hemorrhage most likely due to coagulopathy secondary to liver cirrhosis. currently patient is alert, awake. Slurred speech has improved. patient is able to tolerate diet. speech and swallow evaluation appreciated. she continues to have left sided facial motor weakness and Left upper and lower extremity weakness. aspiration precautions explained to the family in detail. chest x-ray showed pneumonia. Started on levofloxacin. Patient is clinically stable. Afebrile and nontoxic. Repeat CT showed stable hemorrhage in the right basal ganglia with mild edema. Physical therapy evaluation appreciated. plan to transfer to acute rehabilitation once approved. Patient refused rehabilitation. Patient was educated in detail about the need for aggressive physical therapy. transfer to [place] rehabilitation today. Upon discharge patient will follow up with .
== END 2017-11-03 13:13 | DRG 64 ==
LOC: ED 02:42 → ERH 04:59 → ICU 06:36 → 5RNO 10-31 18:05
PROVIDERS: ADMIT Hospitalist; ATTEND Internal Medicine
DX: I61.2 Nontraumatic intracerebral hemorrhage in hemisphere, unspecified (principal); J69.0 Pneumonitis due to inhalation of food and vomit; G93.41 Metabolic encephalopathy; G93.6 Cerebral edema; Z76.82 Awaiting organ transplant status; D68.4 Acquired coagulation factor deficiency; M32.9 Systemic lupus erythematosus, unspecified; G81.94 Hemiplegia, unspecified affecting left nondominant side; K72.90 Hepatic failure, unspecified without coma; K70.30 Alcoholic cirrhosis of liver without ascites; G40.909 Epilepsy, unspecified, not intractable, without status epilepticus; R47.81 Slurred speech; I10 Essential (primary) hypertension; D50.9 Iron deficiency anemia, unspecified; R29.710 NIHSS score 10; Z96.652 Presence of left artificial knee joint; Z87.891 Personal history of nicotine dependence